=== PATIENT | female | born 1940 | race Hispanic/Latino ===

== ENCOUNTER 2018-05-14 18:36 | Inpatient (IN) | payer MEDICARE, OTHER ==
[2018-05-14] MEDS ORDERED: Sodium Chloride 0.9% 1,000 ML IV ONE (19:06)
[2018-05-14] MEDS ORDERED: Sodium Chloride 0.9% 500 ML IV ONE ×2 (19:06→19:38)
--- NOTE | 2018-05-14 19:09 | C.PDOC ---
Chief Complaint (Nursing): GI Problem Past Medical History Vital Signs: Last Vital Signs Temp 97.7 F 05/14/18 18:49 Pulse 85 05/14/18 18:49 Resp 20 05/14/18 18:49 BP 152/96 H 05/14/18 18:49 Pulse Ox 99 05/14/18 18:49 - Medical History PMH: CHF, COPD, HTN - Social History Hx Tobacco Use: No Hx Alcohol Use: No Hx Substance Use: No - Immunization History Hx Tetanus Toxoid Vaccination: No Hx Influenza Vaccination: No Hx Pneumococcal Vaccination: No ED Course And Treatment ECG: Interpreted By Me, Viewed By Me ECG Rhythm: Sinus Rhythm, R BBB, ST/T Changes ECG Interpretation: No Acute Changes Interpretation Of ECG: Sinusrhythm with premature supraventricular complexes, prolonged QT. abnormal tracings. Rate From EC O2 Sat by Pulse Oximetry: 99 Pulse Ox Interpretation: Normal Disposition - Disposition
--- NOTE | 2018-05-14 19:11 | C.PDOC ---
History Of Present Illness 77 year old female presents to the ED for evaluation of left lower abdominal pain x7 associated with vomiting x3 days and diarrhea x2 days. She denies fever, chills, back pain, urine changes, vaginal changes, and any other associated symptoms. Chief Complaint (Nursing): GI Problem History Per: Patient History/Exam Limitations: no limitations Onset/Duration Of Symptoms: Days Current Symptoms Are (Timing): Still Present Past Medical History Reviewed: Historical Data, Nursing Documentation, Vital Signs Vital Signs: Last Vital Signs Temp 97.7 F 05/14/18 18:49 Pulse 85 05/14/18 18:49 Resp 20 05/14/18 18:49 BP 152/96 H 05/14/18 18:49 Pulse Ox 99 05/14/18 18:49 - Medical History PMH: CHF, COPD, HTN Family History: States: Unknown Family Hx - Social History Hx Tobacco Use: No Hx Alcohol Use: No Hx Substance Use: No - Immunization History Hx Tetanus Toxoid Vaccination: No Hx Influenza Vaccination: No Hx Pneumococcal Vaccination: No Review Of Systems Except As Marked, All Systems Reviewed And Found Negative. Constitutional: Negative for: Fever, Chills Gastrointestinal: Positive for: Vomiting, Abdominal Pain ( left lower quadrant.), Diarrhea Genitourinary: Negative for: Frequency, Incontinence, Vaginal Discharge, Vaginal Bleeding Musculoskeletal: Negative for: Back Pain Physical Exam - Physical Exam Appears: Well, Non-toxic, Other (mild distress. ) Skin: Normal Color, Warm, Dry Head: Atraumatic, Normacephalic Eye(s): bilateral: Normal Inspection Oral Mucosa: Moist Neck: Normal ROM, Supple Chest: Symmetrical, No Deformity Cardiovascular: Rhythm Regular, No Murmur Respiratory: Normal Breath Sounds, No Rales, No Rhonchi, No Wheezing Gastrointestinal/Abdominal: Soft, Tenderness (over the left lower quadrant. ), No Mass, No Distention, No Guarding, No Rebound Back: Normal Inspection, No CVA Tenderness Neurological/Psych: Oriented x3, Normal Speech, Normal Cognition ED Course And Treatment - Laboratory Results Result Diagrams: 05/14/18 19:33 05/14/18 19:33 ECG: Interpreted By Me, Viewed By Me ECG Rhythm: Sinus Rhythm, R BBB, ST/T Changes ECG Interpretation: No Acute Changes Interpretation Of ECG: Sinusrhythm with premature supraventricular complexes, prolonged QT. abnormal tracings. Rate From EC O2 Sat by Pulse Oximetry: 99 (RA) Pulse Ox Interpretation: Normal Medical Decision Making Medical Decision Making: Plan: --CT ABD Pelvis PO and IV contrast --Blood sent. --Urinalysis. CT abd/pel ordered but patient refused to take PO or IV contrast Disposition Discussed With : Leander Acuna Doctor Will See Patient In The: Hospital Counseled Patient/Family Regarding: Diagnosis - Disposition Disposition: HOSPITALIZED Disposition Time: 22:36 Condition: STABLE Forms: [employer] (Algerian) - POA Present On Arrival: None - Clinical Impression Clinical Impression: Pneumonia, SBO (small bowel obstruction) - Scribe Statement The provider has reviewed the documentation as recorded by the Scribe (Ivana Caal) Provider Attestation: All medical record entries made by the Scribe were at my direction and person ally dictated by me. I have reviewed the chart and agree that the record accurately reflects my personal performance of the history, physical exam, medical decision making, and the department course for this patient. I have also personally directed, reviewed, and agree with the discharge instructions and disposition.
[2018-05-14 19:38] LABS: BASO % 0.2 % (0.0-2.0); EOS # 0.1 K/uL (0.0-0.7); EOS % 0.5 % (0.0-4.0); HEMOGLOBIN 11.4 g/dL (11.0-16.0); LYMPH # 1.1 K/uL (1.0-4.3); LYMPH % 7.8 % (20.0-40.0); MEAN CELL VOLUME 80.1 fL (81.0-99.0); MEAN CORPUSCULAR HEMOGLOBIN 25.7 pg (27.0-31.0); MEAN CORPUSCULAR HGB CONC 32.1 g/dL (33.0-37.0); MONO % 7.2 % (0.0-10.0); NEUT # 11.9 K/uL (1.8-7.0); NEUT % 84.3 % (50.0-75.0); PLATELET COUNT 252 K/uL (130-400); RBC 4.44 Mil/uL (3.80-5.20); RED CELL DISTRIBUTION WIDTH 16.8 % (11.5-14.5); WHITE BLOOD COUNT 14.1 K/uL (4.8-10.8)
[2018-05-14] MEDS ORDERED: Iohexol 240 (50 ml) PO ONE (19:48)
[2018-05-14 20:02] LABS: ALT/SGPT 18 U/L (9-52); AST/SGOT 14 U/L (14-36); BLOOD UREA NITROGEN 17 mg/dL (7-17); CALCIUM 8.5 mg/dl (8.6-10.4); GFR NON-AFRICAN AMERICAN > 60; LIPASE 15 U/L (23-300)
[2018-05-14 20:05] LABS: BANDS 6 % (0-2); BASOPHIL 1 % (0-2); EOSINOPHIL 2 % (0-4); LYMPHOCYTE 7 % (20-40); TOTAL CELLS COUNTED 100
[2018-05-14 20:06] LABS: HYPOCHROMIC SLIGHT; MICROCYTOSIS SLIGHT; MONOCYTE 2 % (0-10); NEUTROPHIL 82 % (50-75); OVALOCYTES SLIGHT; PLATELET ESTIMATE NORMAL (NORMAL)
[2018-05-14] MEDS ORDERED: Potassium Chloride 20 mEq/15 ml LIQ UD PO STA (20:48)
[2018-05-14] MEDS ORDERED: Potassium Chloride 20 mEq/15 ml LIQ UD ONE (21:27)
[2018-05-14] MEDS ORDERED: Sodium Chloride 0.9% 1,000 ML ONE (21:38)
[2018-05-14 22:19] LABS: SQUAMOUS EPITHIAL 4 /hpf (0-5); URINE AMORPHOUS SEDIMENT FEW /ul (<OCC); URINE BACTERIA RARE (<OCC); URINE BILIRUBIN NEGATIVE (NEGATIVE); URINE BLOOD NEGATIVE (NEGATIVE); URINE CLARITY Hazy (Clear); URINE COLOR Yellow (YELLOW); URINE GLUCOSE (UA) NORMAL (Normal); URINE LEUKOCYTE ESTERASE NEG Leu/uL (Negative); URINE PROTEIN NEGATIVE (NEGATIVE); URINE UROBILINOGEN NORMAL mg/dL (0.2-1.0)
[2018-05-14] MEDS ORDERED: Moxifloxacin IV 400mg/250ml NS 400 MG/250 ML BAG IVPB ONE (22:23)
[2018-05-14] MEDS ORDERED: Azithromycin 500mg/250ML NS 500 MG/250 ML BAG IV STA (22:24)
[2018-05-15] MEDS: Dextrose 5%/0.45% NS 1,000 ML IV SCH ×2 (01:20→11:19)
--- NOTE | 2018-05-15 04:52 | CP.PCM.CON ---
<PepechrystalDiogo - Last Filed: 05/15/18 04:45> History of Present Illness - History of Present Illness History of Present Illness: General surgery Consult Note for Dr. Dobbs This is a 77F with a PMH of HTN, DM, and CHF who presents to the ED due to one day history of nausea and vomiting. She reports this has started over a month ago with abdominal pain however she came to the ED today because aftereating she was throwing up. She reports that she had a bowel movement the morning of 05/14 a nd has been passing gas regularly. She reports that for the past month her bowel movemnts have been small however they have been normal caliber and non bloody. She is currently complaining of abdominal pain, and chills however she denies any fever, chest pain or SOB. PMH: DM, HTN, CHF PSH: Soft Tissue chest ALL: Tylenol, ASA, Clinda, PCN Review of Systems - Review of Systems Review of Systems: 12 point review of symptoms conducted and negative except for abdominal pain, nausea and vomiting, and LE edema and swelling, and scaling which is her baseline Past Patient History - Past Medical History & Family History Past Medical History?: Yes - Past Social History Smoking Status: Former Smoker - CARDIAC Hx Congestive Heart Failure: Yes Hx Hypertension: Yes - PULMONARY Hx Chronic Obstructive Pulmonary Disease (COPD): Yes - HEENT Hx Glaucoma: Yes - INTEGUMENTARY Hx Cellulitis: Yes (bilateral lower extremeties) - MUSCULOSKELETAL/RHEUMATOLOGICAL Hx Falls: Yes Hx Unsteady Gait: Yes - PSYCHIATRIC Hx Substance Use: No - SURGICAL HISTORY Hx Surgeries: No - ANESTHESIA Hx Anesthesia: No Hx Anesthesia Reactions: No Hx Malignant Hyperthermia: No Meds Allergies/Adverse Reactions: Allergies Allergy/AdvReac Type Severity Reaction Status Date / Time acetaminophen [From Tylenol] Allergy Verified 05/14/18 18:58 aspirin Allergy Verified 05/14/18 18:58 clindamycin Allergy Verified 05/14/18 18:58 Penicillins Allergy Verified 05/14/18 18:58 Sulfa (Sulfonamide Allergy Verified 05/14/18 18:58 Antibiotics) - Medications Medications: Current Medications Clonidine HCl (Catapres) 0.1 mg PO BID [facility] Furosemide (Lasix) 20 mg IVP DAILY [facility] Home Med (Carvedilol [Carvedilol]) 25 mg PO BID [facility] Home Med (Dorzolamide Hydrochloride/Ti [Dorzolamide Hydrochloride - Timolol Maleate 2]) 1 drop OU BID [facility] Sodium Chloride (Sodium Chloride 0.9%) 1,000 mls @ 100 mls/hr IV .Q10H ONE Stop: 05/15/18 05:05 Last Admin: 05/14/18 19:33 Dose: 100 mls/hr Ceftriaxone Sodium (Rocephin Iv 1 Gm Duplex) 50 mls @ 100 mls/hr IVPB DAILY [facility]; Protocol Dextrose/Sodium Chloride (Dextrose 5%/0.45% Ns 1000 Ml) 1,000 mls @ 80 mls/hr IV .[id number] [facility] Last Admin: 05/15/18 01:20 Dose: 80 mls/hr Insulin Aspart (Novolog) 0 unit SC ACHS [facility]; Protocol Losartan Potassium (Cozaar) 25 mg PO DAILY [facility] Pantoprazole Sodium (Protonix Inj) 40 mg IVP DAILY [facility] Physical Exam - Constitutional Appears: Non-toxic, No Acute Distress - Head Exam Head Exam: ATRAUMATIC, NORMOCEPHALIC - Eye Exam Eye Exam: EOMI, Normal appearance - ENT Exam ENT Exam: Mucous Membranes Moist - Respiratory Exam Respiratory Exam: NORMAL BREATHING PATTERN - Cardiovascular Exam Cardiovascular Exam: +S1, +S2 - GI/Abdominal Exam GI & Abdominal Exam: Soft, Tenderness. absent: Distended, Firm, Guarding, Hernia, Rebound, Rigid - Extremities Exam Extremities exam: Positive for: pedal edema - Neurological Exam Neurological exam: Alert, Oriented x3 - Psychiatric Exam Psychiatric exam: Normal Affect, Normal Mood - Skin Skin Exam: Dry, Intact Results - Vital Signs Recent Vital Signs: Last Vital Signs Temp 98 F 05/15/18 00:00 Pulse 85 05/15/18 00:00 Resp 20 05/15/18 00:00 BP 134/79 05/15/18 00:00 Pulse Ox 94 L 05/15/18 00:00 - Labs Result Diagrams: 05/14/18 19:33 05/14/18 19:33 Labs: Laboratory Results - last 24 hr 05/14/18 05/14/18 05/14/18 19:33 19:33 21:56 WBC 14.1 H RBC 4.44 Hgb 11.4 D Hct 35.5 MCV 80.1 L D MCH 25.7 L MCHC 32.1 L RDW 16.8 H Plt Count 252 MPV 9.0 Neut % (Auto) 84.3 H Lymph % (Auto) 7.8 L Ferry % (Auto) 7.2 Eos % (Auto) 0.5 Baso % (Auto) 0.2 Neut # (Auto) 11.9 H Lymph # (Auto) 1.1 Ferry # (Auto) 1.0 H Eos # (Auto) 0.1 Baso # (Auto) 0.0 Neutrophils % (Manual) 82 H Band Neutrophils % 6 H Lymphocytes % (Manual) 7 L Monocytes % (Manual) 2 Eosinophils % (Manual) 2 Basophils % (Manual) 1 Platelet Estimate Normal Hypochromasia (manual) Slight Microcytosis (manual) Slight Ovalocytes Slight Sodium 136 Potassium 3.2 L Chloride 97 L Carbon Dioxide 28 Anion Gap 14 BUN 17 Creatinine 0.8 Est GFR ( Amer) > 60 Est GFR (Non-Af Amer) > 60 Random Glucose 125 H Calcium 8.5 L Total Bilirubin 0.8 AST 14 ALT 18 Alkaline Phosphatase 52 Total Protein 6.1 L Albumin 3.0 L D Globulin 3.1 Albumin/Globulin Ratio 1.0 Lipase 15 L Urine Color Yellow Urine Clarity Hazy Urine pH 6.0 Ur Specific Leola 1.011 Urine Protein Negative Urine Glucose (UA) Normal Urine Ketones Trace Urine Blood Negative Urine Nitrate Negative Urine Bilirubin Negative Urine Urobilinogen Normal Ur Leukocyte Esterase Neg Urine WBC (Auto) 4 Urine RBC (Auto) 1 Ur Squamous Epith Cells 4 Amorphous Sediment Few H Urine Bacteria Rare - Imaging and Cardiology CT scan - abdomen Status: Image reviewed by me, Report reviewed by me CT scan - pelvis Status: Image reviewed by me, Report reviewed by me Assessment & Plan - Assessment and Plan (Free Text) Assessment: 77 female with nausea and vomiting Pt moving bowels and passing gas WBC 14 CT: possible right middle lobe pneumonia Pt currently refusing ngt Recommend NPO overnight Consider Clears in AM Continue management per GI and primary team No surgical management at this time however will continue to monitor D/W Dr. Dilia Walsh PGY3 <Scott Abdi - Last Filed: 05/15/18 16:01> Review of Systems - Review of Systems All systems: reviewed and no additional remarkable complaints except - Constitutional Constitutional: absent: Chills, Fever - Gastrointestinal Gastrointestinal: Abdominal Pain, Constipation, Nausea, Vomiting. absent: Dysphagia, Heartburn, Hematochezia - Genitourinary Genitourinary: absent: Urinary Incontinence, Urinary Frequency - Musculoskeletal Musculoskeletal: absent: Back Pain Meds - Medications Medications: Current Medications Carvedilol (Coreg) 25 mg PO BID [facility] Last Admin: 05/15/18 09:56 Dose: Not Given Clonidine HCl (Catapres) 0.1 mg PO BID [facility] Last Admin: 05/15/18 09:56 Dose: Not Given Furosemide (Lasix) 20 mg IVP DAILY [facility] Last Admin: 05/15/18 10:12 Dose: Not Given Home Med (Patient's Own Drops) 1 drop OU BID [facility] Dextrose/Sodium Chloride (Dextrose 5%/0.45% Ns 1000 Ml) 1,000 mls @ 80 mls/hr IV .[id number] [facility] Last Admin: 05/15/18 11:19 Dose: Not Given Azithromycin 500 mg/ Sodium (Chloride) 250 mls @ 250 mls/hr IVPB Q24H [facility]; Protocol Last Admin: 05/15/18 13:06 Dose: 250 mls/hr Influenza Virus Vaccine (Fluzone Quad [id number]) 60 mcg IM .ONCE ONE Stop: 05/16/18 10:01 Insulin Aspart (Novolog) 0 unit SC [facility]; Protocol Last Admin: 05/15/18 11:19 Dose: Not Given Losartan Potassium (Cozaar) 25 mg PO DAILY [facility] Last Admin: 05/15/18 10:11 Dose: 25 mg Pantoprazole Sodium (Protonix Inj) 40 mg IVP DAILY [facility] Last Admin: 05/15/18 10:13 Dose: Not Given Physical Exam - Head Exam Head Exam: ATRAUMATIC, NORMOCEPHALIC Results - Vital Signs Recent Vital Signs: Last Vital Signs Temp 98.1 F 05/15/18 07:37 Pulse 89 05/15/18 07:37 Resp 20 05/15/18 07:37 BP 140/70 05/15/18 10:12 Pulse Ox 95 05/15/18 07:37 - Labs Result Diagrams: 05/14/18 19:33 05/14/18 19:33 Labs: Laboratory Results - last 24 hr 05/14/18 05/14/18 05/14/18 18:42 19:33 19:33 WBC 14.1 H RBC 4.44 Hgb 11.4 D Hct 35.5 MCV 80.1 L D MCH 25.7 L MCHC 32.1 L RDW 16.8 H Plt Count 252 MPV 9.0 Neut % (Auto) 84.3 H Lymph % (Auto) 7.8 L Ferry % (Auto) 7.2 Eos % (Auto) 0.5 Baso % (Auto) 0.2 Neut # (Auto) 11.9 H Lymph # (Auto) 1.1 Ferry # (Auto) 1.0 H Eos # (Auto) 0.1 Baso # (Auto) 0.0 Neutrophils % (Manual) 82 H Band Neutrophils % 6 H Lymphocytes % (Manual) 7 L Monocytes % (Manual) 2 Eosinophils % (Manual) 2 Basophils % (Manual) 1 Platelet Estimate Normal Hypochromasia (manual) Slight Microcytosis (manual) Slight Ovalocytes Slight Sodium 136 Potassium 3.2 L Chloride 97 L Carbon Dioxide 28 Anion Gap 14 BUN 17 Creatinine 0.8 Est GFR ( Amer) > 60 Est GFR (Non-Af Amer) > 60 POC Glucose (mg/dL) 132 H Random Glucose 125 H Calcium 8.5 L Total Bilirubin 0.8 AST 14 ALT 18 Alkaline Phosphatase 52 Total Protein 6.1 L Albumin 3.0 L D Globulin 3.1 Albumin/Globulin Ratio 1.0 Lipase 15 L Urine Color Urine Clarity Urine pH Ur Specific Leola Urine Protein Urine Glucose (UA) Urine Ketones Urine Blood Urine Nitrate Urine Bilirubin Urine Urobilinogen Ur Leukocyte Esterase Urine WBC (Auto) Urine RBC (Auto) Ur Squamous Epith Cells Amorphous Sediment Urine Bacteria 05/14/18 05/15/18 05/15/18 21:56 07:32 11:05 WBC RBC Hgb Hct MCV MCH MCHC RDW Plt Count MPV Neut % (Auto) Lymph % (Auto) Ferry % (Auto) Eos % (Auto) Baso % (Auto) Neut # (Auto) Lymph # (Auto) Ferry # (Auto) Eos # (Auto) Baso # (Auto) Neutrophils % (Manual) Band Neutrophils % Lymphocytes % (Manual) Monocytes % (Manual) Eosinophils % (Manual) Basophils % (Manual) Platelet Estimate Hypochromasia (manual) Microcytosis (manual) Ovalocytes Sodium Potassium Chloride Carbon Dioxide Anion Gap BUN Creatinine Est GFR ( Amer) Est GFR (Non-Af Amer) POC Glucose (mg/dL) 128 H 119 H Random Glucose Calcium Total Bilirubin AST ALT Alkaline Phosphatase Total Protein Albumin Globulin Albumin/Globulin Ratio Lipase Urine Color Yellow Urine Clarity Hazy Urine pH 6.0 Ur Specific Leola 1.011 Urine Protein Negative Urine Glucose (UA) Normal Urine Ketones Trace Urine Blood Negative Urine Nitrate Negative Urine Bilirubin Negative Urine Urobilinogen Normal Ur Leukocyte Esterase Neg Urine WBC (Auto) 4 Urine RBC (Auto) 1 Ur Squamous Epith Cells 4 Amorphous Sediment Few H Urine Bacteria Rare
[2018-05-15] MEDS: (Novolog) Insulin Aspart, Recombinant 100 u/ml 10 ml vial SC SCH ×3 (07:35→17:20)
[2018-05-15] MEDS ORDERED: [UNRECOGNIZED DRUG - OTHER] OU SCH (10:00)
[2018-05-15] MEDS ORDERED: cefTRIAXone IV 1 gm in Dextros 50 ML IVPB SCH (10:00)
[2018-05-15] MEDS ORDERED: CARVEDILOL 25 MG PO SCH (10:00)
[2018-05-15] MEDS ORDERED: Dorzolamide 2% Opht Sol 10ml OU SCH (10:00)
[2018-05-15] MEDS ORDERED: TIMOLOL MALEATE OU SCH (10:00)
--- NOTE | 2018-05-15 11:30 | CT ---
Date of service: 05/14/2018 PROCEDURE: CT Abdomen and Pelvis. HISTORY: LLQ abdominal pain and tenderness. COMPARISON: No prior studies available for comparison. TECHNIQUE: Contiguous axial images of the abdomen and pelvis performed without oral or intravenous contrast. Given. Coronal and Sagittal reformats generated. Radiation dose: Total exam DLP = 837.98 mGy-cm. This CT exam was performed using one or more of the following dose reduction techniques: Automated exposure control, adjustment of the mA and/or kV according to patient size, and/or use of iterative reconstruction technique. FINDINGS: LOWER THORAX: Heart size the is borderline/mildly enlarged. No significant pericardial effusion. There is a tiny. There is a localized area chronic atelectasis and bronchiectasis right middle lobe. Minor scarring changes seen in the right lung base posteriorly with scarring seen in the left lung base including the lingular region which are associated with a few small nodular densities posteriorly in the left posterior sulcus and laterally along the pleural surface lateral sulcus. Findings probably represent some postinflammatory sequela however follow-up nonemergent CT scan chest could be performed for further evaluation. LIVER: Liver is of borderline enlarged measuring nearly nearly over 18 cm in CC dimension. No obvious hepatic mass or collection seen on this noncontrast exam. GALLBLADDER AND BILE DUCTS: Cholelithiasis within a partially contracted gallbladder. PANCREAS: The pancreas appears slightly atrophic and fatty replaced. Small calcifications about the pancreas felt to be vascular in origin. SPLEEN: Spleen borderline-mildly enlarged measuring nearly 13 cm in AP dimension. Attenuation pattern without masses collections or calcifications.. ADRENALS: There is a small approximately 2.2 cm elliptical shaped hypodense right adrenal lesion consistent with adenoma. Slightly nodular appearing left adrenal gland with smaller suspected smaller adenoma measuring approximately 8.5 mm. KIDNEYS AND URETERS: Kidneys demonstrate relatively symmetric size. No evidence of nephrolithiasis or hydronephrosis. BLADDER: The urinary bladder is physiologically distended. No evidence of intraluminal urinary bladder calculi.. REPRODUCTIVE: Unremarkable as visualized tiny fat containing. APPENDIX: The appendix unremarkable. BOWEL: Evaluation of the bowel slightly limited due to the lack of oral contrast material. The stomach is incompletely distended which in part accounts for thick-walled appearance. Possibility of a gastritis or other intrinsic/invasive wall lesion not excluded. There are several mildly distended loops of mid to distal small bowel in the left mid abdomen and pelvis with what appears represent a with what appears represent a minor transition point distal in the pelvis however the findings could represent an ileus. Possibility of a intermittent or partial small bowel obstruction should be excluded with followup studies. Stool is seen throughout the cecum at ascending and most of the transverse colon. There is relative collapse of the distal transverse and most of the descending colon which presumably accounts for wall thickening.. There is however a localized more significant area of wall thickening involving a short segment of the mid to distal sigmoid colon which also contains unopacified stool. Follow-up colonoscopy is recommended to assess for a invasive wall lesion-colon carcinoma. PERITONEUM: Unremarkable. No fluid collection. No free air. Tiny fat containing hernia LYMPH NODES: There may be a few small bilateral pelvic sidewall lymph nodes. VASCULATURE: Unremarkable. No aortic aneurysm. Mild aortic atherosclerotic calcification or mural plaque present. BONES: Mild to moderate multilevel degenerative spondylosis of the lower thoracic and lumbar spine. No acute compression fractures no retropulsed fragments. OTHER FINDINGS: None. IMPRESSION: There is a relatively short segment of wall thickening of the mid to distal descending colon which is concerning for invasive wall lesion such as colon carcinoma. Follow-up colonoscopy recommended. There are also several distended loops of small bowel in the left mid and lower abdomen with questionable transition point distal right parasagittal pelvis region. Findings could represent an ileus however followup studies could be performed to assess for partial and or intermittent small bowel obstruction. Bilateral adrenal adenomas. Cholelithiasis. Borderline hepatomegaly. Borderline/mild splenomegaly. Report was placed in PA review folder for followup. Study was discussed with emergency room nurse practitioner Armida at approximately 11:25 a.m. with written down and read back verification.
--- NOTE | 2018-05-15 11:30 | CARD ---
APPROVED REPORT Date of service: 05/14/2018 EKG Measurement Heart [id number] <Conclusion> Sinus rhythm with premature supraventricular complexes ST & T wave abnormality, consider inferior ischemia ST & T wave abnormality, consider anterior ischemia Prolonged QT Abnormal ECG
[2018-05-15] MEDS: Azithromycin 500 MG in Sodium Chloride 0.9% 250 ML IVPB SCH (13:06)
--- NOTE | 2018-05-15 15:58 | CP.PCM.CON ---
History of Present Illness - History of Present Illness History of Present Illness: This is a 77 year old woman with abdominal pain. Patient presented to the ER 05/14/2018 with a one-week history of abdominal pain, cramping, maximal in LLQ, associated with nausea and vomiting. She also reports having chronic constipation with small, firm bowel movements, but no bleeding. She has a good appetite and has lost four pounds in the past several weeks. She denies having difficulty swallowing and heartburn. On evaluation in the ER, the BP was elevated to 152/96, and the vital signs were otherwise stable. Abdominal exam revealed tenderness in the LLQ. CT scan showed several mildly distended loops of mid-distal small bowel in the left abdomen and pelvis and a significant area of wall thickening in the distal sig moid colon, suspicious for carcinoma. Review of Systems - Review of Systems All systems: reviewed and no additional remarkable complaints except - Constitutional Constitutional: absent: Chills, Fever - Gastrointestinal Gastrointestinal: Abdominal Pain, Constipation, Nausea, Vomiting. absent: Dysphagia, Heartburn, Hematochezia - Genitourinary Genitourinary: absent: Urinary Incontinence, Urinary Frequency - Musculoskeletal Musculoskeletal: absent: Back Pain Past Patient History - Past Medical History & Family History Past Medical History?: Yes - Past Social History Smoking Status: Former Smoker - CARDIAC Hx Congestive Heart Failure: Yes Hx Hypertension: Yes - PULMONARY Hx Chronic Obstructive Pulmonary Disease (COPD): Yes - HEENT Hx Glaucoma: Yes - INTEGUMENTARY Hx Cellulitis: Yes (bilateral lower extremeties) - MUSCULOSKELETAL/RHEUMATOLOGICAL Hx Falls: Yes Hx Unsteady Gait: Yes - PSYCHIATRIC Hx Substance Use: No - SURGICAL HISTORY Hx Surgeries: No - ANESTHESIA Hx Anesthesia: No Hx Anesthesia Reactions: No Hx Malignant Hyperthermia: No Meds Allergies/Adverse Reactions: Allergies Allergy/AdvReac Type Severity Reaction Status Date / Time acetaminophen [From Tylenol] Allergy Verified 05/14/18 18:58 aspirin Allergy Verified 05/14/18 18:58 clindamycin Allergy Verified 05/14/18 18:58 Penicillins Allergy Verified 05/14/18 18:58 Sulfa (Sulfonamide Allergy Verified 05/14/18 18:58 Antibiotics) - Medications Medications: Current Medications Carvedilol (Coreg) 25 mg PO BID [facility] Last Admin: 05/15/18 09:56 Dose: Not Given Clonidine HCl (Catapres) 0.1 mg PO BID [facility] Last Admin: 05/15/18 09:56 Dose: Not Given Furosemide (Lasix) 20 mg IVP DAILY [facility] Last Admin: 05/15/18 10:12 Dose: Not Given Home Med (Patient's Own Drops) 1 drop OU BID [facility] Dextrose/Sodium Chloride (Dextrose 5%/0.45% Ns 1000 Ml) 1,000 mls @ 80 mls/hr IV .[id number] [facility] Last Admin: 05/15/18 11:19 Dose: Not Given Azithromycin 500 mg/ Sodium (Chloride) 250 mls @ 250 mls/hr IVPB Q24H [facility]; Protocol Last Admin: 05/15/18 13:06 Dose: 250 mls/hr Influenza Virus Vaccine (Fluzone Quad [id number]) 60 mcg IM .ONCE ONE Stop: 05/16/18 10:01 Insulin Aspart (Novolog) 0 unit SC [facility]; Protocol Last Admin: 05/15/18 11:19 Dose: Not Given Losartan Potassium (Cozaar) 25 mg PO DAILY [facility] Last Admin: 05/15/18 10:11 Dose: 25 mg Pantoprazole Sodium (Protonix Inj) 40 mg IVP DAILY [facility] Last Admin: 05/15/18 10:13 Dose: Not Given Physical Exam - Constitutional Appears: No Acute Distress - Head Exam Head Exam: ATRAUMATIC, NORMOCEPHALIC - Eye Exam Eye Exam: EOMI, PERRL - Neck Exam Neck exam: Negative for: Lymphadenopathy, Thyromegaly - Respiratory Exam Respiratory Exam: NORMAL BREATHING PATTERN. absent: Rales, Rhonchi, Wheezes - Cardiovascular Exam Cardiovascular Exam: REGULAR RHYTHM, +S1, +S2. absent: Rubs, Systolic Murmur - GI/Abdominal Exam GI & Abdominal Exam: Diminished Bowel Sounds, Soft, Tenderness. absent: Mass, Organomegaly Additional comments: Mild tenderness to palpation in LUQ - Extremities Exam Extremities exam: Negative for: calf tenderness, pedal edema Results - Vital Signs Recent Vital Signs: Last Vital Signs Temp 98.1 F 05/15/18 07:37 Pulse 89 05/15/18 07:37 Resp 20 05/15/18 07:37 BP 140/70 05/15/18 10:12 Pulse Ox 95 05/15/18 07:37 - Labs Result Diagrams: 05/14/18 19:33 05/14/18 19:33 Labs: Laboratory Results - last 24 hr 05/14/18 05/14/18 05/14/18 18:42 19:33 19:33 WBC 14.1 H RBC 4.44 Hgb 11.4 D Hct 35.5 MCV 80.1 L D MCH 25.7 L MCHC 32.1 L RDW 16.8 H Plt Count 252 MPV 9.0 Neut % (Auto) 84.3 H Lymph % (Auto) 7.8 L [place] % (Auto) 7.2 Eos % (Auto) 0.5 Baso % (Auto) 0.2 Neut # (Auto) 11.9 H Lymph # (Auto) 1.1 [place] # (Auto) 1.0 H Eos # (Auto) 0.1 Baso # (Auto) 0.0 Neutrophils % (Manual) 82 H Band Neutrophils % 6 H Lymphocytes % (Manual) 7 L Monocytes % (Manual) 2 Eosinophils % (Manual) 2 Basophils % (Manual) 1 Platelet Estimate Normal Hypochromasia (manual) Slight Microcytosis (manual) Slight Ovalocytes Slight Sodium 136 Potassium 3.2 L Chloride 97 L Carbon Dioxide 28 Anion Gap 14 BUN 17 Creatinine 0.8 Est GFR ( Amer) > 60 Est GFR (Non-Af Amer) > 60 POC Glucose (mg/dL) 132 H Random Glucose 125 H Calcium 8.5 L Total Bilirubin 0.8 AST 14 ALT 18 Alkaline Phosphatase 52 Total Protein 6.1 L Albumin 3.0 L D Globulin 3.1 Albumin/Globulin Ratio 1.0 Lipase 15 L Urine Color Urine Clarity Urine pH Ur Specific [place] Urine Protein Urine Glucose (UA) Urine Ketones Urine Blood Urine Nitrate Urine Bilirubin Urine Urobilinogen Ur Leukocyte Esterase Urine WBC (Auto) Urine RBC (Auto) Ur Squamous Epith Cells Amorphous Sediment Urine Bacteria 05/14/18 05/15/18 05/15/18 21:56 07:32 11:05 WBC RBC Hgb Hct MCV MCH MCHC RDW Plt Count MPV Neut % (Auto) Lymph % (Auto) [place] % (Auto) Eos % (Auto) Baso % (Auto) Neut # (Auto) Lymph # (Auto) [place] # (Auto) Eos # (Auto) Baso # (Auto) Neutrophils % (Manual) Band Neutrophils % Lymphocytes % (Manual) Monocytes % (Manual) Eosinophils % (Manual) Basophils % (Manual) Platelet Estimate Hypochromasia (manual) Microcytosis (manual) Ovalocytes Sodium Potassium Chloride Carbon Dioxide Anion Gap BUN Creatinine Est GFR ( Amer) Est GFR (Non-Af Amer) POC Glucose (mg/dL) 128 H 119 H Random Glucose Calcium Total Bilirubin AST ALT Alkaline Phosphatase Total Protein Albumin Globulin Albumin/Globulin Ratio Lipase Urine Color Yellow Urine Clarity Hazy Urine pH 6.0 Ur Specific [place] 1.011 Urine Protein Negative Urine Glucose (UA) Normal Urine Ketones Trace Urine Blood Negative Urine Nitrate Negative Urine Bilirubin Negative Urine Urobilinogen Normal Ur Leukocyte Esterase Neg Urine WBC (Auto) 4 Urine RBC (Auto) 1 Ur Squamous Epith Cells 4 Amorphous Sediment Few H Urine Bacteria Rare Assessment & Plan (1) SBO (small bowel obstruction) Assessment and Plan: CT scan showed dilated loops of small bowel and a markedly abnormal loop of sigmoid colon. Will check abdominal xray. If the small bowel is still dilated, will attempt to prep patient for colonoscopy with enemas. Status: Acute
--- NOTE | 2018-05-15 15:59 | CP.PCM.CON ---
History of Present Illness - History of Present Illness History of Present Illness: Reason for consultation: pneumonia HPI: 77-year-old female presents to the ED for left lower abdominal pain. PMH: CHF, COPD, HTN, glaucoma FHx: unknown SHx: Denies current tobacco, alcohol or other substance use. Allergies: acetaminophen, ASA, clindamycin, penicillins, sulfa Home Meds: Lasix 40 mg PO QD, Dorzolamide Hydrochloride/Timolol 1 drop OU BID, Carvedilol 25 mg PO BID, Losartan 25 mg PO QD, Clonidine 0.1 mg PO BID, Amlod ipine 10 mg PO QD ROS: +nausea, diarrhea, slight abdominal pain. Denies SOB, cough, chest pain, fever. PE: Patient seen and examined at bedside, lying down comfortably. Afebrile and in no acute distress. EKG 05/14: Sinus rhythm with premature supraventricular comlexes. ST wave abnormalities, prolonged QT - abnormal ECG Abd/pelvis CT 05/14: RML consolidation is noted compatible with pneumonia. D ilated loops of mid abdominal small bowel with air fluid levels and transition point distally compatible with SBO. Small hiatal hernia is noted. Review of Systems - Review of Systems All systems: reviewed and no additional remarkable complaints except (abdominal pain and cough) Past Patient History - Past Medical History & Family History Past Medical History?: Yes - Past Social History Smoking Status: Former Smoker - CARDIAC Hx Congestive Heart Failure: Yes Hx Hypertension: Yes - PULMONARY Hx Chronic Obstructive Pulmonary Disease (COPD): Yes - HEENT Hx Glaucoma: Yes - INTEGUMENTARY Hx Cellulitis: Yes (bilateral lower extremeties) - MUSCULOSKELETAL/RHEUMATOLOGICAL Hx Falls: Yes Hx Unsteady Gait: Yes - PSYCHIATRIC Hx Substance Use: No - SURGICAL HISTORY Hx Surgeries: No - ANESTHESIA Hx Anesthesia: No Hx Anesthesia Reactions: No Hx Malignant Hyperthermia: No Meds Allergies/Adverse Reactions: Allergies Allergy/AdvReac Type Severity Reaction Status Date / Time acetaminophen [From Tylenol] Allergy Verified 05/14/18 18:58 aspirin Allergy Verified 05/14/18 18:58 clindamycin Allergy Verified 05/14/18 18:58 Penicillins Allergy Verified 05/14/18 18:58 Sulfa (Sulfonamide Allergy Verified 05/14/18 18:58 Antibiotics) - Medications Medications: Current Medications Carvedilol (Coreg) 25 mg PO BID [facility] Last Admin: 05/15/18 09:56 Dose: Not Given Clonidine HCl (Catapres) 0.1 mg PO BID [facility] Last Admin: 05/15/18 09:56 Dose: Not Given Furosemide (Lasix) 20 mg IVP DAILY [facility] Last Admin: 05/15/18 10:12 Dose: Not Given Home Med (Patient's Own Drops) 1 drop OU BID [facility] Dextrose/Sodium Chloride (Dextrose 5%/0.45% Ns 1000 Ml) 1,000 mls @ 80 mls/hr IV .[id number] [facility] Last Admin: 05/15/18 11:19 Dose: Not Given Azithromycin 500 mg/ Sodium (Chloride) 250 mls @ 250 mls/hr IVPB Q24H [facility]; Protocol Last Admin: 05/15/18 13:06 Dose: 250 mls/hr Influenza Virus Vaccine (Fluzone Quad [id number]) 60 mcg IM .ONCE ONE Stop: 05/16/18 10:01 Insulin Aspart (Novolog) 0 unit SC ACHS [facility]; Protocol Last Admin: 05/15/18 11:19 Dose: Not Given Losartan Potassium (Cozaar) 25 mg PO DAILY [facility] Last Admin: 05/15/18 10:11 Dose: 25 mg Pantoprazole Sodium (Protonix Inj) 40 mg IVP DAILY [facility] Last Admin: 05/15/18 10:13 Dose: Not Given Physical Exam - Head Exam Head Exam: ATRAUMATIC, NORMOCEPHALIC - ENT Exam ENT Exam: Mucous Membranes Moist - Neck Exam Neck exam: Positive for: Normal Inspection - Respiratory Exam Respiratory Exam: Clear to Auscultation Bilateral - Cardiovascular Exam Cardiovascular Exam: REGULAR RHYTHM - GI/Abdominal Exam GI & Abdominal Exam: Normal Bowel Sounds, Soft Results - Vital Signs Recent Vital Signs: Last Vital Signs Temp 98.1 F 05/15/18 07:37 Pulse 89 05/15/18 07:37 Resp 20 05/15/18 07:37 BP 140/70 05/15/18 10:12 Pulse Ox 95 05/15/18 07:37 - Labs Result Diagrams: 05/14/18 19:33 05/14/18 19:33 Labs: Laboratory Results - last 24 hr 05/14/18 05/14/18 05/14/18 18:42 19:33 19:33 WBC 14.1 H RBC 4.44 Hgb 11.4 D Hct 35.5 MCV 80.1 L D MCH 25.7 L MCHC 32.1 L RDW 16.8 H Plt Count 252 MPV 9.0 Neut % (Auto) 84.3 H Lymph % (Auto) 7.8 L [place] % (Auto) 7.2 Eos % (Auto) 0.5 Baso % (Auto) 0.2 Neut # (Auto) 11.9 H Lymph # (Auto) 1.1 [place] # (Auto) 1.0 H Eos # (Auto) 0.1 Baso # (Auto) 0.0 Neutrophils % (Manual) 82 H Band Neutrophils % 6 H Lymphocytes % (Manual) 7 L Monocytes % (Manual) 2 Eosinophils % (Manual) 2 Basophils % (Manual) 1 Platelet Estimate Normal Hypochromasia (manual) Slight Microcytosis (manual) Slight Ovalocytes Slight Sodium 136 Potassium 3.2 L Chloride 97 L Carbon Dioxide 28 Anion Gap 14 BUN 17 Creatinine 0.8 Est GFR ( Amer) > 60 Est GFR (Non-Af Amer) > 60 POC Glucose (mg/dL) 132 H Random Glucose 125 H Calcium 8.5 L Total Bilirubin 0.8 AST 14 ALT 18 Alkaline Phosphatase 52 Total Protein 6.1 L Albumin 3.0 L D Globulin 3.1 Albumin/Globulin Ratio 1.0 Lipase 15 L Urine Color Urine Clarity Urine pH Ur Specific [place] Urine Protein Urine Glucose (UA) Urine Ketones Urine Blood Urine Nitrate Urine Bilirubin Urine Urobilinogen Ur Leukocyte Esterase Urine WBC (Auto) Urine RBC (Auto) Ur Squamous Epith Cells Amorphous Sediment Urine Bacteria 05/14/18 05/15/18 05/15/18 21:56 07:32 11:05 WBC RBC Hgb Hct MCV MCH MCHC RDW Plt Count MPV Neut % (Auto) Lymph % (Auto) [place] % (Auto) Eos % (Auto) Baso % (Auto) Neut # (Auto) Lymph # (Auto) [place] # (Auto) Eos # (Auto) Baso # (Auto) Neutrophils % (Manual) Band Neutrophils % Lymphocytes % (Manual) Monocytes % (Manual) Eosinophils % (Manual) Basophils % (Manual) Platelet Estimate Hypochromasia (manual) Microcytosis (manual) Ovalocytes Sodium Potassium Chloride Carbon Dioxide Anion Gap BUN Creatinine Est GFR ( Amer) Est GFR (Non-Af Amer) POC Glucose (mg/dL) 128 H 119 H Random Glucose Calcium Total Bilirubin AST ALT Alkaline Phosphatase Total Protein Albumin Globulin Albumin/Globulin Ratio Lipase Urine Color Yellow Urine Clarity Hazy Urine pH 6.0 Ur Specific [place] 1.011 Urine Protein Negative Urine Glucose (UA) Normal Urine Ketones Trace Urine Blood Negative Urine Nitrate Negative Urine Bilirubin Negative Urine Urobilinogen Normal Ur Leukocyte Esterase Neg Urine WBC (Auto) 4 Urine RBC (Auto) 1 Ur Squamous Epith Cells 4 Amorphous Sediment Few H Urine Bacteria Rare Assessment & Plan - Assessment and Plan (Free Text) Assessment: right lower lung pneumonia Elevated white count Started on antibiotics and follow-up culture and sensitivity GI workup
[2018-05-15] MEDS: DORZOLAMIDE HCL OU SCH (18:14)
[2018-05-15] MEDS: TIMOLOL MALEATE OU SCH (18:14)
--- NOTE | 2018-05-15 18:25 | RAD ---
Date of service: 05/15/2018 PROCEDURE: Radiographs of the chest and abdomen (obstructive series) HISTORY: Follow up SBO COMPARISON: CT abdomen and pelvis from 05/14/2018 TECHNIQUE: AP radiograph of the chest, with upright and supine radiographs of the abdomen. FINDINGS: CHEST: Lungs: There are low lung volumes. Bibasilar atelectasis. Cardiovascular: Normal size heart. No pulmonary vascular congestion. No aortic atherosclerotic calcification present Pleura: No pleural fluid. No pneumothorax. Other findings: None. ABDOMEN AND PELVIS: Bowel: There is redemonstration of moderate gaseous distension of the left-sided small bowel loops. There is stool in the ascending colon and gas in the rectum. Free air: None. Bones: Multilevel degenerative changes. Other findings: None. IMPRESSION: Little interval change in known moderate gaseous distension of left-sided small bowel loops which may represent acute small bowel obstruction or ileus.
--- NOTE | 2018-05-15 19:45 | CP.PCM.CON ---
History of Present Illness - History of Present Illness History of Present Illness: INFECTIOUS DISEASE CONSULTATION POOJA CAERY MD, FACP 3T 350-A 05/15/2018 CHART REVIEWED PT EXAMINED WITH [facility] PRESENT CASE DISCUSSED WITH SUPERVISOR LIQUEFACTION THIS AM AND THIS EVENING WITH MONIQUE AND PHARMACY PATIENT DOES NOT APPEAR TO BE ALLERGIC TO PENICILLIN-HER 'ARM DISCOLORED AFTER AN INJECTION" YEARS AGO. 77 YEAR OLD WHITE FEMALE ADMITTED VIA THE ER/ED 05/14/2018 FOR ABDOMINAL PAIN- LLQ, N,V,C EDEMA X 1 WEEK. PATIENT DENIES COUGH, SPUTUM PRODUCTION, OR CORYZA LIKE SYMPTOMS. COMPLAINING OF PAIN/N/V/ AND CONSTIPATION WITH WEIGHT LOSS-ONLY QUESTION OF MUSCLE MASS DYSFUNCTION-WEAKNESS. AN INFECTIOUS DISEASE CONSULTATION WAS REQUESTED FOR POSSIBLE PNEUMONIA(?) VS INTRA-ABDOMINAL PATHOLOGY PMHX: CHF COPD HTN GLAUCOMA NO RECENT TOBACCO/ETOH VAGUE ALLERGIES: PENICILLIN-HER ARM HURT/DISCOLORED FROM AN OLD IM SHOT TYLENOL(?) CLINDA(?) CAT: SMALL BOWEL OBSTRUCTION WITH POSSIBLE ATELECTASIS AND/OR INVASIVE LIKE LESIONS IN ABDOMINAL WALL! LABS: WBC 14,100 11.4/35.5 PLTS 252, C SHIFT TO THE LEFT BS 132 K+ 3.2 GFR OVER 60 CREAT O.8 VS T 97.3 BP 145/82 P 103 R 20 AWAKE, TIRED, LOOKS ALITTLE DEHYDRATED SUPPLE NECK CHEST DECREASED BREATH SOUNDS COR RR ABD LLQ TENDERNESS, NO REBOUND PRESENTLY EXT EDEMA ID IMPRESSION: LLQ ABDOMINAL PAIN WITH N/V/C X 1 WEEK: ERGO; SBO WITH ATELECTSISI/PNEUMONIA, R/O UNDERLYING MALIGNANCY AND OR PATHOLOGY. REPEAT LABS IN AM, SEE MY ORDERS GI MANAGEMENT PLEASE ALERT ME TO ANY POSSIBLE AB MANAGEMENT CHANGES, ID EST, IF DRUGS ARE HELD OR CHANGED POSSIBLY INFLUENCING HER MEDICAL STATUS. PLEASE FEEL FREE TO INTERACT WITH ME FOR THE PATIENTS BENEFIT. POOJA CAREY MD, FACP Past Patient History - Past Medical History & Family History Past Medical History?: Yes - Past Social History Smoking Status: Former Smoker - CARDIAC Hx Congestive Heart Failure: Yes Hx Hypertension: Yes - PULMONARY Hx Chronic Obstructive Pulmonary Disease (COPD): Yes - HEENT Hx Glaucoma: Yes - INTEGUMENTARY Hx Cellulitis: Yes (bilateral lower extremeties) - MUSCULOSKELETAL/RHEUMATOLOGICAL Hx Falls: Yes Hx Unsteady Gait: Yes - PSYCHIATRIC Hx Substance Use: No - SURGICAL HISTORY Hx Surgeries: No - ANESTHESIA Hx Anesthesia: No Hx Anesthesia Reactions: No Hx Malignant Hyperthermia: No Meds Allergies/Adverse Reactions: Allergies Allergy/AdvReac Type Severity Reaction Status Date / Time acetaminophen [From Tylenol] Allergy Verified 05/14/18 18:58 aspirin Allergy Verified 05/14/18 18:58 clindamycin Allergy Verified 05/14/18 18:58 Penicillins Allergy Verified 05/14/18 18:58 Sulfa (Sulfonamide Allergy Verified 05/14/18 18:58 Antibiotics) - Medications Medications: Current Medications Carvedilol (Coreg) 25 mg PO BID [facility] Last Admin: 05/15/18 18:19 Dose: Not Given Clonidine HCl (Catapres) 0.1 mg PO BID [facility] Last Admin: 05/15/18 18:19 Dose: Not Given Furosemide (Lasix) 20 mg IVP DAILY [facility] Last Admin: 05/15/18 10:12 Dose: Not Given Home Med (Patient's Own Drops) 1 drop OU BID [facility] Last Admin: 05/15/18 18:14 Dose: 1 drop Dextrose/Sodium Chloride (Dextrose 5%/0.45% Ns 1000 Ml) 1,000 mls @ 80 mls/hr IV .[id number] [facility] Last Admin: 05/15/18 11:19 Dose: Not Given Azithromycin 500 mg/ Sodium (Chloride) 250 mls @ 250 mls/hr IVPB Q24H [facility]; Protocol Last Admin: 05/15/18 13:06 Dose: 250 mls/hr Imipenem/Cilastatin Sodium 500 (mg/ Sodium Chloride) 100 mls @ 100 mls/hr IVPB Q6H [facility]; Protocol Influenza Virus Vaccine (Fluzone Quad [id number]) 60 mcg IM .ONCE ONE Stop: 05/16/18 10:01 Insulin Aspart (Novolog) 0 unit SC ACHS [facility]; Protocol Last Admin: 05/15/18 17:20 Dose: Not Given Losartan Potassium (Cozaar) 25 mg PO DAILY [facility] Last Admin: 05/15/18 10:11 Dose: 25 mg Pantoprazole Sodium (Protonix Inj) 40 mg IVP DAILY [facility] Last Admin: 05/15/18 10:13 Dose: Not Given Results - Vital Signs Recent Vital Signs: Last Vital Signs Temp 97.3 F L 05/15/18 16:00 Pulse 86 05/15/18 16:00 Resp 20 05/15/18 16:00 BP 145/82 05/15/18 18:19 Pulse Ox 94 L 05/15/18 16:00 - Labs Result Diagrams: 05/14/18 19:33 05/14/18 19:33 Labs: Laboratory Results - last 24 hr 05/14/18 05/14/18 05/14/18 18:42 19:33 19:33 WBC 14.1 H RBC 4.44 Hgb 11.4 D Hct 35.5 MCV 80.1 L D MCH 25.7 L MCHC 32.1 L RDW 16.8 H Plt Count 252 MPV 9.0 Neut % (Auto) 84.3 H Lymph % (Auto) 7.8 L [place] % (Auto) 7.2 Eos % (Auto) 0.5 Baso % (Auto) 0.2 Neut # (Auto) 11.9 H Lymph # (Auto) 1.1 [place] # (Auto) 1.0 H Eos # (Auto) 0.1 Baso # (Auto) 0.0 Neutrophils % (Manual) 82 H Band Neutrophils % 6 H Lymphocytes % (Manual) 7 L Monocytes % (Manual) 2 Eosinophils % (Manual) 2 Basophils % (Manual) 1 Platelet Estimate Normal Hypochromasia (manual) Slight Microcytosis (manual) Slight Ovalocytes Slight Sodium 136 Potassium 3.2 L Chloride 97 L Carbon Dioxide 28 Anion Gap 14 BUN 17 Creatinine 0.8 Est GFR ( Amer) > 60 Est GFR (Non-Af Amer) > 60 POC Glucose (mg/dL) 132 H Random Glucose 125 H Calcium 8.5 L Total Bilirubin 0.8 AST 14 ALT 18 Alkaline Phosphatase 52 Total Protein 6.1 L Albumin 3.0 L D Globulin 3.1 Albumin/Globulin Ratio 1.0 Lipase 15 L Urine Color Urine Clarity Urine pH Ur Specific [place] Urine Protein Urine Glucose (UA) Urine Ketones Urine Blood Urine Nitrate Urine Bilirubin Urine Urobilinogen Ur Leukocyte Esterase Urine WBC (Auto) Urine RBC (Auto) Ur Squamous Epith Cells Amorphous Sediment Urine Bacteria 05/14/18 05/15/18 05/15/18 21:56 07:32 11:05 WBC RBC Hgb Hct MCV MCH MCHC RDW Plt Count MPV Neut % (Auto) Lymph % (Auto) [place] % (Auto) Eos % (Auto) Baso % (Auto) Neut # (Auto) Lymph # (Auto) [place] # (Auto) Eos # (Auto) Baso # (Auto) Neutrophils % (Manual) Band Neutrophils % Lymphocytes % (Manual) Monocytes % (Manual) Eosinophils % (Manual) Basophils % (Manual) Platelet Estimate Hypochromasia (manual) Microcytosis (manual) Ovalocytes Sodium Potassium Chloride Carbon Dioxide Anion Gap BUN Creatinine Est GFR ( Amer) Est GFR (Non-Af Amer) POC Glucose (mg/dL) 128 H 119 H Random Glucose Calcium Total Bilirubin AST ALT Alkaline Phosphatase Total Protein Albumin Globulin Albumin/Globulin Ratio Lipase Urine Color Yellow Urine Clarity Hazy Urine pH 6.0 Ur Specific [place] 1.011 Urine Protein Negative Urine Glucose (UA) Normal Urine Ketones Trace Urine Blood Negative Urine Nitrate Negative Urine Bilirubin Negative Urine Urobilinogen Normal Ur Leukocyte Esterase Neg Urine WBC (Auto) 4 Urine RBC (Auto) 1 Ur Squamous Epith Cells 4 Amorphous Sediment Few H Urine Bacteria Rare 05/15/18 16:24 WBC RBC Hgb Hct MCV MCH MCHC RDW Plt Count MPV Neut % (Auto) Lymph % (Auto) [place] % (Auto) Eos % (Auto) Baso % (Auto) Neut # (Auto) Lymph # (Auto) [place] # (Auto) Eos # (Auto) Baso # (Auto) Neutrophils % (Manual) Band Neutrophils % Lymphocytes % (Manual) Monocytes % (Manual) Eosinophils % (Manual) Basophils % (Manual) Platelet Estimate Hypochromasia (manual) Microcytosis (manual) Ovalocytes Sodium Potassium Chloride Carbon Dioxide Anion Gap BUN Creatinine Est GFR ( Amer) Est GFR (Non-Af Amer) POC Glucose (mg/dL) 125 H Random Glucose Calcium Total Bilirubin AST ALT Alkaline Phosphatase Total Protein Albumin Globulin Albumin/Globulin Ratio Lipase Urine Color Urine Clarity Urine pH Ur Specific [place] Urine Protein Urine Glucose (UA) Urine Ketones Urine Blood Urine Nitrate Urine Bilirubin Urine Urobilinogen Ur Leukocyte Esterase Urine WBC (Auto) Urine RBC (Auto) Ur Squamous Epith Cells Amorphous Sediment Urine Bacteria
[2018-05-16] MEDS: Dextrose 5%/0.45% NS 1,000 ML IV SCH ×3 (00:09→22:03)
--- NOTE | 2018-05-16 07:06 | HP ---
HISTORY OF PRESENT ILLNESS: A 77-year-old female, who came to the ER with abdominal pain and vomiting going on for four to five days. Also had diarrhea for two days. Denies any fever or chills. Chronic cough. She came to the Emergency Room and was evaluated by the ER physician. CAT scan had shown possible small bowel obstruction. Surgical consultation was requested with Dr. Dobbs and GI consultation requested along with the Pulmonology. PERSONAL HISTORY: Does not smoke, does not drink. ALLERGIES: PENICILLIN, SULFA and CLINDAMYCIN. FAMILY HISTORY: Sister had a cancer of the pancreas. PAST MEDICAL HISTORY: History of hypertension, borderline diabetes, COPD, and pulmonary hypertension. REVIEW OF SYSTEMS: Generalized weakness is noted. Bed to chair and walks around many times with the wheelchair. No fever. No visual disturbances. No hearing loss. No urinary complaints. Back pains are noted. Knee pains are noted. She has chronic stasis venous insufficiency and dermatitis in both legs. Abdominal pain, vomiting and diarrhea for the last two days. She has refused to have a colonoscopy on multiple occasions in the past for the past several years. She also has refused mammography. She does not take flu vaccine at times. PHYSICAL EXAMINATION: GENERAL: Shows an elderly female, who is conscious, alert, in no acute distress. VITAL SIGNS: She is 5 feet and weighs 198 pounds. Her blood pressure is 150/96, heart rate of 68, respiratory of 20 and temperature of 97.7. HEENT: Head is normocephalic. Eyes: No pallor, no icterus. NECK: Supple. No carotid bruits. LUNGS: Show decreased air entry at both the bases. HEART: Heart sounds are distant, but no definite gallops. Grade 1-2/6 systolic murmur in the mitral area. ABDOMEN: Slightly distended. Diffuse tenderness is noted. Peristalsis is normal. EXTREMITIES: 2+ edema, which is nonpitting. Chronic venous insufficiency. Distal pulses are not felt. NEUROLOGICAL: Awake, alert and oriented x3. No focal signs. Distal pulses could not be felt. LABORATORY DATA: EKG sinus rhythm, nonspecific ST changes. CT of the abdomen had shown possible CA of colon. ASSESSMENT: This is a 77-year-old female with the history of possible small bowel obstruction, rule out cancer of the colon and right lower lobe pneumonia. PLAN: To get a GI consultation, and colonoscopy. Refuses NG tube. Refuses medication. Plan as ordered and she may need surgical intervention. Prognosis is guarded. Care of plan was explained to the patient and she still refuses NG tube. The patient was seen by surgical consultation by Dr. Dobbs. We will start clear liquids. Control the blood pressure. Intravenous azithromycin for this point. Leander Acuna MD
[2018-05-16 07:11] LABS: BASO % 0.2 % (0.0-2.0); EOS # 0.1 K/uL (0.0-0.7); EOS % 0.6 % (0.0-4.0); HEMOGLOBIN 11.3 g/dL (11.0-16.0); LYMPH % 7.8 % (20.0-40.0); MEAN CELL VOLUME 80.8 fL (81.0-99.0); MEAN CORPUSCULAR HEMOGLOBIN 26.3 pg (27.0-31.0); MEAN CORPUSCULAR HGB CONC 32.6 g/dL (33.0-37.0); MEAN PLATELET VOLUME 9.9 fL (7.2-11.7); MONO # 0.9 K/uL (0.0-0.8); MONO % 7.1 % (0.0-10.0); NEUT # 10.5 K/uL (1.8-7.0); NEUT % 84.3 % (50.0-75.0); PLATELET COUNT 263 K/uL (130-400); RBC 4.28 Mil/uL (3.80-5.20); RED CELL DISTRIBUTION WIDTH 17.1 % (11.5-14.5); WHITE BLOOD COUNT 12.5 K/uL (4.8-10.8)
[2018-05-16] MEDS: (Novolog) Insulin Aspart, Recombinant 100 u/ml 10 ml vial SC SCH ×4 (07:33→22:06)
[2018-05-16 07:52] LABS: ALB/GLOB RATIO 0.9 (1.0-2.1); ALBUMIN 2.6 g/dL (3.5-5.0); ALT/SGPT 24 U/L (9-52); AST/SGOT 12 U/L (14-36); BLOOD UREA NITROGEN 8 mg/dL (7-17); CALCIUM 7.8 mg/dl (8.6-10.4); GFR NON-AFRICAN AMERICAN > 60
[2018-05-16 08:21] LABS: EOSINOPHIL 1 % (0-4); LYMPHOCYTE 7 % (20-40); MONOCYTE 3 % (0-10); NEUTROPHIL 89 % (50-75); TOTAL CELLS COUNTED 100
[2018-05-16 08:22] LABS: ANISOCYTOSIS SLIGHT; HYPOCHROMIC SLIGHT; OVALOCYTES SLIGHT; PLATELET ESTIMATE NORMAL (NORMAL); POLYCHROMIC SLIGHT
[2018-05-16 09:29] LABS: ERYTHROCYTE SEDIMENTATION RATE 12 mm/hr (0-20)
[2018-05-16] MEDS: DORZOLAMIDE HCL OU SCH ×2 (09:50→17:25)
[2018-05-16] MEDS: TIMOLOL MALEATE OU SCH ×2 (09:50→17:25)
[2018-05-16] MEDS ORDERED: Influenza Vaccine 60 MCG/0.5 ML SYR (3 yr & up) IM ONE (10:00)
[2018-05-16] MEDS: Magnesium Sulfate 1 gm in D5W 1 GM/100 ML BAG IVPB SCH ×2 (10:33→11:46)
[2018-05-16] MEDS: Azithromycin 500 MG in Sodium Chloride 0.9% 250 ML IVPB SCH (13:21)
--- NOTE | 2018-05-16 14:11 | CP.PCM.PN ---
Subjective - Date & Time of Evaluation Date of Evaluation: 05/16/18 Time of Evaluation: 14:08 - Subjective Subjective: General Surgery Progress note for Dr. Dobbs This 77F was seen and examined this AM at bedside. Overnight she had an episode of bilious emesis however right now she denies any nausea. She reports she is passing gas however she has not moved her bowels since prior to admission. Denies chest pain, SOB or any new or concerning symptoms. She reports she is now amenable to NGT if she becomes symptomatic. Objective - Vital Signs/Intake and Output Vital Signs (last 24 hours): Temp Pulse Resp BP Pulse Ox 97.1 F L 75 20 137/84 96 05/16/18 07:00 05/16/18 07:00 05/16/18 07:00 05/16/18 07:00 05/16/18 07:00 Intake and Output: 05/16/18 05/16/18 06:59 18:59 Intake Total 640 640 Balance 640 640 - Medications Medications: Current Medications Carvedilol (Coreg) 25 mg PO BID [facility] Last Admin: 05/16/18 09:51 Dose: Not Given Clonidine HCl (Catapres) 0.1 mg PO BID [facility] Last Admin: 05/16/18 09:51 Dose: Not Given Furosemide (Lasix) 20 mg IVP DAILY [facility] Last Admin: 05/16/18 09:52 Dose: Not Given Home Med (Patient's Own Drops) 1 drop OU BID [facility] Last Admin: 05/16/18 09:50 Dose: 1 drop Dextrose/Sodium Chloride (Dextrose 5%/0.45% Ns 1000 Ml) 1,000 mls @ 80 mls/hr IV .[id number] [facility] Last Admin: 05/16/18 11:32 Dose: Not Given Azithromycin 500 mg/ Sodium (Chloride) 250 mls @ 250 mls/hr IVPB Q24H [facility]; Protocol Last Admin: 05/16/18 13:21 Dose: 250 mls/hr Imipenem/Cilastatin Sodium 500 (mg/ Sodium Chloride) 100 mls @ 100 mls/hr IVPB Q6H [facility]; Protocol Last Admin: 05/16/18 13:20 Dose: 100 mls/hr Potassium Chloride (Potassium Chloride 20 Meq/100 Ml) 20 meq in 100 mls @ 50 mls/hr IVPB Q2H [facility] Stop: 05/16/18 16:29 Last Admin: 05/16/18 12:24 Dose: 50 mls/hr Insulin Aspart (Novolog) 0 unit SC ACHS [facility]; Protocol Last Admin: 05/16/18 11:33 Dose: Not Given Losartan Potassium (Cozaar) 25 mg PO DAILY [facility] Last Admin: 05/16/18 09:49 Dose: 25 mg Pantoprazole Sodium (Protonix Inj) 40 mg IVP DAILY [facility] Last Admin: 05/16/18 09:52 Dose: Not Given - Labs Labs: 05/16/18 06:58 05/16/18 06:58 - Constitutional Appears: Non-toxic, No Acute Distress - Head Exam Head Exam: ATRAUMATIC, NORMOCEPHALIC - Eye Exam Eye Exam: EOMI - ENT Exam ENT Exam: Mucous Membranes Moist - Respiratory Exam Respiratory Exam: NORMAL BREATHING PATTERN - Cardiovascular Exam Cardiovascular Exam: +S1, +S2 - GI/Abdominal Exam GI & Abdominal Exam: Soft, Tenderness. absent: Distended, Firm, Guarding, Rigid - Neurological Exam Neurological Exam: Alert, Awake - Psychiatric Exam Psychiatric exam: Normal Affect, Normal Mood - Skin Skin Exam: Dry Assessment and Plan - Assessment and Plan (Free Text) Assessment: 77 female with nausea and vomiting Pt moving bowels and passing gas WBC 14 -->12.5 CT: possible right middle lobe pneumonia Continue management per GI and primary team Follow up colonoscopy results NGT if patient becomes symptomatic Patient currently passing gas, no acute distress, no surgery at this time however if exam deteriorates will consider OR. D/W Dr. Dilia Walsh PGY3
--- NOTE | 2018-05-16 14:33 | CP.PCM.PN ---
Subjective - Date & Time of Evaluation Date of Evaluation: 05/16/18 Time of Evaluation: 14:31 - Subjective Subjective: no vominting.passes gas.for colon in am? Objective - Vital Signs/Intake and Output Vital Signs (last 24 hours): Temp Pulse Resp BP Pulse Ox 97.1 F L 75 20 137/84 96 05/16/18 07:00 05/16/18 07:00 05/16/18 07:00 05/16/18 07:00 05/16/18 07:00 Intake and Output: 05/16/18 05/16/18 06:59 18:59 Intake Total 640 640 Balance 640 640 - Medications Medications: Current Medications Carvedilol (Coreg) 25 mg PO BID [facility] Last Admin: 05/16/18 09:51 Dose: Not Given Clonidine HCl (Catapres) 0.1 mg PO BID [facility] Last Admin: 05/16/18 09:51 Dose: Not Given Home Med (Patient's Own Drops) 1 drop OU BID [facility] Last Admin: 05/16/18 09:50 Dose: 1 drop Dextrose/Sodium Chloride (Dextrose 5%/0.45% Ns 1000 Ml) 1,000 mls @ 80 mls/hr IV .[id number] [facility] Last Admin: 05/16/18 11:32 Dose: Not Given Azithromycin 500 mg/ Sodium (Chloride) 250 mls @ 250 mls/hr IVPB Q24H [facility]; Protocol Last Admin: 05/16/18 13:21 Dose: 250 mls/hr Imipenem/Cilastatin Sodium 500 (mg/ Sodium Chloride) 100 mls @ 100 mls/hr IVPB Q6H [facility]; Protocol Last Admin: 05/16/18 13:20 Dose: 100 mls/hr Potassium Chloride (Potassium Chloride 20 Meq/100 Ml) 20 meq in 100 mls @ 50 mls/hr IVPB Q2H [facility] Stop: 05/16/18 16:29 Last Admin: 05/16/18 12:24 Dose: 50 mls/hr Insulin Aspart (Novolog) 0 unit SC ACHS [facility]; Protocol Last Admin: 05/16/18 11:33 Dose: Not Given Losartan Potassium (Cozaar) 25 mg PO DAILY [facility] Last Admin: 05/16/18 09:49 Dose: 25 mg Pantoprazole Sodium (Protonix Inj) 40 mg IVP DAILY [facility] Last Admin: 05/16/18 09:52 Dose: Not Given - Labs Labs: 05/16/18 06:58 05/16/18 06:58 - Constitutional Appears: No Acute Distress, Chronically Ill - Head Exam Head Exam: NORMOCEPHALIC - Eye Exam Eye Exam: Normal appearance - Neck Exam Neck Exam: Normal Inspection - Respiratory Exam Respiratory Exam: Decreased Breath Sounds - Cardiovascular Exam Cardiovascular Exam: REGULAR RHYTHM, Murmur - GI/Abdominal Exam GI & Abdominal Exam: Tenderness - Extremities Exam Extremities Exam: Pedal Edema - Neurological Exam Neurological Exam: Alert, Oriented x3 Assessment and Plan - Assessment and Plan (Free Text) Plan: pulmonary,gi & id consult appr.kcl being supplemented.for colon is am.
--- NOTE | 2018-05-16 15:14 | CP.PCM.PN ---
Subjective - Date & Time of Evaluation Date of Evaluation: 05/16/18 Time of Evaluation: 15:12 - Subjective Subjective: Patient reports nausea but no vomiting today. She passed flatus once this morning but has not had a bowel movement. She continues to complain of LLQ pain. Objective - Vital Signs/Intake and Output Vital Signs (last 24 hours): Temp Pulse Resp BP Pulse Ox 97.1 F L 75 20 137/84 96 05/16/18 07:00 05/16/18 07:00 05/16/18 07:00 05/16/18 07:00 05/16/18 07:00 Intake and Output: 05/16/18 05/16/18 06:59 18:59 Intake Total 640 640 Balance 640 640 - Medications Medications: Current Medications Carvedilol (Coreg) 25 mg PO BID [facility] Last Admin: 05/16/18 09:51 Dose: Not Given Clonidine HCl (Catapres) 0.1 mg PO BID [facility] Last Admin: 05/16/18 09:51 Dose: Not Given Home Med (Patient's Own Drops) 1 drop OU BID [facility] Last Admin: 05/16/18 09:50 Dose: 1 drop Dextrose/Sodium Chloride (Dextrose 5%/0.45% Ns 1000 Ml) 1,000 mls @ 80 mls/hr IV .[id number] [facility] Last Admin: 05/16/18 11:32 Dose: Not Given Azithromycin 500 mg/ Sodium (Chloride) 250 mls @ 250 mls/hr IVPB Q24H [facility]; Protocol Last Admin: 05/16/18 13:21 Dose: 250 mls/hr Imipenem/Cilastatin Sodium 500 (mg/ Sodium Chloride) 100 mls @ 100 mls/hr IVPB Q6H [facility]; Protocol Last Admin: 05/16/18 13:20 Dose: 100 mls/hr Potassium Chloride (Potassium Chloride 20 Meq/100 Ml) 20 meq in 100 mls @ 50 mls/hr IVPB Q2H [facility] Stop: 05/16/18 16:29 Last Admin: 05/16/18 14:31 Dose: 50 mls/hr Insulin Aspart (Novolog) 0 unit SC ACHS [facility]; Protocol Last Admin: 05/16/18 11:33 Dose: Not Given Losartan Potassium (Cozaar) 25 mg PO DAILY [facility] Last Admin: 05/16/18 09:49 Dose: 25 mg Pantoprazole Sodium (Protonix Inj) 40 mg IVP DAILY [facility] Last Admin: 05/16/18 09:52 Dose: Not Given - Labs Labs: 05/16/18 06:58 05/16/18 06:58 - Constitutional Appears: No Acute Distress - Head Exam Head Exam: ATRAUMATIC, NORMOCEPHALIC - Eye Exam Eye Exam: EOMI, PERRL - Neck Exam Neck Exam: absent: Lymphadenopathy, Thyromegaly - Respiratory Exam Respiratory Exam: NORMAL BREATHING PATTERN. absent: Rales, Rhonchi, Wheezes - Cardiovascular Exam Cardiovascular Exam: REGULAR RHYTHM, +S1, +S2. absent: Gallop, Rubs, Murmur - GI/Abdominal Exam GI & Abdominal Exam: Soft, Tenderness, Hypoactive Bowel Sounds. absent: Organomegaly - Rectal Exam Rectal Exam: Deferred - Extremities Exam Extremities Exam: absent: Calf Tenderness, Pedal Edema Assessment and Plan (1) SBO (small bowel obstruction) Assessment & Plan: Patient has not vomited today but continues to experience LLQ pain. X ray confirms persistent dilatation of SB loops in the LLQ. Possibilities include SBO related to diverticulitis or carcinoma of colon. Will repeat CT scan; if there is no evidence of diverticulitis, will perform sigmoidoscopy tomorrow. Status: Acute
[2018-05-16] MEDS ORDERED: Iodixanol 320 MG/ML 100 ML BOTTLE IV ONE (15:53)
--- NOTE | 2018-05-16 17:40 | CT ---
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 TECHNIQUE: Intravenous contrast dose: 100 cc Visipaque 320. Radiation dose: Total exam DLP = 1113.05. mGy-cm. This CT exam was performed using one or more of the following dose reduction techniques: Automated exposure control, adjustment of the mA and/or kV according to patient size, and/or use of iterative reconstruction technique. FINDINGS: LOWER THORAX: Bronchiectatic changes right middle lobe. LIVER: Unremarkable. No gross lesion or ductal dilatation. GALLBLADDER AND BILE DUCTS: Cholelithiasis without CT evidence of acute cholecystitis. PANCREAS: Unremarkable. No gross lesion or ductal dilatation. SPLEEN: Dominant splenic mass 1.5 cm. Additional smaller splenic mass 6 mm. Tiny additional splenic masses. Overall likelihood is splenic metastatic disease. Less likely would be infectious, inflammatory etiologies. ADRENALS: Stable right adrenal mass. KIDNEYS AND URETERS: Unremarkable. No hydronephrosis. No solid mass. VASCULATURE: Unremarkable. No aortic aneurysm. No atherosclerotic calcification or mural plaque present. BOWEL: Bulky pelvic mass presumably originating from the sigmoid colon inseparable from the uterus. More proximally the colon is mildly distended. The mass appears to be adherent to dilated loops of pelvic small bowel resulting in small bowel obstruction. APPENDIX: Normal appendix. PERITONEUM: Trace free fluid identified in the pelvis/cul de sac.. No free air. LYMPH NODES: Unremarkable. No enlarged lymph nodes. BLADDER: Unremarkable. REPRODUCTIVE: Unremarkable. BONES: No acute fracture. OTHER FINDINGS: None. IMPRESSION: 1. Partially necrotic pelvic mass likely originating from the sigmoid colon. There are adjacent loops of small bowel which appear to be adhesed to the mass resulting in more proximal small bowel obstruction. 2. Low-attenuation masses in the spleen suspicious for metastatic disease. 3. Trace free fluid identified in the pelvis/cul de sac. 4. Cholelithiasis without CT evidence of acute cholecystitis. 5. Additional benign and/or incidental findings described above.
--- NOTE | 2018-05-16 18:14 | CP.PCM.PN ---
Subjective - Date & Time of Evaluation Date of Evaluation: 05/16/18 Time of Evaluation: 09:00 - Subjective Subjective: patient seen and examined Still complaining of slight cough Afebrile Being treated for pneumonia Continue antibiotics Followup chest x-ray GI workup Objective - Vital Signs/Intake and Output Vital Signs (last 24 hours): Temp Pulse Resp BP Pulse Ox 97.7 F 69 18 150/73 95 05/16/18 16:00 05/16/18 16:00 05/16/18 16:00 05/16/18 16:00 05/16/18 16:00 Intake and Output: 05/16/18 05/16/18 06:59 18:59 Intake Total 640 640 Balance 640 640 - Medications Medications: Current Medications Carvedilol (Coreg) 25 mg PO BID [facility] Last Admin: 05/16/18 17:23 Dose: Not Given Clonidine HCl (Catapres) 0.1 mg PO BID [facility] Last Admin: 05/16/18 17:22 Dose: Not Given Home Med (Patient's Own Drops) 1 drop OU BID [facility] Last Admin: 05/16/18 17:25 Dose: 1 drop Dextrose/Sodium Chloride (Dextrose 5%/0.45% Ns 1000 Ml) 1,000 mls @ 80 mls/hr IV .[id number] [facility] Last Admin: 05/16/18 11:32 Dose: Not Given Azithromycin 500 mg/ Sodium (Chloride) 250 mls @ 250 mls/hr IVPB Q24H [facility]; P rotocol Last Admin: 05/16/18 13:21 Dose: 250 mls/hr Imipenem/Cilastatin Sodium 500 (mg/ Sodium Chloride) 100 mls @ 100 mls/hr IVPB Q6H [facility]; Protocol Last Admin: 05/16/18 13:20 Dose: 100 mls/hr Insulin Aspart (Novolog) 0 unit SC ACHS [facility]; Protocol Last Admin: 05/16/18 17:24 Dose: Not Given Losartan Potassium (Cozaar) 25 mg PO DAILY [facility] Last Admin: 05/16/18 09:49 Dose: 25 mg Pantoprazole Sodium (Protonix Inj) 40 mg IVP DAILY [facility] Last Admin: 05/16/18 09:52 Dose: Not Given Sodium Phosphate (Fleet Enema) 135 ml MT ONCE ONE Stop: 05/16/18 20:01 Sodium Phosphate (Fleet Enema) 135 ml MT ONCE ONE Stop: 05/17/18 06:01 - Labs Labs: 05/16/18 06:58 05/16/18 06:58
--- NOTE | 2018-05-16 20:17 | CP.PCM.PN ---
Subjective - Date & Time of Evaluation Date of Evaluation: 05/16/18 Time of Evaluation: 20:14 - Subjective Subjective: INFECTIOUS DISEASE PROGRESS NOTES POOJA CAREY MD, FACP 3T 350-A CHART REVIEWED PT EXAMINED CASE DISCUSSED WBC NOTED STILL WITH LLQ ABDOMINAL DISCOMFORT PT reports nausea but no vomiting today. She passed flatus once this morning but has not had a bowel movement. NO CLINICAL SIGNS OF PNEUMONIA Objective - Vital Signs/Intake and Output Vital Signs (last 24 hours): Temp Pulse Resp BP Pulse Ox 97.1 F L 75 20 137/84 96 05/16/18 07:00 05/16/18 07:00 05/16/18 07:00 05/16/18 07:00 05/16/18 07:00 Intake and Output: 05/16/18 05/16/18 06:59 18:59 Intake Total 640 640 Balance 640 640 - Medications Medications: Current Medications Carvedilol (Coreg) 25 mg PO BID [facility] Last Admin: 05/16/18 09:51 Dose: Not Given Clonidine HCl (Catapres) 0.1 mg PO BID [facility] Last Admin: 05/16/18 09:51 Dose: Not Given Home Med (Patient's Own Drops) 1 drop OU BID [facility] Last Admin: 05/16/18 09:50 Dose: 1 drop Dextrose/Sodium Chloride (Dextrose 5%/0.45% Ns 1000 Ml) 1,000 mls @ 80 mls/hr IV .[id number] [facility] Last Admin: 05/16/18 11:32 Dose: Not Given Azithromycin 500 mg/ Sodium (Chloride) 250 mls @ 250 mls/hr IVPB Q24H [facility]; Protocol Last Admin: 05/16/18 13:21 Dose: 250 mls/hr Imipenem/Cilastatin Sodium 500 (mg/ Sodium Chloride) 100 mls @ 100 mls/hr IVPB Q6H [facility]; Protocol Last Admin: 05/16/18 13:20 Dose: 100 mls/hr Potassium Chloride (Potassium Chloride 20 Meq/100 Ml) 20 meq in 100 mls @ 50 mls/hr IVPB Q2H [facility] Stop: 05/16/18 16:29 Last Admin: 05/16/18 14:31 Dose: 50 mls/hr Insulin Aspart (Novolog) 0 unit SC ACHS [facility]; Protocol Last Admin: 05/16/18 11:33 Dose: Not Given Losartan Potassium (Cozaar) 25 mg PO DAILY [facility] Last Admin: 05/16/18 09:49 Dose: 25 mg Pantoprazole Sodium (Protonix Inj) 40 mg IVP DAILY [facility] Last Admin: 05/16/18 09:52 Dose: Not Given - Labs Labs: 05/16/18 06:58 05/16/18 06:58 - Constitutional Appears: No Acute Distress - Head Exam Head Exam: ATRAUMATIC, NORMOCEPHALIC - Eye Exam Eye Exam: EOMI, PERRL - Neck Exam Neck Exam: absent: Lymphadenopathy, Thyromegaly - Respiratory Exam Respiratory Exam: NORMAL BREATHING PATTERN. absent: Rales, Rhonchi, Wheezes - Cardiovascular Exam Cardiovascular Exam: REGULAR RHYTHM, +S1, +S2. absent: Gallop, Rubs, Murmur - GI/Abdominal Exam GI & Abdominal Exam: Soft, Tenderness, Hypoactive Bowel Sounds. absent: Organomegaly - Rectal Exam Rectal Exam: Deferred - Extremities Exam Extremities Exam: absent: Calf Tenderness, Pedal Edema Assessment and Plan (1) SBO (small bowel obstruction) Assessment & Plan: Patient has not vomited today but continues to experience LLQ pain. X ray confirms persistent dilatation of SB loops in the LLQ. Possibilities include SBO related to diverticulitis or carcinoma of colon. Will repeat CT scan; if there is no evidence of diverticulitis, will perform sigmoidoscopy tomorrow. Status: Acute, CONTINUE ZITHROMAX AND PRIMAXIN, FOR NOW. Objective - Vital Signs/Intake and Output Vital Signs (last 24 hours): Temp Pulse Resp BP Pulse Ox 97.7 F 69 18 150/73 95 05/16/18 16:00 05/16/18 16:00 05/16/18 16:00 05/16/18 16:00 05/16/18 16:00 Intake and Output: 05/16/18 05/17/18 18:59 06:59 Intake Total 640 Balance 640 - Medications Medications: Current Medications Carvedilol (Coreg) 25 mg PO BID [facility] Last Admin: 05/16/18 17:23 Dose: Not Given Clonidine HCl (Catapres) 0.1 mg PO BID [facility] Last Admin: 05/16/18 17:22 Dose: Not Given Home Med (Patient's Own Drops) 1 drop OU BID [facility] Last Admin: 05/16/18 17:25 Dose: 1 drop Dextrose/Sodium Chloride (Dextrose 5%/0.45% Ns 1000 Ml) 1,000 mls @ 80 mls/hr IV .[id number] [facility] Last Admin: 05/16/18 11:32 Dose: Not Given Azithromycin 500 mg/ Sodium (Chloride) 250 mls @ 250 mls/hr IVPB Q24H [facility]; Protocol Last Admin: 05/16/18 13:21 Dose: 250 mls/hr Imipenem/Cilastatin Sodium 500 (mg/ Sodium Chloride) 100 mls @ 100 mls/hr IVPB Q6H [facility]; Protocol Last Admin: 05/16/18 20:04 Dose: 100 mls/hr Insulin Aspart (Novolog) 0 unit SC ACHS [facility]; Protocol Last Admin: 05/16/18 17:24 Dose: Not Given Losartan Potassium (Cozaar) 25 mg PO DAILY [facility] Last Admin: 05/16/18 09:49 Dose: 25 mg Pantoprazole Sodium (Protonix Inj) 40 mg IVP DAILY [facility] Last Admin: 05/16/18 09:52 Dose: Not Given - Labs Labs: 05/16/18 06:58 05/16/18 06:58
[2018-05-16] MEDS ORDERED: Peg-Electrolyte Oral Soln 4L (Golytely) PO ONE ×2 (20:28→22:01)
[2018-05-17] MEDS: Dextrose 5%/0.45% NS 1,000 ML IV SCH ×2 (01:46→13:37)
[2018-05-17 06:54] LABS: BASO % 0.2 % (0.0-2.0); HEMOGLOBIN 12.9 g/dL (11.0-16.0); LYMPH # 0.7 K/uL (1.0-4.3); MEAN CELL VOLUME 79.3 fL (81.0-99.0); MEAN CORPUSCULAR HGB CONC 32.7 g/dL (33.0-37.0); MEAN PLATELET VOLUME 9.6 fL (7.2-11.7); MONO # 0.5 K/uL (0.0-0.8); MONO % 3.6 % (0.0-10.0); NEUT # 12.7 K/uL (1.8-7.0); NEUT % 91.2 % (50.0-75.0); PLATELET COUNT 308 K/uL (130-400); RBC 4.99 Mil/uL (3.80-5.20); RED CELL DISTRIBUTION WIDTH 16.9 % (11.5-14.5); WHITE BLOOD COUNT 13.9 K/uL (4.8-10.8)
[2018-05-17 07:00] LABS: INR 1.4; PROTHROMBIN TIME 14.8 SECONDS (9.7-12.2)
[2018-05-17 07:35] LABS: ALBUMIN 3.2 g/dL (3.5-5.0); ALT/SGPT 19 U/L (9-52); AST/SGOT 14 U/L (14-36); BLOOD UREA NITROGEN 5 mg/dL (7-17); CALCIUM 8.1 mg/dl (8.6-10.4); GFR NON-AFRICAN AMERICAN > 60
[2018-05-17] MEDS: (Novolog) Insulin Aspart, Recombinant 100 u/ml 10 ml vial SC SCH ×2 (07:42→11:49)
--- NOTE | 2018-05-17 07:47 | CP.PCM.PN ---
Subjective - Date & Time of Evaluation Date of Evaluation: 05/17/18 Time of Evaluation: 07:44 - Subjective Subjective: Patient states that the abdominal pain is less severe this morning. She vomited a large amount last night. She denies passing gas or stool per rectum overnight. Objective - Vital Signs/Intake and Output Vital Signs (last 24 hours): Temp Pulse Resp BP Pulse Ox 97.6 F 77 20 167/87 H 96 05/17/18 00:00 05/17/18 00:00 05/17/18 00:00 05/17/18 00:00 05/17/18 00:00 - Medications Medications: Current Medications Carvedilol (Coreg) 25 mg PO BID [facility] Last Admin: 05/16/18 17:23 Dose: Not Given Clonidine HCl (Catapres) 0.1 mg PO BID [facility] Last Admin: 05/16/18 17:22 Dose: Not Given Home Med (Patient's Own Drops) 1 drop OU BID [facility] Last Admin: 05/16/18 17:25 Dose: 1 drop Dextrose/Sodium Chloride (Dextrose 5%/0.45% Ns 1000 Ml) 1,000 mls @ 80 mls/hr IV .[id number] [facility] Last Admin: 05/17/18 01:46 Dose: Not Given Azithromycin 500 mg/ Sodium (Chloride) 250 mls @ 250 mls/hr IVPB Q24H [facility]; Protocol Last Admin: 05/16/18 13:21 Dose: 250 mls/hr Imipenem/Cilastatin Sodium 500 (mg/ Sodium Chloride) 100 mls @ 100 mls/hr IVPB Q6H [facility]; Protocol Last Admin: 05/17/18 01:45 Dose: 100 mls/hr Insulin Aspart (Novolog) 0 unit SC ACHS [facility]; Protocol Last Admin: 05/17/18 07:42 Dose: Not Given Losartan Potassium (Cozaar) 25 mg PO DAILY [facility] Last Admin: 05/16/18 09:49 Dose: 25 mg Ondansetron HCl (Zofran Inj) 4 mg IVP Q4H PRN PRN Reason: Nausea/Vomiting Last Admin: 05/17/18 04:19 Dose: 4 mg Pantoprazole Sodium (Protonix Inj) 40 mg IVP DAILY [facility] Last Admin: 05/16/18 09:52 Dose: Not Given - Labs Labs: 05/17/18 06:32 05/17/18 06:32 PT 14.8 SECONDS (9.7-12.2) H 05/17/18 06:32 INR 1.4 05/17/18 06:32 APTT 28 SECONDS (21-34) 05/17/18 06:32 - Constitutional Appears: No Acute Distress - Head Exam Head Exam: ATRAUMATIC, NORMOCEPHALIC - Eye Exam Eye Exam: EOMI, PERRL - Neck Exam Neck Exam: absent: Lymphadenopathy, Thyromegaly - Respiratory Exam Respiratory Exam: NORMAL BREATHING PATTERN. absent: Rales, Rhonchi, Wheezes - Cardiovascular Exam Cardiovascular Exam: REGULAR RHYTHM, +S1, +S2. absent: Gallop, Rubs, Murmur - GI/Abdominal Exam GI & Abdominal Exam: Soft, Tenderness, Hypoactive Bowel Sounds. absent: Organomegaly - Rectal Exam Rectal Exam: Deferred - Extremities Exam Extremities Exam: absent: Calf Tenderness, Pedal Edema Assessment and Plan (1) SBO (small bowel obstruction) Assessment & Plan: Repeat CT scan shows necrotic mass arising from distal sigmoid colon and adherent to SB loops causing SBO. Discussed with Dr. Dobbs; plan is for exploratory laparotomy today. Status: Acute
[2018-05-17 08:38] LABS: LYMPHOCYTE 4 % (20-40); MONOCYTE 5 % (0-10); NEUTROPHIL 91 % (50-75); TOTAL CELLS COUNTED 100
[2018-05-17 08:39] LABS: ANISOCYTOSIS SLIGHT; PLATELET ESTIMATE NORMAL (NORMAL)
[2018-05-17 08:40] LABS: OVALOCYTES SLIGHT
[2018-05-17] MEDS: DORZOLAMIDE HCL OU SCH ×2 (09:31→21:28)
[2018-05-17] MEDS: TIMOLOL MALEATE OU SCH ×2 (09:31→21:28)
[2018-05-17 10:26] LABS: ABG ALLEN TEST POS; ARTERIAL BLOOD GAS HCO3 30.2 mmol/L (21-28); ARTERIAL BLOOD GAS HEMOGLOBIN 13.2 g/dL (11.7-17.4); ARTERIAL BLOOD GAS O2 SAT 94.8 % (95-98); ARTERIAL BLOOD GAS PCO2 37 mm/Hg (35-45); ARTERIAL BLOOD GAS PH 7.52 (7.35-7.45); ARTERIAL BLOOD GAS PO2 67 mm/Hg (80-100); ARTERIAL BLOOD GAS TCO2 31.3 mmol/L (22-28)
--- NOTE | 2018-05-17 10:29 | CP.PCM.PN ---
Subjective - Date & Time of Evaluation Date of Evaluation: 05/17/18 Time of Evaluation: 10:27 - Subjective Subjective: vomited last night.k is 3.2,being supllemented Objective - Vital Signs/Intake and Output Vital Signs (last 24 hours): Temp Pulse Resp BP Pulse Ox 97.6 F 77 20 167/87 H 96 05/17/18 00:00 05/17/18 00:00 05/17/18 00:00 05/17/18 00:00 05/17/18 00:00 - Medications Medications: Current Medications Carvedilol (Coreg) 25 mg PO BID [facility] Last Admin: 05/17/18 09:34 Dose: Not Given Clonidine HCl (Catapres) 0.1 mg PO BID [facility] Last Admin: 05/17/18 09:34 Dose: Not Given Home Med (Patient's Own Drops) 1 drop OU BID [facility] Last Admin: 05/17/18 09:31 Dose: 1 drop Dextrose/Sodium Chloride (Dextrose 5%/0.45% Ns 1000 Ml) 1,000 mls @ 80 mls/hr IV .[id number] [facility] Last Admin: 05/17/18 01:46 Dose: Not Given Azithromycin 500 mg/ Sodium (Chloride) 250 mls @ 250 mls/hr IVPB Q24H [facility]; Protocol Last Admin: 05/16/18 13:21 Dose: 250 mls/hr Imipenem/Cilastatin Sodium 500 (mg/ Sodium Chloride) 100 mls @ 100 mls/hr IVPB Q6H [facility]; Protocol Last Admin: 05/17/18 07:55 Dose: 100 mls/hr Potassium Chloride (Potassium Chloride 20 Meq/100 Ml) 20 meq in 100 mls @ 50 mls/hr IVPB Q2 [facility] Stop: 05/17/18 13:59 Last Admin: 05/17/18 09:33 Dose: 50 mls/hr Insulin Aspart (Novolog) 0 unit SC ACHS [facility]; Protocol Last Admin: 05/17/18 07:42 Dose: Not Given Losartan Potassium (Cozaar) 25 mg PO DAILY [facility] Last Admin: 05/17/18 09:31 Dose: 25 mg Ondansetron HCl (Zofran Inj) 4 mg IVP Q4H PRN PRN Reason: Nausea/Vomiting Last Admin: 05/17/18 04:19 Dose: 4 mg Pantoprazole Sodium (Protonix Inj) 40 mg IVP DAILY [facility] Last Admin: 05/17/18 09:34 Dose: Not Given - Labs Labs: 05/17/18 06:32 05/17/18 06:32 PT 14.8 SECONDS (9.7-12.2) H 05/17/18 06:32 INR 1.4 05/17/18 06:32 APTT 28 SECONDS (21-34) 05/17/18 06:32 - Constitutional Appears: No Acute Distress, Chronically Ill - Head Exam Head Exam: NORMOCEPHALIC - Neck Exam Neck Exam: Normal Inspection - Respiratory Exam Respiratory Exam: Decreased Breath Sounds - Cardiovascular Exam Cardiovascular Exam: REGULAR RHYTHM - GI/Abdominal Exam GI & Abdominal Exam: Tenderness - Extremities Exam Extremities Exam: Pedal Edema - Neurological Exam Neurological Exam: Alert, Oriented x3 Assessment and Plan - Assessment and Plan (Free Text) Plan: diss with dr blackmon,gi f/u noted.needs or.ct pul & id f/u.care of plan explained to pt & her nephew.
--- NOTE | 2018-05-17 13:23 | CP.PCM.PN ---
Subjective - Date & Time of Evaluation Date of Evaluation: 05/17/18 Time of Evaluation: 10:00 - Subjective Subjective: the patient seen and examined Lying comfortably in no distress Denies shortness of breath and complaining of slight cough Afebrile Repeat CT scan shows necrotic mass arising from distal sigmoid colon and adherent to SB loops causing SBO. Objective - Vital Signs/Intake and Output Vital Signs (last 24 hours): Temp Pulse Resp BP Pulse Ox 97.6 F 77 20 167/87 H 96 05/17/18 00:00 05/17/18 00:00 05/17/18 00:00 05/17/18 00:00 05/17/18 00:00 - Medications Medications: Current Medications Carvedilol (Coreg) 25 mg PO BID [facility] Last Admin: 05/17/18 09:34 Dose: Not Given Clonidine HCl (Catapres) 0.1 mg PO BID [facility] Last Admin: 05/17/18 09:34 Dose: Not Given Home Med (Patient's Own Drops) 1 drop OU BID [facility] Last Admin: 05/17/18 09:31 Dose: 1 drop Dextrose/Sodium Chloride (Dextrose 5%/0.45% Ns 1000 Ml) 1,000 mls @ 80 mls/hr IV .[id number] [facility] Last Admin: 05/17/18 01:46 Dose: Not Given Azithromycin 500 mg/ Sodium (Chloride) 250 mls @ 250 mls/hr IVPB Q24H [facility]; Protocol Last Admin: 05/16/18 13:21 Dose: 250 mls/hr Imipenem/Cilastatin Sodium 500 (mg/ Sodium Chloride) 100 mls @ 100 mls/hr IVPB Q6H [facility]; Protocol Last Admin: 05/17/18 07:55 Dose: 100 mls/hr Potassium Chloride (Potassium Chloride 20 Meq/100 Ml) 20 meq in 100 mls @ 50 mls/hr IVPB Q2 [facility] Stop: 05/17/18 13:59 Last Admin: 05/17/18 13:07 Dose: 50 mls/hr Insulin Aspart (Novolog) 0 unit SC ACHS [facility]; Protocol Last Admin: 05/17/18 11:49 Dose: Not Given Losartan Potassium (Cozaar) 25 mg PO DAILY [facility] Last Admin: 05/17/18 09:31 Dose: 25 mg Ondansetron HCl (Zofran Inj) 4 mg IVP Q4H PRN PRN Reason: Nausea/Vomiting Last Admin: 05/17/18 04:19 Dose: 4 mg Pantoprazole Sodium (Protonix Inj) 40 mg IVP DAILY [facility] Last Admin: 05/17/18 09:34 Dose: Not Given - Labs Labs: 05/17/18 06:32 05/17/18 06:32 PT 14.8 SECONDS (9.7-12.2) H 05/17/18 06:32 INR 1.4 05/17/18 06:32 APTT 28 SECONDS (21-34) 05/17/18 06:32 - Head Exam Head Exam: ATRAUMATIC, NORMOCEPHALIC - ENT Exam ENT Exam: Mucous Membranes Moist - Neck Exam Neck Exam: Normal Inspection - Respiratory Exam Respiratory Exam: Clear to Ausculation Bilateral - Cardiovascular Exam Cardiovascular Exam: REGULAR RHYTHM - GI/Abdominal Exam GI & Abdominal Exam: Soft Assessment and Plan (1) Pneumonia Assessment & Plan: Small infiltrate On antibiotics Patient is low to moderate risk for surgery from pulmonary standpoint Status: Acute (2) SBO (small bowel obstruction) Status: Acute
[2018-05-17] MEDS: Azithromycin 500 MG in Sodium Chloride 0.9% 250 ML IVPB SCH ×2 (13:37→15:00)
[2018-05-17] MEDS ORDERED: Midazolam 2 MG/2 ML VIAL ONE (14:51)
[2018-05-17] MEDS ORDERED: Propofol 10 mg/ml Inj (20 ML) ONE (14:52)
[2018-05-17] MEDS ORDERED: ePHEDrine 50 mg/ml Inj ONE (16:10)
[2018-05-17] MEDS ORDERED: Methylene Blue 10 mg/mL(10ml) IV ONE (16:20)
[2018-05-17] MEDS ORDERED: Rocuronium 10 mg/ml (5 ml) ONE (16:56)
[2018-05-17] MEDS ORDERED: Neostigmine Methylsulfate 3mg/3ml Syringe IV ONE (18:11)
--- NOTE | 2018-05-17 18:33 | PCM.SURG1 ---
Surgeon's Initial Post Op Note - Surgeon's Notes Surgeon: Dr. Dobbs Machine Umbrella Tipper: Dr. Walsh PGY3, Dr. Montgomery PGY2 Type of Anesthesia: General Endo Anesthesia Administered By: Dr. Arteaga Pre-Operative Diagnosis: Sigmoid Mass Operative Findings: See operative dictation Post-Operative Diagnosis: Same Operation Performed: LAR with primary anastamosis and incidental appendectomy Specimen/Specimens Removed: Appendix, Sigmoid Colon Estimated Blood Loss: EBL {In ML}: 200 Blood Products Given: N/A Drains Used: No Drains Post-Op Condition: Good Date of Surgery/Procedure: 05/17/18 Time of Surgery/Procedure: 18:33
[2018-05-17 18:51] LABS: BASO # 0.1 K/uL (0.0-0.2); BASO % 0.3 % (0.0-2.0); EOS # 0.1 K/uL (0.0-0.7); EOS % 0.3 % (0.0-4.0); HEMOGLOBIN 13.4 g/dL (11.0-16.0); LYMPH # 1.3 K/uL (1.0-4.3); MEAN CELL VOLUME 81.2 fL (81.0-99.0); MEAN CORPUSCULAR HEMOGLOBIN 25.5 pg (27.0-31.0); MEAN CORPUSCULAR HGB CONC 31.5 g/dL (33.0-37.0); MEAN PLATELET VOLUME 9.1 fL (7.2-11.7); MONO # 1.2 K/uL (0.0-0.8); MONO % 5.8 % (0.0-10.0); NEUT # 18.4 K/uL (1.8-7.0); NEUT % 87.6 % (50.0-75.0); NRBC % 0.1 % (0.0-2.0); PLATELET COUNT 381 K/uL (130-400); RBC 5.24 Mil/uL (3.80-5.20); RED CELL DISTRIBUTION WIDTH 16.9 % (11.5-14.5)
[2018-05-17] MEDS: HYDROmorphone 0.5 mg/0.5 ml ISec IVP PRN ×2 (18:59→19:15)
[2018-05-17 19:04] LABS: ALBUMIN 2.7 g/dL (3.5-5.0); ALT/SGPT 21 U/L (9-52); AST/SGOT 20 U/L (14-36); BLOOD UREA NITROGEN 7 mg/dL (7-17); CALCIUM 7.9 mg/dl (8.6-10.4); GFR NON-AFRICAN AMERICAN > 60
[2018-05-17 19:51] LABS: BANDS 3 % (0-2); LYMPHOCYTE 5 % (20-40); MONOCYTE 4 % (0-10); NEUTROPHIL 88 % (50-75); PLATELET ESTIMATE NORMAL (NORMAL); TOTAL CELLS COUNTED 100
[2018-05-17 19:52] LABS: ANISOCYTOSIS SLIGHT; BURR CELLS SLIGHT; HYPOCHROMIC SLIGHT; OVALOCYTES SLIGHT
[2018-05-17] MEDS: Lactated Ringer's 1,000 ML IV SCH (19:55)
[2018-05-18] MEDS: HYDROmorphone 0.5 mg/0.5 ml ISec IVP PRN ×5 (00:16→23:37)
[2018-05-18] MEDS: (Novolog) Insulin Aspart, Recombinant 100 u/ml 10 ml vial SC SCH ×4 (00:19→17:43)
--- NOTE | 2018-05-18 05:29 | OP ---
PROCEDURE DATE: 05/17/2018 PREOPERATIVE DIAGNOSES: Bowel obstruction, obstructing tumor of sigmoid colon. PROCEDURE CARRIED OUT: Low anterior resection and incidental appendectomy. SURGEON: Luís Dobbs Jr., MD CARDI[facility] CARE UN[facility] NURSE: Diogo Walsh DO ANESTHESIOLOGIST: Dr. Arteaga. INDICATIONS: The patient is a 77-year-old women, admitted to the hospital with abdominal pain, distention and vomiting. Initial CAT scan suggests small bowel obstruction. Repeat studies on hospital observation demonstrated that this is a tumor in the sigmoid colon. OPERATIVE FINDINGS: 1. The liver was free of significant disease. 2. The gallbladder was full of multiple small stones, but was non-inflamed. We did not palpate the spleen. The stomach was free of significant disease. We ran the small bowel numerous times including just prior to closure, and there were no rents, damage or injuries. There is a large bulky tumor with a size of baby's head in the left pelvis. We mobilized this above and below. After we had done this and dissected it off the uterus. We then resected the tumor, marked its distal end and submitted for examination. We did not open the specimen. We then carried out also the incidental appendectomy. as the appendix was lying right in the middle of the field. This was stapled off. We then carried out a 29-EEA anastomosis from the rectum using an EEA device. This was an airtight closure. This was checked with air insufflation under water, and there was no evidence of any leak. Then, we checked the donuts, and there were two intact donuts. We then closed the abdomen with running sutures of Novafil and PDS and closed the skin with skin clips. BLOOD LOSS: 250 mL. OPERATION CARRIED OUT: Low anterior resection and incidental appendectomy. BASIC FINDINGS: Large bulky tumor adherent to the uterus. This was dissected free. We were unable to identify the ureter on the left side. We did use methylene blue during the operation, and there was no sign of any leak or extravasation Luís Dobbs Jr., MD cc: 1. Scott Abdi MD 2. Leander Acuna MD GERARDO
[2018-05-18 06:21] LABS: BASO % 0.1 % (0.0-2.0); LYMPH # 0.8 K/uL (1.0-4.3); MONO # 1.1 K/uL (0.0-0.8)
[2018-05-18 06:23] LABS: HEMOGLOBIN 12.6 g/dL (11.0-16.0); MEAN CELL VOLUME 80.1 fL (81.0-99.0); MEAN CORPUSCULAR HEMOGLOBIN 25.9 pg (27.0-31.0); MEAN CORPUSCULAR HGB CONC 32.3 g/dL (33.0-37.0); MEAN PLATELET VOLUME 9.7 fL (7.2-11.7); MONO % 4.3 % (0.0-10.0); NEUT # 23.7 K/uL (1.8-7.0); NEUT % 92.6 % (50.0-75.0); PLATELET COUNT 326 K/uL (130-400); RBC 4.87 Mil/uL (3.80-5.20); WHITE BLOOD COUNT 25.6 K/uL (4.8-10.8)
[2018-05-18] MEDS: Lactated Ringer's 1,000 ML IV SCH (06:34)
[2018-05-18 06:50] LABS: ALBUMIN 2.6 g/dL (3.5-5.0); CALCIUM 7.8 mg/dl (8.6-10.4)
--- NOTE | 2018-05-18 07:46 | CP.PCM.CON ---
History of Present Illness - History of Present Illness History of Present Illness: Chief complaint: Postoperative management HPI: 77-year-old female with a history of COPD, CHF, hypertension and glaucoma admitted to the hospital with left lower quadrant abdominal pain. During the hospitalization patient was noted to have a sigmoid mass him a and patient underwent sigmoid resection, and ENT and anastomosis and appendectomy Postoperatively patient is being managed in the intensive care unit for close monitoring. Past medical history: CHF COPD hypertension, glaucoma Family history not known Social history: Patient denies any smoking or alcohol. Patient is allergic to aspirin Tylenol clindamycin penicillin and sulfa Home medications Reviewed Review of system: Currently postoperative. Comparing of abdominal pain. Denies any nausea. But feeling uncomfortable. Patient urine output was on the low side, now improving currently on IV fluid On examination: Vital signs heartbeat is 100 Blood pressure 1 3475 Respiration 19 saturation 97% Chest good air entry regular heart sound abdomen postoperative Goyal catheter draining urine Chest x-ray nonspecific Postoperatively labs reviewed Nonspecific Elevated WBC noted Assessment and recommendation: 77-year-old female with a history of COPD CHF hypertension and glaucoma admitted to icu with the left sigmoid nearly obstructing mass, status post sigmoid resection and anastomosis. Appendectomy. Patient is currently postoperative. Postoperatively pain management DVT GI prophylaxis. IV fluid. Continue to monitor in the intensive care unit Past Patient History - Past Medical History & Family History Past Medical History?: Yes - Past Social History Smoking Status: Former Smoker - CARDIAC Hx Congestive Heart Failure: Yes Hx Hypertension: Yes - PULMONARY Hx Chronic Obstructive Pulmonary Disease (COPD): Yes - HEENT Hx Glaucoma: Yes - INTEGUMENTARY Hx Cellulitis: Yes (bilateral lower extremeties) - MUSCULOSKELETAL/RHEUMATOLOGICAL Hx Falls: Yes Hx Unsteady Gait: Yes - PSYCHIATRIC Hx Substance Use: No - SURGICAL HISTORY Hx Surgeries: No - ANESTHESIA Hx Anesthesia: No Hx Anesthesia Reactions: No Hx Malignant Hyperthermia: No Meds Allergies/Adverse Reactions: Allergies Allergy/AdvReac Type Severity Reaction Status Date / Time acetaminophen [From Tylenol] Allergy Verified 05/14/18 18:58 aspirin Allergy Verified 05/14/18 18:58 clindamycin Allergy Verified 05/14/18 18:58 Penicillins Allergy Verified 05/14/18 18:58 Sulfa (Sulfonamide Allergy Verified 05/14/18 18:58 Antibiotics) - Medications Medications: Current Medications Carvedilol (Coreg) 25 mg PO BID [facility] Last Admin: 05/17/18 20:00 Dose: Not Given Clonidine HCl (Catapres) 0.1 mg PO BID [facility] Last Admin: 05/17/18 20:00 Dose: Not Given Heparin Sodium (Porcine) (Heparin) 5,000 units SC Q8 [facility] Last Admin: 05/18/18 06:29 Dose: 5,000 units Home Med (Patient's Own Drops) 1 drop OU BID [facility] Last Admin: 05/17/18 21:28 Dose: 1 drop Hydromorphone HCl (Dilaudid) 0.5 mg IVP Q4H PRN PRN Reason: Pain, moderate (4-7) Last Admin: 05/18/18 06:31 Dose: 0.5 mg Hydromorphone/Sodium Chloride (Dilaudid Cnp) 6 mg IV Q4H PRN; Protocol PRN Reason: Pain, moderate (4-7) Azithromycin 500 mg/ Sodium (Chloride) 250 mls @ 250 mls/hr IVPB Q24H [facility]; Pro tocol Last Admin: 05/17/18 15:00 Dose: 250 mls Imipenem/Cilastatin Sodium 500 (mg/ Sodium Chloride) 100 mls @ 100 mls/hr IVPB Q6H [facility]; Protocol Last Admin: 05/18/18 02:21 Dose: 100 mls/hr Lactated Ringer's (Lactated Ringer's) 1,000 mls @ 100 mls/hr IV .Q10H [facility] Last Admin: 05/18/18 06:34 Dose: 100 mls/hr Insulin Aspart (Novolog) 0 unit SC Q6H [facility]; Protocol Last Admin: 05/18/18 07:05 Dose: 1 units Losartan Potassium (Cozaar) 25 mg PO DAILY [facility] Last Admin: 05/17/18 09:31 Dose: 25 mg Ondansetron HCl (Zofran Inj) 4 mg IVP Q4H PRN PRN Reason: Nausea/Vomiting Last Admin: 05/17/18 04:19 Dose: 4 mg Pantoprazole Sodium (Protonix Inj) 40 mg IVP DAILY [facility] Last Admin: 05/17/18 09:34 Dose: Not Given Results - Vital Signs Recent Vital Signs: Last Vital Signs Temp 97.5 F L 05/17/18 19:55 Pulse 99 H 05/17/18 22:01 Resp 14 05/17/18 22:01 BP 130/75 05/17/18 22:01 Pulse Ox 96 05/17/18 22:01 - Labs Result Diagrams: 05/18/18 06:17 05/18/18 06:17 Labs: Laboratory Results - last 24 hr 05/17/18 05/17/18 05/17/18 06:32 07:40 10:15 WBC RBC Hgb Hct MCV MCH MCHC RDW Plt Count MPV Neut % (Auto) Lymph % (Auto) Banner % (Auto) Eos % (Auto) Baso % (Auto) Neut # (Auto) Lymph # (Auto) Banner # (Auto) Eos # (Auto) Baso # (Auto) Neutrophils % (Manual) 91 H Band Neutrophils % Lymphocytes % (Manual) 4 L Monocytes % (Manual) 5 Platelet Estimate Normal Hypochromasia (manual) Anisocytosis (manual) Slight Ovalocytes Slight Neftaly Cells Puncture Site Lr pCO2 37 pO2 67 L HCO3 30.2 H ABG pH 7.52 H ABG Total CO2 31.3 H ABG O2 Saturation 94.8 L ABG Base Excess 7.0 H ABG Hemoglobin 13.2 ABG Carboxyhemoglobin 1.3 POC ABG HHb (Measured) 5.0 ABG Methemoglobin 1.7 Edwin Test Pos A-a O2 Difference 36.0 Respiratory Index 0.5 Hgb O2 Saturation 92.0 L Vent Mode Room air FiO2 21.0 Sodium Potassium Chloride Carbon Dioxide Anion Gap BUN Creatinine Est GFR ( Amer) Est GFR (Non-Af Amer) POC Glucose (mg/dL) 143 H Random Glucose Calcium Phosphorus Magnesium Total Bilirubin AST ALT Alkaline Phosphatase Total Protein Albumin Globulin Albumin/Globulin Ratio Blood Type Antibody Screen 05/17/18 05/17/18 05/17/18 11:08 11:28 18:47 WBC 21.0 H D RBC 5.24 H Hgb 13.4 Hct 42.6 MCV 81.2 MCH 25.5 L MCHC 31.5 L RDW 16.9 H Plt Count 381 MPV 9.1 Neut % (Auto) 87.6 H Lymph % (Auto) 6.0 L Banner % (Auto) 5.8 Eos % (Auto) 0.3 Baso % (Auto) 0.3 Neut # (Auto) 18.4 H Lymph # (Auto) 1.3 Banner # (Auto) 1.2 H Eos # (Auto) 0.1 Baso # (Auto) 0.1 Neutrophils % (Manual) 88 H Band Neutrophils % 3 H Lymphocytes % (Manual) 5 L Monocytes % (Manual) 4 Platelet Estimate Normal Hypochromasia (manual) Slight Anisocytosis (manual) Slight Ovalocytes Slight Neftaly Cells Slight Puncture Site pCO2 pO2 HCO3 ABG pH ABG Total CO2 ABG O2 Saturation ABG Base Excess ABG Hemoglobin ABG Carboxyhemoglobin POC ABG HHb (Measured) ABG Methemoglobin Edwin Test A-a O2 Difference Respiratory Index Hgb O2 Saturation Vent Mode FiO2 Sodium Potassium Chloride Carbon Dioxide Anion Gap BUN Creatinine Est GFR ( Amer) Est GFR (Non-Af Amer) POC Glucose (mg/dL) 109 Random Glucose Calcium Phosphorus Magnesium Total Bilirubin AST ALT Alkaline Phosphatase Total Protein Albumin Globulin Albumin/Globulin Ratio Blood Type O POSITIVE Antibody Screen Negative 05/17/18 05/17/18 05/18/18 18:47 23:46 06:17 WBC 25.6 H RBC 4.87 Hgb 12.6 Hct 39.1 MCV 80.1 L MCH 25.9 L MCHC 32.3 L RDW 17.0 H Plt Count 326 MPV 9.7 Neut % (Auto) 92.6 H Lymph % (Auto) 3.0 L Banner % (Auto) 4.3 Eos % (Auto) 0.0 Baso % (Auto) 0.1 Neut # (Auto) 23.7 H Lymph # (Auto) 0.8 L Banner # (Auto) 1.1 H Eos # (Auto) 0.0 Baso # (Auto) 0.0 Neutrophils % (Manual) Band Neutrophils % Lymphocytes % (Manual) Monocytes % (Manual) Platelet Estimate Hypochromasia (manual) Anisocytosis (manual) Ovalocytes [place] Cells Puncture Site pCO2 pO2 HCO3 ABG pH ABG Total CO2 ABG O2 Saturation ABG Base Excess ABG Hemoglobin ABG Carboxyhemoglobin POC ABG HHb (Measured) ABG Methemoglobin Edwin Test A-a O2 Difference Respiratory Index Hgb O2 Saturation Vent Mode FiO2 Sodium 130 L Potassium 3.7 Chloride 98 Carbon Dioxide 23 Anion Gap 13 BUN 7 Creatinine 0.7 Est GFR ( Amer) > 60 Est GFR (Non-Af Amer) > 60 POC Glucose (mg/dL) 172 H Random Glucose 186 H Calcium 7.9 L Phosphorus Magnesium Total Bilirubin 1.0 AST 20 ALT 21 Alkaline Phosphatase 54 Total Protein 5.5 L Albumin 2.7 L Globulin 2.8 Albumin/Globulin Ratio 1.0 Blood Type Antibody Screen 05/18/18 06:17 WBC RBC Hgb Hct MCV MCH MCHC RDW Plt Count MPV Neut % (Auto) Lymph % (Auto) Banner % (Auto) Eos % (Auto) Baso % (Auto) Neut # (Auto) Lymph # (Auto) Banner # (Auto) Eos # (Auto) Baso # (Auto) Neutrophils % (Manual) Band Neutrophils % Lymphocytes % (Manual) Monocytes % (Manual) Platelet Estimate Hypochromasia (manual) Anisocytosis (manual) Ovalocytes [place] Cells Puncture Site pCO2 pO2 HCO3 ABG pH ABG Total CO2 ABG O2 Saturation ABG Base Excess ABG Hemoglobin ABG Carboxyhemoglobin POC ABG HHb (Measured) ABG Methemoglobin Edwin Test A-a O2 Difference Respiratory Index Hgb O2 Saturation Vent Mode FiO2 Sodium 133 Potassium 4.1 Chloride 100 Carbon Dioxide 22 Anion Gap 15 BUN 11 Creatinine 1.2 Est GFR ( Amer) 53 Est GFR (Non-Af Amer) 44 POC Glucose (mg/dL) Random Glucose 156 H Calcium 7.8 L Phosphorus 5.6 H Magnesium 1.4 L Total Bilirubin 1.2 AST 21 ALT 20 Alkaline Phosphatase 47 Total Protein 5.3 L Albumin 2.6 L Globulin 2.7 Albumin/Globulin Ratio 1.0 Blood Type Antibody Screen
[2018-05-18] MEDS ORDERED: Sodium Chloride 0.9% 1,000 ML IV SCH ×2 (08:15→14:23)
[2018-05-18] MEDS ORDERED: Sodium Chloride 0.9% 500 ML IV ONE (08:43)
[2018-05-18] MEDS: Albumin Human 25% (12.5 gm/50 ml) IV SCH ×3 (08:57→21:00)
[2018-05-18 09:05] LABS: ANISOCYTOSIS MODERATE; BANDS 19 % (0-2); BURR CELLS SLIGHT; HYPOCHROMIC SLIGHT; LYMPHOCYTE 4 % (20-40); MONOCYTE 5 % (0-10); NEUTROPHIL 72 % (50-75); OVALOCYTES SLIGHT; PLATELET ESTIMATE NORMAL (NORMAL); POIKILOCYTOSIS SLIGHT; POLYCHROMIC SLIGHT; TOTAL CELLS COUNTED 100
[2018-05-18 09:06] LABS: MICROCYTOSIS SLIGHT; SCHISTOCYTES SLIGHT; TOXIC GRANULATION PRESENT
[2018-05-18 09:07] LABS: ACANTHOCYTES SLIGHT
[2018-05-18 09:09] LABS: TROPONIN I 0.016 ng/mL (0.00-0.120)
[2018-05-18] MEDS: DORZOLAMIDE HCL OU SCH ×2 (09:29→17:32)
[2018-05-18] MEDS: TIMOLOL MALEATE OU SCH ×2 (09:29→17:32)
--- NOTE | 2018-05-18 09:50 | CP.PCM.PN ---
Subjective - Date & Time of Evaluation Date of Evaluation: 05/18/18 Time of Evaluation: 09:44 - Subjective Subjective: General Surgery Progress Note for Dr. Dobbs. This 77F was seen and examined this Am at bedside, overnight she pulled her NGT which had 50cc out at that time. She denies any nausea or vomiting. Denies flatus or BM. She complains of abdominal pain which I expained is to be expected after a large surgery. Objective - Vital Signs/Intake and Output Vital Signs (last 24 hours): Temp Pulse Resp BP Pulse Ox 97.5 F L 101 H 17 94/49 L 97 05/17/18 19:55 05/18/18 07:01 05/18/18 07:01 05/18/18 09:18 05/18/18 07:01 Intake and Output: 05/18/18 05/18/18 06:59 18:59 Intake Total 1100 100 Output Total 660 60 Balance 440 40 - Medications Medications: Current Medications Albumin Human (Albumin Human 25% (12.5 Gm/50 Ml)) 25 gm IV Q6H [facility] Stop: 05/19/18 02:31 Last Admin: 05/18/18 08:57 Dose: 25 gm Carvedilol (Coreg) 25 mg PO BID [facility] Last Admin: 05/18/18 09:18 Dose: Not Given Clonidine HCl (Catapres) 0.1 mg PO BID [facility] Last Admin: 05/18/18 09:18 Dose: Not Given Heparin Sodium (Porcine) (Heparin) 5,000 units SC Q8 [facility] Last Admin: 05/18/18 06:29 Dose: 5,000 units Home Med (Patient's Own Drops) 1 drop OU BID [facility] Last Admin: 05/18/18 09:29 Dose: 1 drop Hydromorphone HCl (Dilaudid) 0.5 mg IVP Q4H PRN PRN Reason: Pain, moderate (4-7) Last Admin: 05/18/18 06:31 Dose: 0.5 mg Hydromorphone/Sodium Chloride (Dilaudid [employer]) 6 mg IV Q4H PRN; Protocol PRN Reason: Pain, moderate (4-7) Azithromycin 500 mg/ Sodium (Chloride) 250 mls @ 250 mls/hr IVPB Q24H [facility]; Protocol Last Admin: 05/17/18 15:00 Dose: 250 mls Imipenem/Cilastatin Sodium 500 (mg/ Sodium Chloride) 100 mls @ 100 mls/hr IVPB Q6H [facility]; Protocol Last Admin: 05/18/18 08:07 Dose: 100 mls/hr Sodium Chloride (Sodium Chloride 0.9%) 1,000 mls @ 125 mls/hr IV .Q8H [facility] Last Admin: 05/18/18 08:52 Dose: 125 mls/hr Insulin Aspart (Novolog) 0 unit SC Q6H [facility]; Protocol Last Admin: 05/18/18 07:05 Dose: 1 units Ondansetron HCl (Zofran Inj) 4 mg IVP Q4H PRN PRN Reason: Nausea/Vomiting Last Admin: 05/17/18 04:19 Dose: 4 mg Pantoprazole Sodium (Protonix Inj) 40 mg IVP DAILY [facility] Last Admin: 05/18/18 09:31 Dose: 40 mg - Labs Labs: 05/18/18 06:17 05/18/18 06:17 PT 14.8 SECONDS (9.7-12.2) H 05/17/18 06:32 INR 1.4 05/17/18 06:32 APTT 28 SECONDS (21-34) 05/17/18 06:32 - Constitutional Appears: Non-toxic, No Acute Distress - Head Exam Head Exam: ATRAUMATIC, NORMOCEPHALIC - Eye Exam Eye Exam: EOMI - Respiratory Exam Respiratory Exam: NORMAL BREATHING PATTERN - Cardiovascular Exam Cardiovascular Exam: +S1, +S2 - GI/Abdominal Exam GI & Abdominal Exam: Soft, Tenderness. absent: Distended, Firm, Guarding, Rigid Additional comments: Dressing clean dry and intact amalia drain with 30cc sanguinous output since OR - Neurological Exam Neurological Exam: Alert, Awake - Psychiatric Exam Psychiatric exam: Normal Affect, Normal Mood - Skin Skin Exam: Dry, Intact Assessment and Plan - Assessment and Plan (Free Text) Assessment: 77F POD#1 s/p open LAR with colorectal anastomosis and incidental appendectomy. NPO IVF Follow urin output hydrate as necessary Monitor vitals Pain control Continue ABX monitor drain outputs Follow up pathology Further recs per Dr. Dilia Walsh PGY3
[2018-05-18 10:04] LABS: SQUAMOUS EPITHIAL < 1 /hpf (0-5); URINE BACTERIA FEW (<OCC); URINE BILIRUBIN NEGATIVE (NEGATIVE); URINE BLOOD 1+ (NEGATIVE); URINE CLARITY Clear (Clear); URINE COLOR Yellow (YELLOW); URINE GLUCOSE (UA) 1+ mg/dL (Normal); URINE LEUKOCYTE ESTERASE 1+ Leu/uL (Negative); URINE PROTEIN NEGATIVE (NEGATIVE)
[2018-05-18] MEDS ORDERED: Magnesium Sulfate 1 gm in D5W 1 GM/100 ML BAG IVPB ONE (10:26)
--- NOTE | 2018-05-18 10:32 | CP.PCM.PN ---
Subjective - Date & Time of Evaluation Date of Evaluation: 05/18/18 Time of Evaluation: 10:30 - Subjective Subjective: Patient seen and examined at bedside. Patient POD #1 cecal mass resection, deneis any flatus, denies any bowel movement Objective - Vital Signs/Intake and Output Vital Signs (last 24 hours): Temp Pulse Resp BP Pulse Ox 97.5 F L 101 H 17 94/49 L 97 05/17/18 19:55 05/18/18 07:01 05/18/18 07:01 05/18/18 09:18 05/18/18 07:01 Intake and Output: 05/18/18 05/18/18 06:59 18:59 Intake Total 1100 100 Output Total 660 60 Balance 440 40 - Medications Medications: Current Medications Albumin Human (Albumin Human 25% (12.5 Gm/50 Ml)) 25 gm IV Q6H [facility] Stop: 05/19/18 02:31 Last Admin: 05/18/18 08:57 Dose: 25 gm Carvedilol (Coreg) 25 mg PO BID [facility] Last Admin: 05/18/18 09:18 Dose: Not Given Clonidine HCl (Catapres) 0.1 mg PO BID [facility] Last Admin: 05/18/18 09:18 Dose: Not Given Heparin Sodium (Porcine) (Heparin) 5,000 units SC Q8 [facility] Last Admin: 05/18/18 06:29 Dose: 5,000 units Home Med (Patient's Own Drops) 1 drop OU BID [facility] Last Admin: 05/18/18 09:29 Dose: 1 drop Hydromorphone HCl (Dilaudid) 0.5 mg IVP Q4H PRN PRN Reason: Pain, moderate (4-7) Last Admin: 05/18/18 06:31 Dose: 0.5 mg Hydromorphone/Sodium Chloride (Dilaudid Plane [employer]) 6 mg IV Q4H PRN; Protocol PRN Reason: Pain, moderate (4-7) Azithromycin 500 mg/ Sodium (Chloride) 250 mls @ 250 mls/hr IVPB Q24H [facility]; Protocol Last Admin: 05/17/18 15:00 Dose: 250 mls Imipenem/Cilastatin Sodium 500 (mg/ Sodium Chloride) 100 mls @ 100 mls/hr IVPB Q6H [facility]; Protocol Last Admin: 05/18/18 08:07 Dose: 100 mls/hr Sodium Chloride (Sodium Chloride 0.9%) 1,000 mls @ 125 mls/hr IV .Q8H [facility] Last Admin: 05/18/18 08:52 Dose: 125 mls/hr Magnesium Sulfate/Dextrose (Magnesium Sulfate 1 Gm/100 Ml D5w) 1 gm in 100 mls @ 200 mls/hr IVPB ONCE ONE Stop: 05/18/18 10:55 Insulin Aspart (Novolog) 0 unit SC Q6H [facility]; Protocol Last Admin: 05/18/18 07:05 Dose: 1 units Ondansetron HCl (Zofran Inj) 4 mg IVP Q4H PRN PRN Reason: Nausea/Vomiting Last Admin: 05/17/18 04:19 Dose: 4 mg Pantoprazole Sodium (Protonix Inj) 40 mg IVP DAILY [facility] Last Admin: 05/18/18 09:31 Dose: 40 mg - Labs Labs: 05/18/18 06:17 05/18/18 06:17 PT 14.8 SECONDS (9.7-12.2) H 05/17/18 06:32 INR 1.4 05/17/18 06:32 APTT 28 SECONDS (21-34) 05/17/18 06:32 - Head Exam Head Exam: ATRAUMATIC, NORMAL INSPECTION, NORMOCEPHALIC - Cardiovascular Exam Cardiovascular Exam: REGULAR RHYTHM, +S1, +S2 - GI/Abdominal Exam GI & Abdominal Exam: Normal Bowel Sounds Additional comments: (+)drain - Back Exam Back Exam: NORMAL INSPECTION - Neurological Exam Neurological Exam: Alert, Awake - Skin Skin Exam: Normal Color, Warm Assessment and Plan - Assessment and Plan (Free Text) Assessment: POD #1: -ATN: avoid acei: continue IV hydration, lactic normal, avoid nephrotoxic drugs -empirically on abx, continue to monitor urine output -continue to monitor patient -abdominal band -incentive spirometry -continue dvt/pud ppx -activity oob to chair -restart home medications when able to tolerate oral
--- NOTE | 2018-05-18 12:21 | RAD ---
Date of service: 05/18/2018 HISTORY: eval lungs/heart/hypoxia COMPARISON: 12/05/2014 FINDINGS: LUNGS: There are low lung volumes. There is confluent airspace disease in the left lung base. PLEURA: No pleural effusions or pneumothorax. CARDIOVASCULAR: The heart is normal in size. No aortic atherosclerotic calcification present. OSSEOUS STRUCTURES: Within normal limits for the patient's age. VISUALIZED UPPER ABDOMEN: Normal. OTHER FINDINGS: None. IMPRESSION: Low lung volumes may be related to poor inspiratory effort. Confluent airspace disease in the left lung base could represent atelectasis/pneumonia. Follow-up is advised.
--- NOTE | 2018-05-18 13:01 | CP.PCM.PN ---
Subjective - Date & Time of Evaluation Date of Evaluation: 05/18/18 Time of Evaluation: 12:59 - Subjective Subjective: po day 1.s/p colon or,tumor. Objective - Vital Signs/Intake and Output Vital Signs (last 24 hours): Temp Pulse Resp BP Pulse Ox 97.5 F L 101 H 17 94/49 L 97 05/17/18 19:55 05/18/18 07:01 05/18/18 07:01 05/18/18 09:18 05/18/18 07:01 Intake and Output: 05/18/18 05/18/18 06:59 18:59 Intake Total 1100 100 Output Total 660 60 Balance 440 40 - Medications Medications: Current Medications Albumin Human (Albumin Human 25% (12.5 Gm/50 Ml)) 25 gm IV Q6H [facility] Stop: 05/19/18 02:31 Last Admin: 05/18/18 08:57 Dose: 25 gm Carvedilol (Coreg) 25 mg PO BID [facility] Last Admin: 05/18/18 09:18 Dose: Not Given Clonidine HCl (Catapres) 0.1 mg PO BID [facility] Last Admin: 05/18/18 09:18 Dose: Not Given Clopidogrel Bisulfate (Plavix) 75 mg PO DAILY [facility] Last Admin: 05/18/18 11:36 Dose: 75 mg Heparin Sodium (Porcine) (Heparin) 5,000 units SC Q8 [facility] Last Admin: 05/18/18 06:29 Dose: 5,000 units Home Med (Patient's Own Drops) 1 drop OU BID [facility] Last Admin: 05/18/18 09:29 Dose: 1 drop Hydromorphone HCl (Dilaudid) 0.5 mg IVP Q4H PRN PRN Reason: Pain, moderate (4-7) Last Admin: 05/18/18 12:42 Dose: 0.5 mg Hydromorphone/Sodium Chloride (Dilaudid Soil Conservation Aide) 6 mg IV Q4H PRN; Protocol PRN Reason: Pain, moderate (4-7) Azithromycin 500 mg/ Sodium (Chloride) 250 mls @ 250 mls/hr IVPB Q24H [facility]; Protocol Last Admin: 05/17/18 15:00 Dose: 250 mls Imipenem/Cilastatin Sodium 500 (mg/ Sodium Chloride) 100 mls @ 100 mls/hr IVPB Q6H [facility]; Protocol Last Admin: 05/18/18 12:34 Dose: 100 mls/hr Sodium Chloride (Sodium Chloride 0.9%) 1,000 mls @ 125 mls/hr IV .Q8H [facility] Last Admin: 05/18/18 08:52 Dose: 125 mls/hr Insulin Aspart (Novolog) 0 unit SC Q6H [facility]; Protocol Last Admin: 05/18/18 12:31 Dose: Not Given Ondansetron HCl (Zofran Inj) 4 mg IVP Q4H PRN PRN Reason: Nausea/Vomiting Last Admin: 05/17/18 04:19 Dose: 4 mg Pantoprazole Sodium (Protonix Inj) 40 mg IVP DAILY [facility] Last Admin: 05/18/18 09:31 Dose: 40 mg - Labs Labs: 05/18/18 06:17 05/18/18 06:17 PT 14.8 SECONDS (9.7-12.2) H 05/17/18 06:32 INR 1.4 05/17/18 06:32 APTT 28 SECONDS (21-34) 05/17/18 06:32 - Constitutional Appears: No Acute Distress, Chronically Ill - Head Exam Head Exam: NORMOCEPHALIC - Neck Exam Neck Exam: Normal Inspection - Respiratory Exam Respiratory Exam: Decreased Breath Sounds - Cardiovascular Exam Cardiovascular Exam: REGULAR RHYTHM - GI/Abdominal Exam GI & Abdominal Exam: Soft - Extremities Exam Extremities Exam: Pedal Edema - Neurological Exam Neurological Exam: Alert, Oriented x3 Assessment and Plan - Assessment and Plan (Free Text) Plan: s/p colon or.stable hemodynamicaly.good urine output.
[2018-05-18] MEDS ORDERED: Sodium Chloride 0.9% 1,000 ML IV ONE (14:22)
--- NOTE | 2018-05-18 14:58 | CP.PCM.PN ---
Subjective - Date & Time of Evaluation Date of Evaluation: 05/18/18 Time of Evaluation: 14:00 - Subjective Subjective: patient seen and examined POD#1 s/p open LAR with colorectal anastomosis and incidental appendectomy. poor urine output Patient is awake and responsive Denies shortness of Breath Afebrile Objective - Vital Signs/Intake and Output Vital Signs (last 24 hours): Temp Pulse Resp BP Pulse Ox 97.5 F L 101 H 17 94/49 L 97 05/17/18 19:55 05/18/18 07:01 05/18/18 07:01 05/18/18 09:18 05/18/18 07:01 Intake and Output: 05/18/18 05/18/18 06:59 18:59 Intake Total 1100 100 Output Total 660 60 Balance 440 40 - Medications Medications: Current Medications Albumin Human (Albumin Human 25% (12.5 Gm/50 Ml)) 25 gm IV Q6H [facility] Stop: 05/19/18 02:31 Last Admin: 05/18/18 08:57 Dose: 25 gm Carvedilol (Coreg) 25 mg PO BID [facility] Last Admin: 05/18/18 09:18 Dose: Not Given Clonidine HCl (Catapres) 0.1 mg PO BID [facility] Last Admin: 05/18/18 09:18 Dose: Not Given Clopidogrel Bisulfate (Plavix) 75 mg PO DAILY [facility] Last Admin: 05/18/18 11:36 Dose: 75 mg Heparin Sodium (Porcine) (Heparin) 5,000 units SC Q8 [facility] Last Admin: 05/18/18 06:29 Dose: 5,000 units Home Med (Patient's Own Drops) 1 drop OU BID [facility] Last Admin: 05/18/18 09:29 Dose: 1 drop Hydromorphone HCl (Dilaudid) 0.5 mg IVP Q4H PRN PRN Reason: Pain, moderate (4-7) Last Admin: 05/18/18 12:42 Dose: 0.5 mg Hydromorphone/Sodium Chloride (Dilaudid Recapper) 6 mg IV Q4H PRN; Protocol PRN Reason: Pain, moderate (4-7) Azithromycin 500 mg/ Sodium (Chloride) 250 mls @ 250 mls/hr IVPB Q24H [facility]; Protocol Last Admin: 05/17/18 15:00 Dose: 250 mls Imipenem/Cilastatin Sodium 500 (mg/ Sodium Chloride) 100 mls @ 100 mls/hr IVPB Q6H [facility]; Protocol Last Admin: 05/18/18 12:34 Dose: 100 mls/hr Sodium Chloride (Sodium Chloride 0.9%) 1,000 mls @ 1,000 mls/hr IV .Q1H [facility] Stop: 05/18/18 15:21 Sodium Chloride (Sodium Chloride 0.9%) 1,000 mls @ 150 mls/hr IV .Q6H40M [facility] Insulin Aspart (Novolog) 0 unit SC Q6H [facility]; Protocol Last Admin: 05/18/18 12:31 Dose: Not Given Ondansetron HCl (Zofran Inj) 4 mg IVP Q4H PRN PRN Reason: Nausea/Vomiting Last Admin: 05/17/18 04:19 Dose: 4 mg Pantoprazole Sodium (Protonix Inj) 40 mg IVP DAILY [facility] Last Admin: 05/18/18 09:31 Dose: 40 mg - Labs Labs: 05/18/18 06:17 05/18/18 06:17 PT 14.8 SECONDS (9.7-12.2) H 05/17/18 06:32 INR 1.4 05/17/18 06:32 APTT 28 SECONDS (21-34) 05/17/18 06:32 - Head Exam Head Exam: ATRAUMATIC, NORMOCEPHALIC - ENT Exam ENT Exam: Mucous Membranes Moist - Neck Exam Neck Exam: Normal Inspection - Respiratory Exam Respiratory Exam: Decreased Breath Sounds - Cardiovascular Exam Cardiovascular Exam: REGULAR RHYTHM Assessment and Plan (1) Pneumonia Assessment & Plan: on antibiotics Followup chest x-ray Status: Acute (2) SBO (small bowel obstruction) Assessment & Plan: 77F POD#1 s/p open LAR with colorectal anastomosis and incidental appendectomy. IV fluids Analgesics Intake and output Status: Acute
--- NOTE | 2018-05-18 15:54 | CP.PCM.PN ---
Subjective - Date & Time of Evaluation Date of Evaluation: 05/18/18 Time of Evaluation: 15:52 - Subjective Subjective: covering Dr Abdi. F/u SBO, colon mass s/p surgery No Rb, melena, hematuria, hemoptysis, TORRES, cough Objective - Vital Signs/Intake and Output Vital Signs (last 24 hours): Temp Pulse Resp BP Pulse Ox 97.5 F L 101 H 17 94/49 L 97 05/17/18 19:55 05/18/18 07:01 05/18/18 07:01 05/18/18 09:18 05/18/18 07:01 Intake and Output: 05/18/18 05/18/18 06:59 18:59 Intake Total 1100 100 Output Total 660 60 Balance 440 40 - Medications Medications: Current Medications Albumin Human (Albumin Human 25% (12.5 Gm/50 Ml)) 25 gm IV Q6H [facility] Stop: 05/19/18 02:31 Last Admin: 05/18/18 15:15 Dose: 25 gm Carvedilol (Coreg) 25 mg PO BID [facility] Last Admin: 05/18/18 09:18 Dose: Not Given Clonidine HCl (Catapres) 0.1 mg PO BID [facility] Last Admin: 05/18/18 09:18 Dose: Not Given Clopidogrel Bisulfate (Plavix) 75 mg PO DAILY [facility] Last Admin: 05/18/18 11:36 Dose: 75 mg Heparin Sodium (Porcine) (Heparin) 5,000 units SC Q8 [facility] Last Admin: 05/18/18 15:15 Dose: 5,000 units Home Med (Patient's Own Drops) 1 drop OU BID [facility] Last Admin: 05/18/18 09:29 Dose: 1 drop Hydromorphone HCl (Dilaudid) 0.5 mg IVP Q4H PRN PRN Reason: Pain, moderate (4-7) Last Admin: 05/18/18 12:42 Dose: 0.5 mg Hydromorphone/Sodium Chloride (Dilaudid Linseed Oil Press Tender) 6 mg IV Q4H PRN; Protocol PRN Reason: Pain, moderate (4-7) Azithromycin 500 mg/ Sodium (Chloride) 250 mls @ 250 mls/hr IVPB Q24H [facility]; Prot ocol Last Admin: 05/17/18 15:00 Dose: 250 mls Imipenem/Cilastatin Sodium 500 (mg/ Sodium Chloride) 100 mls @ 100 mls/hr IVPB Q6H [facility]; Protocol Last Admin: 05/18/18 12:34 Dose: 100 mls/hr Sodium Chloride (Sodium Chloride 0.9%) 1,000 mls @ 150 mls/hr IV .Q6H40M [facility] Last Admin: 05/18/18 15:16 Dose: 150 mls/hr Insulin Aspart (Novolog) 0 unit SC Q6H [facility]; Protocol Last Admin: 05/18/18 12:31 Dose: Not Given Ondansetron HCl (Zofran Inj) 4 mg IVP Q4H PRN PRN Reason: Nausea/Vomiting Last Admin: 05/17/18 04:19 Dose: 4 mg Pantoprazole Sodium (Protonix Inj) 40 mg IVP DAILY [facility] Last Admin: 05/18/18 09:31 Dose: 40 mg - Labs Labs: 05/18/18 06:17 05/18/18 06:17 PT 14.8 SECONDS (9.7-12.2) H 05/17/18 06:32 INR 1.4 05/17/18 06:32 APTT 28 SECONDS (21-34) 05/17/18 06:32 - Respiratory Exam Respiratory Exam: Clear to Ausculation Bilateral - Cardiovascular Exam Cardiovascular Exam: RRR - GI/Abdominal Exam GI & Abdominal Exam: Soft, Tenderness. absent: Normal Bowel Sounds - Neurological Exam Neurological Exam: absent: Oriented x3 Assessment and Plan (1) Colon tumor Assessment & Plan: s.p surg/ Check CBC Status: Acute (2) Pneumonia Status: Acute (3) SBO (small bowel obstruction) Status: Acute (4) CHF (congestive heart failure) Status: Acute (5) Hypertension Status: Acute
[2018-05-18] MEDS: Sodium Chloride 0.9% 1,000 ML IV SCH (20:29)
[2018-05-18 21:10] LABS: SQUAMOUS EPITHIAL < 1 /hpf (0-5); URINE BACTERIA MOD (<OCC); URINE BILIRUBIN 1+ (NEGATIVE); URINE BLOOD 2+ (NEGATIVE); URINE CLARITY Clear (Clear); URINE COLOR Yellow (YELLOW); URINE GLUCOSE (UA) 1+ mg/dL (Normal); URINE LEUKOCYTE ESTERASE TRACE Leu/uL (Negative); URINE PROTEIN NEGATIVE (NEGATIVE)
--- NOTE | 2018-05-18 21:50 | CP.PCM.PN ---
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 IN ICU CONTINUE PRIMAXIN, FOLLOW FOR ACUTE POST OP CHANGES AND SIGN OF LOCAL PERITINITIS VS SEPSIS WILL FOLLOW MEDICALLY NEEDED CONSIDER REPEAT CAT SCAN IF WARRENTED, ESPECIALLY IF ABSCESS OR CONTINUED SEPSIS IS CONCERNING. Objective - Vital Signs/Intake and Output Vital Signs (last 24 hours): Temp Pulse Resp BP Pulse Ox 98.0 F 111 H 24 129/69 94 L 05/18/18 16:00 05/18/18 20:01 05/18/18 20:01 05/18/18 20:01 05/18/18 20:01 Intake and Output: 05/18/18 05/19/18 18:59 06:59 Intake Total 3625 300 Output Total 170 40 Balance 3455 260 - Medications Medications: Current Medications Albumin Human (Albumin Human 25% (12.5 Gm/50 Ml)) 25 gm IV Q6H [facility] Stop: 05/19/18 02:31 Last Admin: 05/18/18 15:15 Dose: 25 gm Carvedilol (Coreg) 25 mg PO BID [facility] Last Admin: 05/18/18 17:30 Dose: 25 mg Clopidogrel Bisulfate (Plavix) 75 mg PO DAILY [facility] Last Admin: 05/18/18 11:36 Dose: 75 mg Heparin Sodium (Porcine) (Heparin) 5,000 units SC Q8 [facility] Last Admin: 05/18/18 15:15 Dose: 5,000 units Home Med (Patient's Own Drops) 1 drop OU BID [facility] Last Admin: 05/18/18 17:32 Dose: 1 drop Hydromorphone HCl (Dilaudid) 0.5 mg IVP Q4H PRN PRN Reason: Pain, moderate (4-7) Last Admin: 05/18/18 19:35 Dose: 0.5 mg Hydromorphone/Sodium Chloride (Dilaudid Yarn Man) 6 mg IV Q4H PRN; Protocol PRN Reason: Pain, moderate (4-7) Imipenem/Cilastatin Sodium 500 (mg/ Sodium Chloride) 100 mls @ 100 mls/hr IVPB Q6H [facility]; Protocol Last Admin: 05/18/18 20:25 Dose: 100 mls/hr Sodium Bicarbonate 75 meq/ (Sodium Chloride) 1,075 mls @ 75 mls/hr IV .[id number] [facility] Sodium Chloride (Sodium Chloride 0.9%) 1,000 mls @ 75 mls/hr IV .[id number] [facility] Last Admin: 05/18/18 20:29 Dose: 75 mls/hr Insulin Aspart (Novolog) 0 unit SC Q6H [facility]; Protocol Last Admin: 05/18/18 17:43 Dose: Not Given Ondansetron HCl (Zofran Inj) 4 mg IVP Q4H PRN PRN Reason: Nausea/Vomiting Last Admin: 05/17/18 04:19 Dose: 4 mg Pantoprazole Sodium (Protonix Inj) 40 mg IVP DAILY [facility] Last Admin: 05/18/18 09:31 Dose: 40 mg - Labs Labs: 05/18/18 06:17 05/18/18 06:17 PT 14.8 SECONDS (9.7-12.2) H 05/17/18 06:32 INR 1.4 05/17/18 06:32 APTT 28 SECONDS (21-34) 05/17/18 06:32
[2018-05-18] MEDS ORDERED: IMIPENEM IVPB SCH (21:55)
[2018-05-18] MEDS ORDERED: SODIUM CHLORIDE 0.9% IVPB SCH (21:55)
[2018-05-18] MEDS ORDERED: CILASTATIN IVPB SCH (21:55)
--- NOTE | 2018-05-18 22:10 | CP.PCM.PN ---
Subjective - Date & Time of Evaluation Date of Evaluation: 05/18/18 Time of Evaluation: 22:04 - Subjective Subjective: INFECTIOUS DISEASE PROGRESS NOTE POOJA CAREY MD, FACP 05/18/2018 CASE DISCUSSED WITH RN-WHO NOTIFIED ME OF RECENT CBC AND NEWLY AVAILABLE DIFF WITH [facility] LABS AND CLINICAL FINDINGS WITH RN THIS EVENING, VSS! REPEAT BLOOD C/S X 2-FOR AM, WITH URINALYSIS AND C/S CLINICALLY I ALSO INCREASED HER PRIMAXIN TO 1GM IVPB Q 6 HOURS, AND D/ASHLEY ZITHROMAX SEE ORDERS PLEASE FEEL FREE TO INTERACT WITH ME MEDICALLY DEEMED APPROPIATE. POOJA CAREY MD, FACP Objective - Vital Signs/Intake and Output Vital Signs (last 24 hours): Temp Pulse Resp BP Pulse Ox 98.0 F 111 H 24 129/69 94 L 05/18/18 16:00 05/18/18 20:01 05/18/18 20:01 05/18/18 20:01 05/18/18 20:01 Intake and Output: 05/18/18 05/19/18 18:59 06:59 Intake Total 3625 300 Output Total 170 40 Balance 3455 260 - Medications Medications: Current Medications Albumin Human (Albumin Human 25% (12.5 Gm/50 Ml)) 25 gm IV Q6H [facility] Stop: 05/19/18 02:31 Last Admin: 05/18/18 15:15 Dose: 25 gm Carvedilol (Coreg) 25 mg PO BID [facility] Last Admin: 05/18/18 17:30 Dose: 25 mg Clopidogrel Bisulfate (Plavix) 75 mg PO DAILY [facility] Last Admin: 05/18/18 11:36 Dose: 75 mg Heparin Sodium (Porcine) (Heparin) 5,000 units SC Q8 [facility] Last Admin: 05/18/18 15:15 Dose: 5,000 units Home Med (Patient's Own Drops) 1 drop OU BID [facility] Last Admin: 05/18/18 17:32 Dose: 1 drop Hydromorphone HCl (Dilaudid) 0.5 mg IVP Q4H PRN PRN Reason: Pain, moderate (4-7) Last Admin: 05/18/18 19:35 Dose: 0.5 mg Hydromorphone/Sodium Chloride (Dilaudid Acoustic Intelligence Specialist) 6 mg IV Q4H PRN; Protocol PRN Reason: Pain, moderate (4-7) Last Admin: 05/18/18 22:02 Dose: 6 mg Sodium Bicarbonate 75 meq/ (Sodium Chloride) 1,075 mls @ 75 mls/hr IV .[id number] [facility] Sodium Chloride (Sodium Chloride 0.9%) 1,000 mls @ 75 mls/hr IV .[id number] [facility] Last Admin: 05/18/18 20:29 Dose: 75 mls/hr Imipenem/Cilastatin Sodium 1, (000 mg/ Sodium Chloride) 250 mls @ 166.667 mls/hr IVPB Q6H [facility]; Protocol Insulin Aspart (Novolog) 0 unit SC Q6H [facility]; Protocol Last Admin: 05/18/18 17:43 Dose: Not Given Ondansetron HCl (Zofran Inj) 4 mg IVP Q4H PRN PRN Reason: Nausea/Vomiting Last Admin: 05/17/18 04:19 Dose: 4 mg Pantoprazole Sodium (Protonix Inj) 40 mg IVP DAILY [facility] Last Admin: 05/18/18 09:31 Dose: 40 mg - Labs Labs: 05/18/18 06:17 05/18/18 06:17 PT 14.8 SECONDS (9.7-12.2) H 05/17/18 06:32 INR 1.4 05/17/18 06:32 APTT 28 SECONDS (21-34) 05/17/18 06:32
[2018-05-19] MEDS: Albumin Human 25% (12.5 gm/50 ml) IV SCH (02:56)
[2018-05-19] MEDS: HYDROmorphone 0.5 mg/0.5 ml ISec IVP PRN (04:42)
[2018-05-19] MEDS: (Novolog) Insulin Aspart, Recombinant 100 u/ml 10 ml vial SC SCH ×4 (06:00→18:18)
[2018-05-19] MEDS: Sodium Chloride 0.9% 1,000 ML IV SCH ×2 (06:40→09:00)
[2018-05-19 07:40] LABS: BASO % 0.1 % (0.0-2.0); LYMPH # 0.9 K/uL (1.0-4.3); LYMPH % 6.6 % (20.0-40.0); MEAN CELL VOLUME 80.3 fL (81.0-99.0); MEAN CORPUSCULAR HEMOGLOBIN 26.3 pg (27.0-31.0); MEAN CORPUSCULAR HGB CONC 32.7 g/dL (33.0-37.0); MEAN PLATELET VOLUME 9.8 fL (7.2-11.7); MONO # 0.8 K/uL (0.0-0.8); MONO % 5.7 % (0.0-10.0); NEUT # 11.7 K/uL (1.8-7.0); NEUT % 87.6 % (50.0-75.0); RBC 3.26 Mil/uL (3.80-5.20); RED CELL DISTRIBUTION WIDTH 16.8 % (11.5-14.5); WHITE BLOOD COUNT 13.4 K/uL (4.8-10.8)
--- NOTE | 2018-05-19 07:46 | CP.PCM.PN ---
Subjective - Date & Time of Evaluation Date of Evaluation: 05/19/18 Time of Evaluation: 07:43 - Subjective Subjective: Surgery: Dr. Dobbs Pt seen and examined. No acute overnight events. Pt states she feels better this AM, abdominal pain is well controlled and she denies nausea/vomiting. Pt denies flatus or BM. States she was able to sit up at the edge of the bed yesterday but hasn't been out of bed. No other complaints at this time. Objective - Vital Signs/Intake and Output Vital Signs (last 24 hours): Temp Pulse Resp BP Pulse Ox 98.0 F 111 H 24 129/69 94 L 05/18/18 16:00 05/18/18 20:01 05/18/18 20:01 05/18/18 20:01 05/18/18 20:01 Intake and Output: 05/19/18 05/19/18 06:59 18:59 Intake Total 300 Output Total 40 Balance 260 - Medications Medications: Current Medications Carvedilol (Coreg) 25 mg PO BID [facility] Last Admin: 05/18/18 17:30 Dose: 25 mg Clopidogrel Bisulfate (Plavix) 75 mg PO DAILY [facility] Last Admin: 05/18/18 11:36 Dose: 75 mg Heparin Sodium (Porcine) (Heparin) 5,000 units SC Q8 [facility] Last Admin: 05/19/18 06:39 Dose: 5,000 units Home Med (Patient's Own Drops) 1 drop OU BID [facility] Last Admin: 05/18/18 17:32 Dose: 1 drop Hydromorphone HCl (Dilaudid) 0.5 mg IVP Q4H PRN PRN Reason: Pain, moderate (4-7) Last Admin: 05/19/18 04:42 Dose: 0.5 mg Hydromorphone/Sodium Chloride (Dilaudid Cna Ltc) 6 mg IV Q4H PRN; Protocol PRN Reason: Pain, moderate (4-7) Last Admin: 05/18/18 22:02 Dose: 6 mg Sodium Bicarbonate 75 meq/ (Sodium Chloride) 1,075 mls @ 75 mls/hr IV .[id number] [facility] Last Admin: 05/19/18 06:40 Dose: 75 mls/hr Sodium Chloride (Sodium Chloride 0.9%) 1,000 mls @ 75 mls/hr IV .[id number] [facility] Last Admin: 05/19/18 06:40 Dose: 75 mls/hr Imipenem/Cilastatin Sodium 1, (000 mg/ Sodium Chloride) 250 mls @ 166.667 mls/hr IVPB Q6H [facility]; Protocol Last Admin: 05/19/18 06:40 Dose: 166.667 mls/hr Insulin Aspart (Novolog) 0 unit SC Q6H [facility]; Protocol Last Admin: 05/19/18 06:00 Dose: Not Given Ondansetron HCl (Zofran Inj) 4 mg IVP Q4H PRN PRN Reason: Nausea/Vomiting Last Admin: 05/17/18 04:19 Dose: 4 mg Pantoprazole Sodium (Protonix Inj) 40 mg IVP DAILY [facility] Last Admin: 05/18/18 09:31 Dose: 40 mg - Labs Labs: 05/18/18 06:17 05/18/18 06:17 PT 14.8 SECONDS (9.7-12.2) H 05/17/18 06:32 INR 1.4 05/17/18 06:32 APTT 28 SECONDS (21-34) 05/17/18 06:32 - Constitutional Appears: Well, No Acute Distress - Head Exam Head Exam: ATRAUMATIC, NORMOCEPHALIC - Eye Exam Eye Exam: Normal appearance - ENT Exam ENT Exam: Mucous Membranes Moist - Respiratory Exam Respiratory Exam: NORMAL BREATHING PATTERN - Cardiovascular Exam Cardiovascular Exam: Tachycardia, RRR - GI/Abdominal Exam GI & Abdominal Exam: Soft, Tenderness (around midline incision ). absent: Distended, Rebound Additional comments: amalia drain in place with serosang output - Neurological Exam Neurological Exam: Alert, Awake, Oriented x3 - Skin Skin Exam: Dry, Warm Assessment and Plan - Assessment and Plan (Free Text) Assessment: 77F s/p LAR with primary anastomosis & appendectomy for necrotic sigmoid mass; POD#2 Plan: - keep NPO for now as pt continues to have no signs of bowel function - will slowly advance diet as tolerated - monitor UOP - encourage out of bed to chair & ambulation - pain management - d/w Dr. Dilia Roldan
[2018-05-19 07:52] LABS: HEMOGLOBIN 8.6 g/dL (11.0-16.0)
[2018-05-19 07:53] LABS: PLATELET COUNT 219 K/uL (130-400)
[2018-05-19 08:14] LABS: ALB/GLOB RATIO 1.6 (1.0-2.1); ALBUMIN 3.5 g/dL (3.5-5.0); CALCIUM 8.1 mg/dl (8.6-10.4)
[2018-05-19 08:46] LABS: BASO % 0.1 % (0.0-2.0); HEMOGLOBIN 8.4 g/dL (11.0-16.0); LYMPH # 0.6 K/uL (1.0-4.3); MEAN CELL VOLUME 80.3 fL (81.0-99.0); MEAN CORPUSCULAR HEMOGLOBIN 26.1 pg (27.0-31.0); MEAN CORPUSCULAR HGB CONC 32.6 g/dL (33.0-37.0); MEAN PLATELET VOLUME 8.8 fL (7.2-11.7); MONO # 0.7 K/uL (0.0-0.8); NEUT # 11.2 K/uL (1.8-7.0); NEUT % 88.9 % (50.0-75.0); RBC 3.22 Mil/uL (3.80-5.20); RED CELL DISTRIBUTION WIDTH 16.6 % (11.5-14.5); WHITE BLOOD COUNT 12.5 K/uL (4.8-10.8)
[2018-05-19 09:00] LABS: BANDS 11 % (0-2); LYMPHOCYTE 5 % (20-40); MONOCYTE 5 % (0-10); NEUTROPHIL 79 % (50-75); NUCLEATED RED BLOOD CELL 1 % (0-0); TOTAL CELLS COUNTED 100
[2018-05-19 09:01] LABS: ANISOCYTOSIS SLIGHT; MICROCYTOSIS SLIGHT; PLATELET ESTIMATE NORMAL (NORMAL); POIKILOCYTOSIS SLIGHT
[2018-05-19 09:02] LABS: BURR CELLS SLIGHT; OVALOCYTES SLIGHT; POLYCHROMIC SLIGHT; TOXIC GRANULATION PRESENT
[2018-05-19 09:03] LABS: ALB/GLOB RATIO 1.6 (1.0-2.1); ALBUMIN 3.4 g/dL (3.5-5.0); CALCIUM 7.9 mg/dl (8.6-10.4)
[2018-05-19 09:04] LABS: HYPOCHROMIC MODERATE; LARGE PLATELETS PRESENT
[2018-05-19 09:07] LABS: SCHISTOCYTES SLIGHT
[2018-05-19] MEDS: Potassium Chloride 20 mEq ER Tab PO SCH (10:08)
[2018-05-19] MEDS: TIMOLOL MALEATE OU SCH ×2 (10:09→18:18)
[2018-05-19] MEDS: DORZOLAMIDE HCL OU SCH ×2 (10:09→18:18)
[2018-05-19] MEDS: Magnesium Sulfate 1 gm in D5W 1 GM/100 ML BAG IVPB SCH ×2 (10:15→10:30)
--- NOTE | 2018-05-19 10:28 | CP.PCM.CON ---
History of Present Illness - History of Present Illness History of Present Illness: RENAL CONSULT 77F with a PMH of HTN, DM, and CHF that presented to ER w/ SBO and was found to have a rectal mass. SHe underwent surgery and is in the ICU postoperatively. Her course has been complicated by BREANN post operatively. SHe is nonoliguric. She has no hx of BREANN/CKD in the past. SHe denies n/v. She endorses reduced po intake. Her pain is reasonably controlled. She did received preoperatively a CT w/ IV contrast on 05/16. No documented hypotension - though not clear if any episodes during OR. ROS: a full detailed ROS is negative except as in my hpi PMH: DM, HTN, CHF ALL: Tylenol, ASA, Clinda, PCN famhx: no esrd sochx: no active smoke etoh or ivdu pe: vs as below gen: nad sclera: anicteric op: clear neck: supple no thyromegaly cv: +S1+s2 no rub abd: binder in place no appreciable thyromegaly lungs: reduced bs at bases ext: trace edema neuro: a+ox3 no focal defecit psych: flat skin no rash labs and imaging reviewed imp: ARF/ Colon mass/ ANemia / hypokalemia/ hypomagnesemia plan: doubling of cr - though today mildly improved avoid hypotension continue supportive measures replete K - recc recheck bmp in mid afternoon to see if needs further repletion replete mag as well f/u path on colon mass transfusions per primary team Past Patient History - Past Medical History & Family History Past Medical History?: Yes - Past Social History Smoking Status: Former Smoker - CARDIAC Hx Congestive Heart Failure: Yes Hx Hypertension: Yes - PULMONARY Hx Chronic Obstructive Pulmonary Disease (COPD): Yes - HEENT Hx Glaucoma: Yes - INTEGUMENTARY Hx Cellulitis: Yes (bilateral lower extremeties) - MUSCULOSKELETAL/RHEUMATOLOGICAL Hx Falls: Yes Hx Unsteady Gait: Yes - PSYCHIATRIC Hx Substance Use: No - SURGICAL HISTORY Hx Surgeries: No - ANESTHESIA Hx Anesthesia: No Hx Anesthesia Reactions: No Hx Malignant Hyperthermia: No Meds Allergies/Adverse Reactions: Allergies Allergy/AdvReac Type Severity Reaction Status Date / Time acetaminophen [From Tylenol] Allergy Verified 05/14/18 18:58 aspirin Allergy Verified 05/14/18 18:58 clindamycin Allergy Verified 12/04/18 18:58 Penicillins Allergy Verified 05/14/18 18:58 Sulfa (Sulfonamide Allergy Verified 05/14/18 18:58 Antibiotics) - Medications Medications: Current Medications Carvedilol (Coreg) 25 mg PO BID [facility] Last Admin: 05/19/18 10:08 Dose: 25 mg Clopidogrel Bisulfate (Plavix) 75 mg PO DAILY [facility] Last Admin: 05/19/18 10:09 Dose: 75 mg Heparin Sodium (Porcine) (Heparin) 5,000 units SC Q8 [facility] Last Admin: 05/19/18 06:39 Dose: 5,000 units Home Med (Patient's Own Drops) 1 drop OU BID [facility] Last Admin: 05/19/18 10:09 Dose: 1 drop Hydromorphone HCl (Dilaudid) 0.5 mg IVP Q4H PRN PRN Reason: Pain, moderate (4-7) Last Admin: 05/19/18 04:42 Dose: 0.5 mg Hydromorphone/Sodium Chloride (Dilaudid [employer]) 6 mg IV Q4H PRN; Protocol PRN Reason: Pain, moderate (4-7) Last Admin: 05/18/18 22:02 Dose: 6 mg Imipenem/Cilastatin Sodium 1, (000 mg/ Sodium Chloride) 250 mls @ 166.667 mls/hr IVPB Q6H [facility]; Protocol Last Admin: 05/19/18 06:40 Dose: 166.667 mls/hr Potassium Chloride (Potassium Chloride 20 Meq/100 Ml) 20 meq in 100 mls @ 50 mls/hr IVPB ONCE ONE Stop: 05/19/18 11:14 Last Admin: 05/19/18 10:00 Dose: 50 mls/hr Potassium Chloride (Potassium Chloride 20 Meq/100 Ml) 20 meq in 100 mls @ 50 mls/hr IVPB ONCE ONE Stop: 05/19/18 13:14 Magnesium Sulfate/Dextrose (Magnesium Sulfate 1 Gm/100 Ml D5w) 1 gm in 100 mls @ 300 mls/hr IVPB Q30M [facility] Stop: 05/19/18 11:04 Potassium Chloride 40 meq/ (Sodium Chloride) 1,020 mls @ 200 mls/hr IV .Q5H6M [facility] Insulin Aspart (Novolog) 0 unit SC Q6H [facility]; Protocol Last Admin: 05/19/18 06:00 Dose: Not Given Ondansetron HCl (Zofran Inj) 4 mg IVP Q4H PRN PRN Reason: Nausea/Vomiting Last Admin: 05/17/18 04:19 Dose: 4 mg Pantoprazole Sodium (Protonix Inj) 40 mg IVP DAILY [facility] Last Admin: 05/19/18 10:08 Dose: 40 mg Potassium Chloride (K-Dur 20 Meq Er Tab) 20 meq PO DAILY [facility] Last Admin: 05/19/18 10:08 Dose: 20 meq Results - Vital Signs Recent Vital Signs: Last Vital Signs Temp 98.4 F 05/19/18 08:00 Pulse 93 H 05/19/18 09:02 Resp 16 05/19/18 09:02 BP 112/58 L 05/19/18 10:08 Pulse Ox 95 05/19/18 09:02 - Labs Result Diagrams: 05/19/18 08:38 05/19/18 08:38 Labs: Laboratory Results - last 24 hr 05/18/18 05/18/18 05/18/18 07:01 11:06 11:21 WBC RBC Hgb Hct MCV MCH MCHC RDW Plt Count MPV Neut % (Auto) Lymph % (Auto) Peach % (Auto) Eos % (Auto) Baso % (Auto) Neut # (Auto) Lymph # (Auto) Peach # (Auto) Eos # (Auto) Baso # (Auto) Neutrophils % (Manual) Band Neutrophils % Lymphocytes % (Manual) Monocytes % (Manual) Nucleated RBC % Toxic Granulation Platelet Estimate Large Platelets Polychromasia Hypochromasia (manual) Poikilocytosis (manual Anisocytosis (manual) Microcytosis (manual) Ovalocytes [place] Cells Schistocytes Sodium Potassium Chloride Carbon Dioxide Anion Gap BUN Creatinine Est GFR ( Amer) Est GFR (Non-Af Amer) POC Glucose (mg/dL) 151 H 141 H Random Glucose Calcium Phosphorus Magnesium Total Bilirubin AST ALT Alkaline Phosphatase NT-Pro-B Natriuret Pep 3100 H Total Protein Albumin Globulin Albumin/Globulin Ratio Urine Color Urine Clarity Urine pH Ur Specific [place] Urine Protein Urine Glucose (UA) Urine Ketones Urine Blood Urine Nitrate Urine Bilirubin Urine Urobilinogen Ur Leukocyte Esterase Urine WBC (Auto) Urine RBC (Auto) Ur Squamous Epith Cells Urine Bacteria 05/18/18 05/18/18 05/18/18 17:06 20:08 23:56 WBC RBC Hgb Hct MCV MCH MCHC RDW Plt Count MPV Neut % (Auto) Lymph % (Auto) Peach % (Auto) Eos % (Auto) Baso % (Auto) Neut # (Auto) Lymph # (Auto) Pe[place] # (Auto) Eos # (Auto) Baso # (Auto) Neutrophils % (Manual) Band Neutrophils % Lymphocytes % (Manual) Monocytes % (Manual) Nucleated RBC % Toxic Granulation Platelet Estimate Large Platelets Polychromasia Hypochromasia (manual) Poikilocytosis (manual Anisocytosis (manual) Microcytosis (manual) Ovalocytes [place] Cells Schistocytes Sodium Potassium Chloride Carbon Dioxide Anion Gap BUN Creatinine Est GFR ( Amer) Est GFR (Non-Af Amer) POC Glucose (mg/dL) 135 H 121 H Random Glucose Calcium Phosphorus Magnesium Total Bilirubin AST ALT Alkaline Phosphatase NT-Pro-B Natriuret Pep Total Protein Albumin Globulin Albumin/Globulin Ratio Urine Color Yellow Urine Clarity Clear Urine pH 5.0 Ur Specific [place] 1.005 Urine Protein Negative Urine Glucose (UA) 1+ Urine Ketones Trace Urine Blood 2+ H Urine Nitrate Negative Urine Bilirubin 1+ H Urine Urobilinogen 4.0 H Ur Leukocyte Esterase Trace Urine WBC (Auto) 5 Urine RBC (Auto) 14 H Ur Squamous Epith Cells < 1 Urine Bacteria Mod H 05/19/18 05/19/18 05/19/18 05:30 07:32 07:32 WBC 13.4 H RBC 3.26 L Hgb 8.6 L D Hct 26.2 L MCV 80.3 L MCH 26.3 L MCHC 32.7 L RDW 16.8 H Plt Count 219 D MPV 9.8 Neut % (Auto) 87.6 H Lymph % (Auto) 6.6 L Peach % (Auto) 5.7 Eos % (Auto) 0.0 Baso % (Auto) 0.1 Neut # (Auto) 11.7 H Lymph # (Auto) 0.9 L Peach # (Auto) 0.8 Eos # (Auto) 0.0 Baso # (Auto) 0.0 Neutrophils % (Manual) 79 H Band Neutrophils % 11 H* Lymphocytes % (Manual) 5 L Monocytes % (Manual) 5 Nucleated RBC % 1 H Toxic Granulation Present Platelet Estimate Normal Large Platelets Present Polychromasia Slight Hypochromasia (manual) Moderate Poikilocytosis (manual Slight Anisocytosis (manual) Slight Microcytosis (manual) Slight Ovalocytes Slight [place] Cells Slight Schistocytes Slight Sodium 138 Potassium 2.4 L* D Chloride 94 L Carbon Dioxide 27 Anion Gap 19 BUN 14 Creatinine 1.5 H Est GFR ( Amer) 41 Est GFR (Non-Af Amer) 34 POC Glucose (mg/dL) 107 Random Glucose 99 Calcium 8.1 L Phosphorus 4.8 H Magnesium 1.5 L Total Bilirubin 1.2 AST 15 ALT 18 Alkaline Phosphatase 40 NT-Pro-B Natriuret Pep Total Protein 5.7 L Albumin 3.5 D Globulin 2.2 Albumin/Globulin Ratio 1.6 Urine Color Urine Clarity Urine pH Ur Specific [place] Urine Protein Urine Glucose (UA) Urine Ketones Urine Blood Urine Nitrate Urine Bilirubin Urine Urobilinogen Ur Leukocyte Esterase Urine WBC (Auto) Urine RBC (Auto) Ur Squamous Epith Cells Urine Bacteria 05/19/18 05/19/18 08:38 08:38 WBC 12.5 H RBC 3.22 L Hgb 8.4 L Hct 25.9 L MCV 80.3 L MCH 26.1 L MCHC 32.6 L RDW 16.6 H Plt Count 223 MPV 8.8 Neut % (Auto) 88.9 H Lymph % (Auto) 5.0 L Peach % (Auto) 6.0 Eos % (Auto) 0.0 Baso % (Auto) 0.1 Neut # (Auto) 11.2 H Lymph # (Auto) 0.6 L Peach # (Auto) 0.7 Eos # (Auto) 0.0 Baso # (Auto) 0.0 Neutrophils % (Manual) Band Neutrophils % Lymphocytes % (Manual) Monocytes % (Manual) Nucleated RBC % Toxic Granulation Platelet Estimate Large Platelets Polychromasia Hypochromasia (manual) Poikilocytosis (manual Anisocytosis (manual) Microcytosis (manual) Ovalocytes [place] Cells Schistocytes Sodium 137 Potassium 2.2 L* Chloride 95 L Carbon Dioxide 30 Anion Gap 14 BUN 14 Creatinine 1.3 H Est GFR ( Amer) 48 Est GFR (Non-Af Amer) 40 POC Glucose (mg/dL) Random Glucose 118 H Calcium 7.9 L Phosphorus 4.5 Magnesium 1.4 L Total Bilirubin 1.1 AST 14 ALT 20 Alkaline Phosphatase 43 NT-Pro-B Natriuret Pep Total Protein 5.5 L Albumin 3.4 L Globulin 2.1 L Albumin/Globulin Ratio 1.6 Urine Color Urine Clarity Urine pH Ur Specific [place] Urine Protein Urine Glucose (UA) Urine Ketones Urine Blood Urine Nitrate Urine Bilirubin Urine Urobilinogen Ur Leukocyte Esterase Urine WBC (Auto) Urine RBC (Auto) Ur Squamous Epith Cells Urine Bacteria
[2018-05-19] MEDS: Potassium Chloride 40 MEQ in Sodium Chloride 0.45% 1,000 ML IV SCH ×3 (10:45→23:20)
--- NOTE | 2018-05-19 11:24 | RAD ---
Date of service: 05/19/2018 HISTORY: Elevation in WBC COMPARISON: Twelve 18 FINDINGS: LUNGS: Again seen are low lung volumes. There is confluent airspace disease in the lung bases. PLEURA: No pleural effusions or pneumothorax. CARDIOVASCULAR: The heart is normal in size. No aortic atherosclerotic calcification present. OSSEOUS STRUCTURES: Within normal limits for the patient's age. VISUALIZED UPPER ABDOMEN: Normal. OTHER FINDINGS: None. IMPRESSION: Confluent airspace disease in the lung bases may represent aspiration pneumonia in the appropriate clinical setting. Clinical follow-up is advised. Low lung volumes may be related to poor inspiratory effort.
--- NOTE | 2018-05-19 11:28 | US ---
Date of service: 05/19/2018 HISTORY: r/o hydro COMPARISON: CT abdomen and pelvis from 05/14/2018. TECHNIQUE: Sonographic evaluation of the abdomen. FINDINGS: LIVER: Measures 14.3 cm. There is diffuse increased echogenicity of the liver parenchyma. No mass. No intrahepatic bile duct dilatation. GALLBLADDER: There are multiple gallstones. No wall thickening, pericholecystic fluid or positive sonographic Andres's sign. COMMON BILE DUCT: Measures 4.0 mm. No stones. No dilatation. PANCREAS: Unremarkable as visualized. No mass. No ductal dilatation. RIGHT KIDNEY: Measures 10.6cm. Normal echogenicity. No calculus, mass, or hydronephrosis. LEFT KIDNEY: Measures 10.2cm. Normal echogenicity. There is mild fullness in the collecting system. There is a 7 mm nonobstructing stone in the interpolar region. SPLEEN: Normal in size and contour. No mass. AORTA: No aneurysmal dilatation. IVC: Unremarkable. OTHER FINDINGS: None. IMPRESSION: 7 mm nonobstructing stone in the left interpolar region of the kidney. Mild fullness in the left collecting system. Cholelithiasis. Diffuse increased echogenicity in the liver may reflect hepatic steatosis however parenchymal infectious/ inflammatory etiologies cannot be entirely excluded. Clinical and laboratory correlation is advised.
--- NOTE | 2018-05-19 11:30 | CP.PCM.PN ---
Subjective - Date & Time of Evaluation Date of Evaluation: 05/19/18 Time of Evaluation: 11:28 - Subjective Subjective: f/u colon mass. Covering Dr Abdi Denies fever, chills, SZ, RB, CP, SOB, TORRES, tremor, hematuria Reports less abdom pain Objective - Vital Signs/Intake and Output Vital Signs (last 24 hours): Temp Pulse Resp BP Pulse Ox 98.4 F 93 H 16 112/58 L 95 05/19/18 08:00 05/19/18 09:02 05/19/18 09:02 05/19/18 10:08 05/19/18 09:02 Intake and Output: 05/19/18 05/19/18 06:59 18:59 Intake Total 2930 790 Output Total 4170 0 Balance -1240 790 - Medications Medications: Current Medications Carvedilol (Coreg) 25 mg PO BID [facility] Last Admin: 05/19/18 10:08 Dose: 25 mg Clopidogrel Bisulfate (Plavix) 75 mg PO DAILY [facility] Last Admin: 05/19/18 10:09 Dose: 75 mg Heparin Sodium (Porcine) (Heparin) 5,000 units SC Q8 [facility] Last Admin: 05/19/18 06:39 Dose: 5,000 units Home Med (Patient's Own Drops) 1 drop OU BID [facility] Last Admin: 05/19/18 10:09 Dose: 1 drop Hydromorphone HCl (Dilaudid) 0.5 mg IVP Q4H PRN PRN Reason: Pain, moderate (4-7) Last Admin: 05/19/18 04:42 Dose: 0.5 mg Hydromorphone/Sodium Chloride (Dilaudid Rn Recovery) 6 mg IV Q4H PRN; Protocol PRN Reason: Pain, moderate (4-7) Last Admin: 05/18/18 22:02 Dose: 6 mg Imipenem/Cilastatin Sodium 1, (000 mg/ Sodium Chloride) 250 mls @ 166.667 mls/hr IVPB Q6H [facility]; Protocol Last Admin: 05/19/18 06:40 Dose: 166.667 mls/hr Potassium Chloride (Potassium Chloride 20 Meq/100 Ml) 20 meq in 100 mls @ 50 mls/hr IVPB ONCE ONE Stop: 05/19/18 13:14 Last Admin: 05/19/18 10:35 Dose: 50 mls/hr Potassium Chloride 40 meq/ (Sodium Chloride) 1,020 mls @ 200 mls/hr IV .Q5H6M [facility] Insulin Aspart (Novolog) 0 unit SC Q6H [facility]; Protocol Last Admin: 05/19/18 06:00 Dose: Not Given Ondansetron HCl (Zofran Inj) 4 mg IVP Q4H PRN PRN Reason: Nausea/Vomiting Last Admin: 05/17/18 04:19 Dose: 4 mg Pantoprazole Sodium (Protonix Inj) 40 mg IVP DAILY [facility] Last Admin: 05/19/18 10:08 Dose: 40 mg Potassium Chloride (K-Dur 20 Meq Er Tab) 20 meq PO DAILY [facility] Last Admin: 05/19/18 10:08 Dose: 20 meq - Labs Labs: 05/19/18 08:38 05/19/18 08:38 PT 14.8 SECONDS (9.7-12.2) H 05/17/18 06:32 INR 1.4 05/17/18 06:32 APTT 28 SECONDS (21-34) 05/17/18 06:32 - Neck Exam Neck Exam: absent: Tenderness - Respiratory Exam Respiratory Exam: Clear to Ausculation Bilateral - Cardiovascular Exam Cardiovascular Exam: RRR - GI/Abdominal Exam GI & Abdominal Exam: Soft, Tenderness, Hypoactive Bowel Sounds. absent: Rebound - Neurological Exam Neurological Exam: Alert, Oriented x3 Assessment and Plan (1) Colon tumor Assessment & Plan: s/p surgery. Check path Status: Acute (2) Pneumonia Status: Acute (3) SBO (small bowel obstruction) Assessment & Plan: colon CA Status: Acute (4) CHF (congestive heart failure) Status: Acute (5) Hypertension Status: Acute (6) Anemia Status: Acute
--- NOTE | 2018-05-19 11:39 | CP.PCM.PN ---
Subjective - Date & Time of Evaluation Date of Evaluation: 05/19/18 Time of Evaluation: 11:32 - Subjective Subjective: No events, large amount of urine out put overnight about 200ml/hr, patient clinically dry, despite ivf, drop in hemoglobin and low electrolytes confirmed with repeat labs. Sinus arrhythmia noticed likely from low electrolytes. Objective - Vital Signs/Intake and Output Vital Signs (last 24 hours): Temp Pulse Resp BP Pulse Ox 98.4 F 93 H 16 112/58 L 95 05/19/18 08:00 05/19/18 09:02 05/19/18 09:02 05/19/18 10:08 05/19/18 09:02 Intake and Output: 05/19/18 05/19/18 06:59 18:59 Intake Total 2930 790 Output Total 4170 0 Balance -1240 790 - Medications Medications: Current Medications Carvedilol (Coreg) 25 mg PO BID [facility] Last Admin: 05/19/18 10:08 Dose: 25 mg Clopidogrel Bisulfate (Plavix) 75 mg PO DAILY [facility] Last Admin: 05/19/18 10:09 Dose: 75 mg Heparin Sodium (Porcine) (Heparin) 5,000 units SC Q8 [facility] Last Admin: 05/19/18 06:39 Dose: 5,000 units Home Med (Patient's Own Drops) 1 drop OU BID [facility] Last Admin: 05/19/18 10:09 Dose: 1 drop Hydromorphone HCl (Dilaudid) 0.5 mg IVP Q4H PRN PRN Reason: Pain, moderate (4-7) Last Admin: 05/19/18 04:42 Dose: 0.5 mg Hydromorphone/Sodium Chloride (Dilaudid [employer]) 6 mg IV Q4H PRN; Protocol PRN Reason: Pain, moderate (4-7) Last Admin: 05/18/18 22:02 Dose: 6 mg Imipenem/Cilastatin Sodium 1, (000 mg/ Sodium Chloride) 250 mls @ 166.667 mls/hr IVPB Q6H [facility]; Protocol Last Admin: 05/19/18 06:40 Dose: 166.667 mls/hr Potassium Chloride (Potassium Chloride 20 Meq/100 Ml) 20 meq in 100 mls @ 50 mls/hr IVPB ONCE ONE Stop: 05/19/18 13:14 Last Admin: 05/19/18 10:35 Dose: 50 mls/hr Potassium Chloride 40 meq/ (Sodium Chloride) 1,020 mls @ 200 mls/hr IV .Q5H6M [facility] Insulin Aspart (Novolog) 0 unit SC Q6H [facility]; Protocol Last Admin: 05/19/18 06:00 Dose: Not Given Ondansetron HCl (Zofran Inj) 4 mg IVP Q4H PRN PRN Reason: Nausea/Vomiting Last Admin: 05/17/18 04:19 Dose: 4 mg Pantoprazole Sodium (Protonix Inj) 40 mg IVP DAILY [facility] Last Admin: 05/19/18 10:08 Dose: 40 mg Potassium Chloride (K-Dur 20 Meq Er Tab) 20 meq PO DAILY [facility] Last Admin: 05/19/18 10:08 Dose: 20 meq - Labs Labs: 05/19/18 08:38 05/19/18 08:38 PT 14.8 SECONDS (9.7-12.2) H 05/17/18 06:32 INR 1.4 05/17/18 06:32 APTT 28 SECONDS (21-34) 05/17/18 06:32 - Additional Findings Additional findings: * HEENT JOSH * Neck supple * Chest clear * CVS irregular, but sinus on the tele * PA soft, tender but pain controlled with electric welder, bs absent * Ext no edema * Skin turgor low, clinically dry * Urine blue due to methlyne blue dye used * GANG RIDER awake slight disorientation sometimes due to electric welder * Assessment and Plan - Assessment and Plan (Free Text) Assessment: * S/p sigmoid mass resection with anastomosis * Drop in hemoglobin * hypokalemia * hypomagnesimia * above likely from urinary loss * Diuretic phase of initial obstruction * Clinically dry * Metabolic alkalosis Plan: * KCL replacement * IVF with KCL to be balanced with urinary output * replace mag * Abd/pelvis Ct without contrast * awaiting path report * Gi/dvt prophylaxis * d/w surgery team about drop in hemoglobin * Monitor labs, f/u replace * See orders for detail.
--- NOTE | 2018-05-19 12:37 | CT ---
Date of service: 05/19/2018 PROCEDURE: CT Abdomen and Pelvis with contrast HISTORY: drop in hemoglobin COMPARISON: 05/16/2018. TECHNIQUE: CT scan of the abdomen and pelvis was performed without administration of intravenous contrast. Oral contrast was not administered. Coronal and sagittal reformatted images were obtained. Contrast dose: Radiation dose: Total exam DLP = 663.47 mGy-cm. This CT exam was performed using one or more of the following dose reduction techniques: Automated exposure control, adjustment of the mA and/or kV according to patient size, and/or use of iterative reconstruction technique. FINDINGS: LOWER THORAX: There is confluent airspace disease in the left lower lobe and subsegmental atelectasis in the right lower lobe. Small effusions, larger on the right. LIVER: Normal in size. No gross lesion or ductal dilatation. GALLBLADDER AND BILE DUCTS: There are multiple calcified gallstones. PANCREAS: Normal in size. No gross lesion or ductal dilatation. SPLEEN: Mild splenomegaly. ADRENALS: No discrete nodule. KIDNEYS AND URETERS: Normal in size. Mild fullness in both collecting system. VASCULATURE: No aortic aneurysm. BOWEL: Evaluation of the bowel is limited in the absence of oral contrast. Mildly dilated the small bowel loops in the left abdomen with air-fluid levels. The right sided small bowel loops are decompressed. There is moderate amount of stool in the ascending and transverse colon. The descending colon is decompressed.. Right-sided drainage catheter terminates in the right lower quadrant. PERITONEUM: Small amount of free air anterior to the right hepatic lobe. Small amount of fluid in the pouch of Rishi. LYMPH NODES: No enlarged lymph nodes. BONES: No acute fracture. There is diffuse bone demineralization and multilevel degenerative changes in the spine. OTHER FINDINGS: Postsurgical changes in the anterior abdominal wall. IMPRESSION: 1. Small pneumoperitoneum and fluid in the pouch of Rishi, likely postoperative in etiology. 2. Mild dilatation of fluid-filled bowel loops with multiple air-fluid levels in the left abdomen which may represent postoperative ileus however developing bowel obstruction cannot be excluded. The right-sided bowel loops are decompressed. 3. Confluent airspace disease in the left lower lobe may represent atelectasis/pneumonia. Small effusions. 4. Cholelithiasis.
--- NOTE | 2018-05-19 13:14 | CT ---
Date of service: 05/19/2018 PROCEDURE: CT Chest without contrast HISTORY: drop in Hgb. COMPARISON: None available. TECHNIQUE: Contiguous axial images were obtained through the chest without intravenous contrast enhancement. Sagittal and coronal reconstructions were performed. Radiation dose: Total exam DLP = 685.69 mGy-cm. This CT exam was performed using one or more of the following dose reduction techniques: Automated exposure control, adjustment of the mA and/or kV according to patient size, and/or use of iterative reconstruction technique. FINDINGS: LUNGS: There is confluent airspace disease in the lower lobes, worse on the left. There is multifocal ground-glass attenuation and tree-in-bud opacities in the right middle lobe and lingula. There is mild centrilobular emphysema and bullous changes in the left upper lobe. There are no endobronchial lesions. MEDIASTINUM: No aneurysm. Mild cardiomegaly. Main pulmonary artery unremarkable. No vascular congestion. No lymphadenopathy. There are aortic atherosclerotic calcification. PLEURA: Small effusions, worse on the left. No pneumothorax. BONES: No fracture. No destructive lesion. There is diffuse bone demineralization and multilevel degenerative changes in the spine. OTHER FINDINGS: None. IMPRESSION: Confluent airspace disease in the lower lobes, worse on the left and small effusions, larger on the left may represent multifocal pneumonia. Aspiration pneumonitis is a consideration given dependent location. Multifocal patchy ground-glass attenuation and tree-in-bud opacities in the right middle lobe and lingula may represent nonspecific infection/inflammation.
--- NOTE | 2018-05-19 14:09 | CP.PCM.PN ---
Subjective - Date & Time of Evaluation Date of Evaluation: 05/19/18 Time of Evaluation: 14:07 - Subjective Subjective: Pulmonary Follow up, Covering Dr Alston The patient was Seen/interviewed and examined by me at the bedside, Medical records reviewed and Management issues were discussed and formulated with the house staff. Events reviewed POD#2 s/p open LAR with colorectal anastomosis and incidental appendectomy. Comfortable, pain controlled with PRODUCT DIRECTOR AM Lbs with H/H drop, no evidence of active bleeding CT Chest/Abd/Pelvis reviewed - CT abd 05/19: small penumoperitoneum and fluid in pouch of Rishi. mild dilatation of fluid-filled bowel loops w/ air-fluid levels in L abdomen. cholelithiasis - CT abd/pel 05/16: necrotic sigmoid mass, adjacent adhesed small bowel loops causing obstruction. suspicious splenic masses. Objective - Vital Signs/Intake and Output Vital Signs (last 24 hours): Temp Pulse Resp BP Pulse Ox 98.4 F 93 H 16 112/58 L 95 05/19/18 08:00 05/19/18 09:02 05/19/18 09:02 05/19/18 10:08 05/19/18 09:02 Intake and Output: 05/19/18 05/19/18 06:59 18:59 Intake Total 2930 1240 Output Total 4170 1350 Balance -1240 -110 - Medications Medications: Current Medications Carvedilol (Coreg) 25 mg PO BID [facility] [place] Last Admin: 05/19/18 10:08 Dose: 25 mg Clopidogrel Bisulfate (Plavix) 75 mg PO DAILY [facility] Last Admin: 05/19/18 10:09 Dose: 75 mg Heparin Sodium (Porcine) (Heparin) 5,000 units SC Q8 [facility] [place] Last Admin: 05/19/18 06:39 Dose: 5,000 units Home Med (Patient's Own Drops) 1 drop OU BID [facility] Last Admin: 05/19/18 10:09 Dose: 1 drop Hydromorphone HCl (Dilaudid) 0.5 mg IVP Q4H PRN PRN Reason: Pain, moderate (4-7) Last Admin: 05/19/18 04:42 Dose: 0.5 mg Hydromorphone/Sodium Chloride (Dilaudid Programming Internship) 6 mg IV Q4H PRN; Protocol PRN Reason: Pain, moderate (4-7) Last Admin: 05/18/18 22:02 Dose: 6 mg Imipenem/Cilastatin Sodium 1, (000 mg/ Sodium Chloride) 250 mls @ 166.667 mls/hr IVPB Q6H [facility]; Protocol Last Admin: 05/19/18 06:40 Dose: 166.667 mls/hr Potassium Chloride 40 meq/ (Sodium Chloride) 1,020 mls @ 200 mls/hr IV .Q5H6M [facility] Last Admin: 05/19/18 10:45 Dose: 200 mls/hr Potassium Chloride (Potassium Chloride 20 Meq/100 Ml) 20 meq in 100 mls @ 50 mls/hr IVPB ONCE ONE Stop: 05/19/18 14:29 Last Admin: 05/19/18 12:35 Dose: 50 mls/hr Insulin Aspart (Novolog) 0 unit SC Q6H [facility]; Protocol Last Admin: 05/19/18 12:49 Dose: Not Given Ondansetron HCl (Zofran Inj) 4 mg IVP Q4H PRN PRN Reason: Nausea/Vomiting Last Admin: 05/17/18 04:19 Dose: 4 mg Pantoprazole Sodium (Protonix Inj) 40 mg IVP DAILY [facility] [place] Last Admin: 05/19/18 10:08 Dose: 40 mg Potassium Chloride (K-Dur 20 Meq Er Tab) 20 meq PO DAILY [facility] Last Admin: 05/19/18 10:08 Dose: 20 meq - Labs Labs: 05/19/18 08:38 05/19/18 08:38 PT 14.8 SECONDS (9.7-12.2) H 05/17/18 06:32 INR 1.4 05/17/18 06:32 APTT 28 SECONDS (21-34) 05/17/18 06:32
--- NOTE | 2018-05-19 14:39 | CP.PCM.PN ---
Subjective - Date & Time of Evaluation Date of Evaluation: 05/19/18 Time of Evaluation: 14:33 - Subjective Subjective: INFECTIOUS DISEASE ICU #9 PROGRESS NOTES POOJA CAREY MD, FACP [facility] 05/19/2018 CHART REVIEWED PT EXAMINED CASE DISCUSSED AWAKE AND ALERT LOOKS EXTREMELY PALE APPRECIATED DROP IN HGH FROM ~13 TO 8.4! AND LOW K+2.2 ROMERO IN AND MAKING URINE NO COUGH, NO CP(YET),NO FEVERS NICE DROP IN WBC AND BANDEMIA... ORDERS WRITTEN FOR TYPE AND SCREEN K+ REPLACEMENT ON GOING OBSERVE FOR LOCULATED ABSCESSES IN NEAR FUTURE, ETC. No events, large amount of urine out put overnight about 200ml/hr, patient clinically dry, despite ivf, drop in hemoglobin and low electrolytes confirmed with repeat labs. Sinus arrhythmia noticed likely from low electrolytes. Objective - Vital Signs/Intake and Output Vital Signs (last 24 hours): Temp Pulse Resp BP Pulse Ox 98.4 F 93 H 16 112/58 L 95 05/19/18 08:00 05/19/18 09:02 05/19/18 09:02 05/19/18 10:08 05/19/18 09:02 Intake and Output: 05/19/18 05/19/18 06:59 18:59 Intake Total 2930 790 Output Total 4170 0 Balance -1240 790 - Medications Medications: Current Medications Carvedilol (Coreg) 25 mg PO BID [facility] Last Admin: 05/19/18 10:08 Dose: 25 mg Clopidogrel Bisulfate (Plavix) 75 mg PO DAILY [facility] Last Admin: 05/19/18 10:09 Dose: 75 mg Heparin Sodium (Porcine) (Heparin) 5,000 units SC Q8 [facility] Last Admin: 05/19/18 06:39 Dose: 5,000 units Home Med (Patient's Own Drops) 1 drop OU BID [facility] Last Admin: 05/19/18 10:09 Dose: 1 drop Hydromorphone HCl (Dilaudid) 0.5 mg IVP Q4H PRN PRN Reason: Pain, moderate (4-7) Last Admin: 05/19/18 04:42 Dose: 0.5 mg Hydromorphone/Sodium Chloride (Dilaudid Thread Reeler) 6 mg IV Q4H PRN; Protocol PRN Reason: Pain, moderate (4-7) Last Admin: 05/18/18 22:02 Dose: 6 mg Imipenem/Cilastatin Sodium 1, (000 mg/ Sodium Chloride) 250 mls @ 166.667 mls/hr IVPB Q6H [facility]; Protocol Last Admin: 05/19/18 06:40 Dose: 166.667 mls/hr Potassium Chloride (Potassium Chloride 20 Meq/100 Ml) 20 meq in 100 mls @ 50 mls/hr IVPB ONCE ONE Stop: 05/19/18 13:14 Last Admin: 05/19/18 10:35 Dose: 50 mls/hr Potassium Chloride 40 meq/ (Sodium Chloride) 1,020 mls @ 200 mls/hr IV .Q5H6M [facility] Insulin Aspart (Novolog) 0 unit SC Q6H [facility]; Protocol Last Admin: 05/19/18 06:00 Dose: Not Given Ondansetron HCl (Zofran Inj) 4 mg IVP Q4H PRN PRN Reason: Nausea/Vomiting Last Admin: 05/17/18 04:19 Dose: 4 mg Pantoprazole Sodium (Protonix Inj) 40 mg IVP DAILY [facility] Last Admin: 05/19/18 10:08 Dose: 40 mg Potassium Chloride (K-Dur 20 Meq Er Tab) 20 meq PO DAILY [facility] Last Admin: 05/19/18 10:08 Dose: 20 meq - Labs Labs: 05/19/18 08:38 05/19/18 08:38 PT 14.8 SECONDS (9.7-12.2) H 05/17/18 06:32 INR 1.4 05/17/18 06:32 APTT 28 SECONDS (21-34) 05/17/18 06:32 - Additional Findings Additional findings: * HEENT JOSH * Neck supple * Chest clear * CVS irregular, but sinus on the tele * PA soft, tender but pain controlled with senior research scientist, bs absent * Ext no edema * Skin turgor low, clinically dry * Urine blue due to methlyne blue dye used * ADVERTISEMENT COMPOSITOR awake slight disorientation sometimes * Assessment and Plan - Assessment and Plan (Free Text) Assessment: * S/p sigmoid mass resection with anastomosis * Drop in hemoglobin * hypokalemia * hypomagnesimia * above likely from urinary loss * Diuretic phase of initial obstruction * Clinically dry * Metabolic alkalosis Plan: * KCL replacement * IVF with KCL to be balanced with urinary output * replace mag * Abd/pelvis Ct without contrast-MAY NEED TO REPEAT IN NEAR FUTURE, MENTIONED ABOVE. * awaiting path report * Gi/dvt prophylaxis * d/w surgery team about drop in hemoglobin/TYPE AND SCREEN ORDERED * Monitor labs, f/u replace * See orders for detail. Objective - Vital Signs/Intake and Output Vital Signs (last 24 hours): Temp Pulse Resp BP Pulse Ox 98.4 F 93 H 16 112/58 L 95 05/19/18 08:00 05/19/18 09:02 05/19/18 09:02 05/19/18 10:08 05/19/18 09:02 Intake and Output: 05/19/18 05/19/18 06:59 18:59 Intake Total 2930 1240 Output Total 4170 1350 Balance -1240 -110 - Medications Medications: Current Medications Carvedilol (Coreg) 25 mg PO BID [facility] Last Admin: 05/19/18 10:08 Dose: 25 mg Clopidogrel Bisulfate (Plavix) 75 mg PO DAILY [facility] Last Admin: 05/19/18 10:09 Dose: 75 mg Heparin Sodium (Porcine) (Heparin) 5,000 units SC Q8 [facility] Last Admin: 05/19/18 06:39 Dose: 5,000 units Home Med (Patient's Own Drops) 1 drop OU BID [facility] Last Admin: 05/19/18 10:09 Dose: 1 drop Hydromorphone HCl (Dilaudid) 0.5 mg IVP Q4H PRN PRN Reason: Pain, moderate (4-7) Last Admin: 05/19/18 04:42 Dose: 0.5 mg Hydromorphone/Sodium Chloride (Dilaudid Thread Reeler) 6 mg IV Q4H PRN; Protocol PRN Reason: Pain, moderate (4-7) Last Admin: 05/18/18 22:02 Dose: 6 mg Imipenem/Cilastatin Sodium 1, (000 mg/ Sodium Chloride) 250 mls @ 166.667 mls/hr IVPB Q6H [facility]; Protocol Last Admin: 05/19/18 06:40 Dose: 166.667 mls/hr Potassium Chloride 40 meq/ (Sodium Chloride) 1,020 mls @ 200 mls/hr IV .Q5H6M [facility] Last Admin: 05/19/18 10:45 Dose: 200 mls/hr Insulin Aspart (Novolog) 0 unit SC Q6H [facility]; Protocol Last Admin: 05/19/18 12:49 Dose: Not Given Ondansetron HCl (Zofran Inj) 4 mg IVP Q4H PRN PRN Reason: Nausea/Vomiting Last Admin: 05/17/18 04:19 Dose: 4 mg Pantoprazole Sodium (Protonix Inj) 40 mg IVP DAILY [facility] Last Admin: 05/19/18 10:08 Dose: 40 mg Potassium Chloride (K-Dur 20 Meq Er Tab) 20 meq PO DAILY [facility] Last Admin: 05/19/18 10:08 Dose: 20 meq - Labs Labs: 05/19/18 08:38 05/19/18 08:38 PT 14.8 SECONDS (9.7-12.2) H 05/17/18 06:32 INR 1.4 05/17/18 06:32 APTT 28 SECONDS (21-34) 05/17/18 06:32
[2018-05-19 15:48] LABS: HEMOGLOBIN 8.3 g/dL (11.0-16.0); MEAN CELL VOLUME 79.4 fL (81.0-99.0); MEAN CORPUSCULAR HEMOGLOBIN 25.4 pg (27.0-31.0); MEAN PLATELET VOLUME 8.8 fL (7.2-11.7); RBC 3.28 Mil/uL (3.80-5.20); RED CELL DISTRIBUTION WIDTH 17.3 % (11.5-14.5); WHITE BLOOD COUNT 13.3 K/uL (4.8-10.8)
[2018-05-19 16:13] LABS: ALB/GLOB RATIO 1.4 (1.0-2.1); ALBUMIN 3.2 g/dL (3.5-5.0); CALCIUM 7.9 mg/dl (8.6-10.4)
[2018-05-20] MEDS: Potassium Chloride 40 MEQ in Sodium Chloride 0.45% 1,000 ML IV SCH ×4 (01:30→13:00)
[2018-05-20] MEDS: (Novolog) Insulin Aspart, Recombinant 100 u/ml 10 ml vial SC SCH ×5 (06:00→22:00)
[2018-05-20 06:31] LABS: BASO % 0.1 % (0.0-2.0); EOS % 0.1 % (0.0-4.0); HEMOGLOBIN 8.4 g/dL (11.0-16.0); LYMPH # 0.9 K/uL (1.0-4.3); LYMPH % 7.2 % (20.0-40.0); MEAN CELL VOLUME 78.9 fL (81.0-99.0); MEAN CORPUSCULAR HEMOGLOBIN 25.6 pg (27.0-31.0); MEAN CORPUSCULAR HGB CONC 32.4 g/dL (33.0-37.0); MEAN PLATELET VOLUME 9.7 fL (7.2-11.7); MONO # 0.5 K/uL (0.0-0.8); MONO % 4.2 % (0.0-10.0); NEUT # 11.5 K/uL (1.8-7.0); NEUT % 88.4 % (50.0-75.0); PLATELET COUNT 219 K/uL (130-400); RBC 3.28 Mil/uL (3.80-5.20)
[2018-05-20 06:52] LABS: ALB/GLOB RATIO 1.4 (1.0-2.1); ALBUMIN 3.2 g/dL (3.5-5.0); ALT/SGPT 22 U/L (9-52); AST/SGOT 14 U/L (14-36); BLOOD UREA NITROGEN 11 mg/dL (7-17); CALCIUM 8.1 mg/dl (8.6-10.4); GFR NON-AFRICAN AMERICAN 54
[2018-05-20 08:49] LABS: ANISOCYTOSIS SLIGHT; HYPOCHROMIC SLIGHT; LYMPHOCYTE 5 % (20-40); MONOCYTE 2 % (0-10); NEUTROPHIL 93 % (50-75); OVALOCYTES SLIGHT; PLATELET ESTIMATE NORMAL (NORMAL); POLYCHROMIC SLIGHT; TOTAL CELLS COUNTED 100
--- NOTE | 2018-05-20 09:10 | CP.PCM.PN ---
Subjective - Date & Time of Evaluation Date of Evaluation: 05/20/18 Time of Evaluation: 09:07 - Subjective Subjective: General Surgery Progress Note for Dr. Dobbs This 77F wa sen and examined this AM at bedside no acute events overnight. Pt is making appropriate urine. She denies chest pain or SOB. She reports that he pain is improving. She reports that she is hungry and would like to eat. Objective - Vital Signs/Intake and Output Vital Signs (last 24 hours): Temp Pulse Resp BP Pulse Ox 98.1 F 81 19 178/84 H 97 05/20/18 08:00 05/20/18 08:03 05/20/18 08:03 05/20/18 08:03 05/20/18 08:03 Intake and Output: 05/20/18 05/20/18 06:59 18:59 Intake Total 2095 375 Output Total 2190 700 Balance -95 -325 - Medications Medications: Current Medications Carvedilol (Coreg) 25 mg PO BID [facility] Last Admin: 05/19/18 18:16 Dose: 25 mg Clopidogrel Bisulfate (Plavix) 75 mg PO DAILY [facility] Last Admin: 05/19/18 10:09 Dose: 75 mg Heparin Sodium (Porcine) (Heparin) 5,000 units SC Q8 [facility] Last Admin: 05/20/18 06:30 Dose: 5,000 units Home Med (Patient's Own Drops) 1 drop OU BID [facility] Last Admin: 05/19/18 18:18 Dose: 1 drop Hydromorphone HCl (Dilaudid) 0.5 mg IVP Q4H PRN PRN Reason: Pain, moderate (4-7) Last Admin: 05/19/18 04:42 Dose: 0.5 mg Hydromorphone/Sodium Chloride (Dilaudid Machine Trimmer) 6 mg IV Q4H PRN; Protocol PRN Reason: Pain, moderate (4-7) Last Admin: 05/18/18 22:02 Dose: 6 mg Imipenem/Cilastatin Sodium 1, (000 mg/ Sodium Chloride) 250 mls @ 166.667 mls/hr IVPB Q6H [facility]; Protocol Last Admin: 05/20/18 06:35 Dose: 166.667 mls/hr Potassium Chloride 40 meq/ (Sodium Chloride) 1,020 mls @ 200 mls/hr IV .Q5H6M [facility] Last Admin: 05/20/18 06:30 Dose: 200 mls/hr Potassium Chloride (Potassium Chloride 20 Meq/100 Ml) 20 meq in 100 mls @ 50 mls/hr IVPB Q2H [facility] Stop: 18 12:29 Last Admin: 05/20/18 08:36 Dose: 50 mls/hr Insulin Aspart (Novolog) 0 unit SC Q6H [facility]; Protocol Last Admin: 05/20/18 06:00 Dose: Not Given Ondansetron HCl (Zofran Inj) 4 mg IVP Q4H PRN PRN Reason: Nausea/Vomiting Last Admin: 05/19/18 21:30 Dose: 4 mg Pantoprazole Sodium (Protonix Inj) 40 mg IVP DAILY [facility] Last Admin: 05/19/18 10:08 Dose: 40 mg Potassium Chloride (K-Dur 20 Meq Er Tab) 20 meq PO DAILY [facility] Last Admin: 05/19/18 10:08 Dose: 20 meq - Labs Labs: 05/20/18 06:24 05/20/18 06:24 PT 14.8 SECONDS (9.7-12.2) H 05/17/18 06:32 INR 1.4 05/17/18 06:32 APTT 28 SECONDS (21-34) 05/17/18 06:32 - Constitutional Appears: Well, No Acute Distress - Head Exam Head Exam: ATRAUMATIC, NORMOCEPHALIC - Eye Exam Eye Exam: Normal appearance - ENT Exam ENT Exam: Mucous Membranes Moist - Respiratory Exam Respiratory Exam: NORMAL BREATHING PATTERN - Cardiovascular Exam Cardiovascular Exam: Tachycardia, RRR - GI/Abdominal Exam GI & Abdominal Exam: Soft, Tenderness (around midline incision ). absent: Distended, Rebound Additional comments: amalia drain in place with serosang output - Neurological Exam Neurological Exam: Alert, Awake, Oriented x3 - Skin Skin Exam: Dry, Warm Assessment and Plan - Assessment and Plan (Free Text) Assessment: 77F s/p LAR with primary anastomosis & appendectomy for necrotic sigmoid mass; POD#3 Plan: - Clear liquid diet - will slowly advance diet as tolerated - monitor UOP - encourage out of bed to chair & ambulation - pain management - decreased Hgb likely secondary to dilution - f/u path - d/w Dr. Dilia Walsh PGY3
[2018-05-20] MEDS: Magnesium Sulfate 1 gm in D5W 1 GM/100 ML BAG IVPB SCH ×2 (10:40→11:10)
--- NOTE | 2018-05-20 10:44 | CP.CCUPN ---
CCU Subjective - Physician Review Subjective (Free Text): 05/20/18 10:41 Moitito Burch PGY1 Progress note for Dr. Sprague Pt was examined at bedside this morning. She reports improvement in her abdominal pain. She denies any nausea or vomiting. She denies chest pain, shortness of breath, diarrhea, dysuria. CCU Objective - Vital Signs / Intake & Output Vital Signs (Last 4 hours): Vital Signs Temp Pulse Resp BP Pulse Ox 05/20/18 08:03 81 19 178/84 H 97 05/20/18 08:00 98.1 F 95 H 19 93 L 05/20/18 07:06 74 18 170/83 H 98 05/20/18 07:00 77 15 98 Intake and Output (Last 8hrs): Intake & Output 05/19/18 05/20/18 05/20/18 22:59 06:59 14:59 Intake Total 1745 1375 375 Output Total 2170 1650 700 Balance -425 -275 -325 Weight 184 lb 4.903 oz Intake: Intake, IV Amount 1625 1375 325 Left Hand 700 1375 325 Right Hand 800 Right Proximal Port Hand 125 Oral 120 50 Output: Drainage 30 40 Right Abdomen 30 40 Urine 2140 1610 700 Urethral (Goyal) 2140 1610 700 Other: # Bowel Movements 0 - Physical Exam Head: Positive for: Atraumatic, Normocephalic Pupils: Positive for: PERRL Extroacular Muscles: Positive for: EOMI Conjunctiva: Positive for: Normal Mouth: Positive for: Moist Mucous Membranes Respiratory/Chest: Positive for: Clear to Auscultation, Good Air Exchange. Negative for: Respiratory Distress, Accessory Muscle Use, Wheezes, Rales, Rhonchi Cardiovascular: Positive for: Regular Rate and Rhythm, Normal S1, S2. Negative for: Murmurs, Rub, Gallop Abdomen: Positive for: Normal Bowel Sounds, Other (drain intact, w/ serosanginous fluid). Negative for: Tenderness, Distention, Peritoneal Signs Upper Extremity: Positive for: Normal Inspection. Negative for: Cyanosis, Edema Lower Extremity: Positive for: Normal Inspection. Negative for: Edema Neurological: Positive for: GCS=15, CN II-XII Intact, Speech Normal Skin: Positive for: Dry, Normal Color Psychiatric: Positive for: Alert, Oriented x 3 - Medications Active Medications: Active Medications Generic Name Dose Route Start Last Admin Trade Name Freq PRN Reason Stop Dose Admin Carvedilol 25 mg 05/15/18 10:00 05/19/18 18:16 Coreg PO 25 mg BID [facility] Administration Clopidogrel Bisulfate 75 mg 05/18/18 10:00 05/19/18 10:09 Plavix PO 75 mg DAILY [facility] Administration Heparin Sodium (Porcine) 5,000 units 05/18/18 06:00 05/20/18 06:30 Heparin SC 5,000 units Q8 [facility] Administration Home Med 1 drop 05/15/18 18:00 05/19/18 18:18 Patient's Own Drops OU 1 drop BID [facility] Administration Hydromorphone HCl 0.5 mg 05/17/18 21:45 05/19/18 04:42 Dilaudid IVP 0.5 mg Q4H PRN Administration Pain, moderate (4-7) Imipenem/Cilastatin Sodium 1, 250 mls @ 166.667 mls/hr 05/19/18 01:00 05/20/18 06:35 000 mg/ Sodium Chloride IVPB 166.667 mls/hr Q6H [facility] Administration Protocol Potassium Chloride 40 meq/ 1,020 mls @ 200 mls/hr 05/19/18 10:15 05/20/18 06:30 Sodium Chloride IV 200 mls/hr .Q5H6M [facility] Administration Potassium Chloride 20 meq in 100 mls @ 50 mls/hr 05/20/18 08:30 05/20/18 08:36 Potassium Chloride 20 Meq/100 Ml IVPB 05/20/18 12:29 50 mls/hr Q2H [facility] Administration Magnesium Sulfate/Dextrose 1 gm in 100 mls @ 200 mls/hr 05/20/18 09:45 Magnesium Sulfate 1 Gm/100 Ml D5w IVPB 05/20/18 10:44 Q30M [facility] Potassium Chloride 20 meq in 100 mls @ 50 mls/hr 05/20/18 12:00 Potassium Chloride 20 Meq/100 Ml IVPB 05/20/18 15:59 Q2H [facility] Insulin Aspart 0 unit 05/18/18 00:00 05/20/18 06:00 Novolog SC Not Given Q6H [facility] Protocol Ondansetron HCl 4 mg 05/17/18 03:52 05/19/18 21:30 Zofran Inj IVP 4 mg Q4H PRN Administration Nausea/Vomiting Pantoprazole Sodium 40 mg 05/15/18 10:00 05/19/18 10:08 Protonix Inj IVP 40 mg DAILY [facility] Administration Potassium Chloride 20 meq 05/19/18 10:00 05/19/18 10:08 K-Dur 20 Meq Er Tab PO 20 meq DAILY [facility] Administration - Patient Studies Lab Studies: Microbiology Studies 05/18/18 22:35 Blood Culture - Preliminary Blood-Venous NO GROWTH AFTER 24 HOURS 05/15/18 00:27 Blood Culture - Final Blood NO GROWTH AFTER 5 DAYS Gram Stain - Final TEST NOT PERFORMED 05/14/18 23:00 Blood Culture - Final Blood NO GROWTH AFTER 5 DAYS Gram Stain - Final TEST NOT PERFORMED 05/18/18 20:33 Blood Culture - Preliminary Blood-Venous NO GROWTH AFTER 24 HOURS 05/17/18 00:37 MRSA Culture (Admit) - Final Nose MRSA NOT DETECTED Lab Studies 05/20/18 05/20/18 05/20/18 Range/Units 06:24 06:24 05:11 WBC 13.0 H (4.8-10.8) K/uL RBC 3.28 L (3.80-5.20) Mil/uL Hgb 8.4 L (11.0-16.0) g/dL Hct 25.9 L (34.0-47.0) % MCV 78.9 L (81.0-99.0) fL MCH 25.6 L (27.0-31.0) pg MCHC 32.4 L (33.0-37.0) g/dL RDW 17.0 H (11.5-14.5) % Plt Count 219 (130-400) K/uL MPV 9.7 (7.2-11.7) fL Neut % (Auto) 88.4 H (50.0-75.0) % Lymph % (Auto) 7.2 L (20.0-40.0) % Karnes % (Auto) 4.2 (0.0-10.0) % Eos % (Auto) 0.1 (0.0-4.0) % Baso % (Auto) 0.1 (0.0-2.0) % Neut # (Auto) 11.5 H (1.8-7.0) K/uL Lymph # (Auto) 0.9 L (1.0-4.3) K/uL Karnes # (Auto) 0.5 (0.0-0.8) K/uL Eos # (Auto) 0.0 (0.0-0.7) K/uL Baso # (Auto) 0.0 (0.0-0.2) K/uL Neutrophils % (Manual) 93 H (50-75) % Lymphocytes % (Manual) 5 L (20-40) % Monocytes % (Manual) 2 (0-10) % Differential Comment Platelet Estimate Normal (NORMAL) Polychromasia Slight Hypochromasia (manual) Slight Anisocytosis (manual) Slight Ovalocytes Slight Sodium 134 (132-148) mmol/L Potassium 2.8 L (3.6-5.2) mmol/L Chloride 92 L (98-107) mmol/L Carbon Dioxide 28 (22-30) mmol/L Anion Gap 17 (10-20) BUN 11 (7-17) mg/dL Creatinine 1.0 (0.7-1.2) mg/dL Est GFR ( Amer) > 60 Est GFR (Non-Af Amer) 54 POC Glucose (mg/dL) 101 (65-110) mg/dL Random Glucose 103 (65-105) mg/dL Calcium 8.1 L (8.6-10.4) mg/dl Phosphorus 3.0 (2.5-4.5) mg/dL Magnesium 1.6 (1.6-2.3) mg/dL Total Bilirubin 1.0 (0.2-1.3) mg/dL AST 14 (14-36) U/L ALT 22 (9-52) U/L Alkaline Phosphatase 50 (38-126) U/L Total Protein 5.6 L (6.3-8.3) g/dL Albumin 3.2 L (3.5-5.0) g/dL Globulin 2.3 (2.2-3.9) gm/dL Albumin/Globulin Ratio 1.4 (1.0-2.1) Blood Type Antibody Screen 05/19/18 05/19/18 05/19/18 Range/Units 23:35 17:38 15:44 WBC (4.8-10.8) K/uL RBC (3.80-5.20) Mil/uL Hgb (11.0-16.0) g/dL Hct (34.0-47.0) % MCV (81.0-99.0) fL MCH (27.0-31.0) pg MCHC (33.0-37.0) g/dL RDW (11.5-14.5) % Plt Count (130-400) K/uL MPV (7.2-11.7) fL Neut % (Auto) (50.0-75.0) % Lymph % (Auto) (20.0-40.0) % Karnes % (Auto) (0.0-10.0) % Eos % (Auto) (0.0-4.0) % Baso % (Auto) (0.0-2.0) % Neut # (Auto) (1.8-7.0) K/uL Lymph # (Auto) (1.0-4.3) K/uL Karnes # (Auto) (0.0-0.8) K/uL Eos # (Auto) (0.0-0.7) K/uL Baso # (Auto) (0.0-0.2) K/uL Neutrophils % (Manual) (50-75) % Lymphocytes % (Manual) (20-40) % Monocytes % (Manual) (0-10) % Differential Comment Platelet Estimate (NORMAL) Polychromasia Hypochromasia (manual) Anisocytosis (manual) Ovalocytes Sodium (132-148) mmol/L Potassium (3.6-5.2) mmol/L Chloride (98-107) mmol/L Carbon Dioxide (22-30) mmol/L Anion Gap (10-20) BUN (7-17) mg/dL Creatinine (0.7-1.2) mg/dL Est GFR ( Amer) Est GFR (Non-Af Amer) POC Glucose (mg/dL) 93 99 (65-110) mg/dL Random Glucose (65-105) mg/dL Calcium (8.6-10.4) mg/dl Phosphorus (2.5-4.5) mg/dL Magnesium (1.6-2.3) mg/dL Total Bilirubin (0.2-1.3) mg/dL AST (14-36) U/L ALT (9-52) U/L Alkaline Phosphatase (38-126) U/L Total Protein (6.3-8.3) g/dL Albumin (3.5-5.0) g/dL Globulin (2.2-3.9) gm/dL Albumin/Globulin Ratio (1.0-2.1) Blood Type O POSITIVE Antibody Screen Negative 05/19/18 05/19/18 05/19/18 Range/Units 15:44 15:44 12:01 WBC 13.3 H (4.8-10.8) K/uL RBC 3.28 L (3.80-5.20) Mil/uL Hgb 8.3 L (11.0-16.0) g/dL Hct 26.0 L (34.0-47.0) % MCV 79.4 L (81.0-99.0) fL MCH 25.4 L (27.0-31.0) pg MCHC 32.0 L (33.0-37.0) g/dL RDW 17.3 H (11.5-14.5) % Plt Count 209 (130-400) K/uL MPV 8.8 (7.2-11.7) fL Neut % (Auto) (50.0-75.0) % Lymph % (Auto) (20.0-40.0) % Karnes % (Auto) (0.0-10.0) % Eos % (Auto) (0.0-4.0) % Baso % (Auto) (0.0-2.0) % Neut # (Auto) (1.8-7.0) K/uL Lymph # (Auto) (1.0-4.3) K/uL Karnes # (Auto) (0.0-0.8) K/uL Eos # (Auto) (0.0-0.7) K/uL Baso # (Auto) (0.0-0.2) K/uL Neutrophils % (Manual) (50-75) % Lymphocytes % (Manual) (20-40) % Monocytes % (Manual) (0-10) % Differential Comment Platelet Estimate (NORMAL) Polychromasia Hypochromasia (manual) Anisocytosis (manual) Ovalocytes Sodium 134 (132-148) mmol/L Potassium 3.0 L (3.6-5.2) mmol/L Chloride 92 L (98-107) mmol/L Carbon Dioxide 30 (22-30) mmol/L Anion Gap 15 (10-20) BUN 13 (7-17) mg/dL Creatinine 1.3 H (0.7-1.2) mg/dL Est GFR ( Amer) 48 Est GFR (Non-Af Amer) 40 POC Glucose (mg/dL) 149 H (65-110) mg/dL Random Glucose 113 H (65-105) mg/dL Calcium 7.9 L (8.6-10.4) mg/dl Phosphorus 3.8 (2.5-4.5) mg/dL Magnesium 1.9 (1.6-2.3) mg/dL Total Bilirubin 1.3 (0.2-1.3) mg/dL AST 14 (14-36) U/L ALT 23 (9-52) U/L Alkaline Phosphatase 46 (38-126) U/L Total Protein 5.4 L (6.3-8.3) g/dL Albumin 3.2 L (3.5-5.0) g/dL Globulin 2.2 (2.2-3.9) gm/dL Albumin/Globulin Ratio 1.4 (1.0-2.1) Blood Type Antibody Screen 05/19/18 05/17/18 Range/Units 08:38 18:35 WBC 12.5 H (4.8-10.8) K/uL RBC 3.22 L (3.80-5.20) Mil/uL Hgb 8.4 L (11.0-16.0) g/dL Hct 25.9 L (34.0-47.0) % MCV 80.3 L (81.0-99.0) fL MCH 26.1 L (27.0-31.0) pg MCHC 32.6 L (33.0-37.0) g/dL RDW 16.6 H (11.5-14.5) % Plt Count 223 (130-400) K/uL MPV 8.8 (7.2-11.7) fL Neut % (Auto) 88.9 H (50.0-75.0) % Lymph % (Auto) 5.0 L (20.0-40.0) % Karnes % (Auto) 6.0 (0.0-10.0) % Eos % (Auto) 0.0 (0.0-4.0) % Baso % (Auto) 0.1 (0.0-2.0) % Neut # (Auto) 11.2 H (1.8-7.0) K/uL Lymph # (Auto) 0.6 L (1.0-4.3) K/uL Karnes # (Auto) 0.7 (0.0-0.8) K/uL Eos # (Auto) 0.0 (0.0-0.7) K/uL Baso # (Auto) 0.0 (0.0-0.2) K/uL Neutrophils % (Manual) (50-75) % Lymphocytes % (Manual) (20-40) % Monocytes % (Manual) (0-10) % Differential Comment Platelet Estimate (NORMAL) Polychromasia Hypochromasia (manual) Anisocytosis (manual) Ovalocytes Sodium (132-148) mmol/L Potassium (3.6-5.2) mmol/L Chloride (98-107) mmol/L Carbon Dioxide (22-30) mmol/L Anion Gap (10-20) BUN (7-17) mg/dL Creatinine (0.7-1.2) mg/dL Est GFR ( Amer) Est GFR (Non-Af Amer) POC Glucose (mg/dL) 184 H (65-110) mg/dL Random Glucose (65-105) mg/dL Calcium (8.6-10.4) mg/dl Phosphorus (2.5-4.5) mg/dL Magnesium (1.6-2.3) mg/dL Total Bilirubin (0.2-1.3) mg/dL AST (14-36) U/L ALT (9-52) U/L Alkaline Phosphatase (38-126) U/L Total Protein (6.3-8.3) g/dL Albumin (3.5-5.0) g/dL Globulin (2.2-3.9) gm/dL Albumin/Globulin Ratio (1.0-2.1) Blood Type Antibody Screen Laboratory Results - last 24 hr 05/17/18 05/19/18 05/19/18 18:35 08:38 12:01 WBC 12.5 H RBC 3.22 L Hgb 8.4 L Hct 25.9 L MCV 80.3 L MCH 26.1 L MCHC 32.6 L RDW 16.6 H Plt Count 223 MPV 8.8 Neut % (Auto) 88.9 H Lymph % (Auto) 5.0 L Karnes % (Auto) 6.0 Eos % (Auto) 0.0 Baso % (Auto) 0.1 Neut # (Auto) 11.2 H Lymph # (Auto) 0.6 L Karnes # (Auto) 0.7 Eos # (Auto) 0.0 Baso # (Auto) 0.0 Neutrophils % (Manual) Lymphocytes % (Manual) Monocytes % (Manual) Differential Comment Platelet Estimate Polychromasia Hypochromasia (manual) Anisocytosis (manual) Ovalocytes Sodium Potassium Chloride Carbon Dioxide Anion Gap BUN Creatinine Est GFR ( Amer) Est GFR (Non-Af Amer) POC Glucose (mg/dL) 184 H 149 H Random Glucose Calcium Phosphorus Magnesium Total Bilirubin AST ALT Alkaline Phosphatase Total Protein Albumin Globulin Albumin/Globulin Ratio Blood Type Antibody Screen 05/19/18 05/19/18 05/19/18 15:44 15:44 15:44 WBC 13.3 H RBC 3.28 L Hgb 8.3 L Hct 26.0 L MCV 79.4 L MCH 25.4 L MCHC 32.0 L RDW 17.3 H Plt Count 209 MPV 8.8 Neut % (Auto) Lymph % (Auto) Karnes % (Auto) Eos % (Auto) Baso % (Auto) Neut # (Auto) Lymph # (Auto) Karnes # (Auto) Eos # (Auto) Baso # (Auto) Neutrophils % (Manual) Lymphocytes % (Manual) Monocytes % (Manual) Differential Comment Platelet Estimate Polychromasia Hypochromasia (manual) Anisocytosis (manual) Ovalocytes Sodium 134 Potassium 3.0 L Chloride 92 L Carbon Dioxide 30 Anion Gap 15 BUN 13 Creatinine 1.3 H Est GFR ( Amer) 48 Est GFR (Non-Af Amer) 40 POC Glucose (mg/dL) Random Glucose 113 H Calcium 7.9 L Phosphorus 3.8 Magnesium 1.9 Total Bilirubin 1.3 AST 14 ALT 23 Alkaline Phosphatase 46 Total Protein 5.4 L Albumin 3.2 L Globulin 2.2 Albumin/Globulin Ratio 1.4 Blood Type O POSITIVE Antibody Screen Negative 05/19/18 05/19/18 05/20/18 17:38 23:35 05:11 WBC RBC Hgb Hct MCV MCH MCHC RDW Plt Count MPV Neut % (Auto) Lymph % (Auto) Karnes % (Auto) Eos % (Auto) Baso % (Auto) Neut # (Auto) Lymph # (Auto) Karnes # (Auto) Eos # (Auto) Baso # (Auto) Neutrophils % (Manual) Lymphocytes % (Manual) Monocytes % (Manual) Differential Comment Platelet Estimate Polychromasia Hypochromasia (manual) Anisocytosis (manual) Ovalocytes Sodium Potassium Chloride Carbon Dioxide Anion Gap BUN Creatinine Est GFR ( Amer) Est GFR (Non-Af Amer) POC Glucose (mg/dL) 99 93 101 Random Glucose Calcium Phosphorus Magnesium Total Bilirubin AST ALT Alkaline Phosphatase Total Protein Albumin Globulin Albumin/Globulin Ratio Blood Type Antibody Screen 05/20/18 05/20/18 06:24 06:24 WBC 13.0 H RBC 3.28 L Hgb 8.4 L Hct 25.9 L MCV 78.9 L MCH 25.6 L MCHC 32.4 L RDW 17.0 H Plt Count 219 MPV 9.7 Neut % (Auto) 88.4 H Lymph % (Auto) 7.2 L Karnes % (Auto) 4.2 Eos % (Auto) 0.1 Baso % (Auto) 0.1 Neut # (Auto) 11.5 H Lymph # (Auto) 0.9 L Karnes # (Auto) 0.5 Eos # (Auto) 0.0 Baso # (Auto) 0.0 Neutrophils % (Manual) 93 H Lymphocytes % (Manual) 5 L Monocytes % (Manual) 2 Differential Comment Platelet Estimate Normal Polychromasia Slight Hypochromasia (manual) Slight Anisocytosis (manual) Slight Ovalocytes Slight Sodium 134 Potassium 2.8 L Chloride 92 L Carbon Dioxide 28 Anion Gap 17 BUN 11 Creatinine 1.0 Est GFR ( Amer) > 60 Est GFR (Non-Af Amer) 54 POC Glucose (mg/dL) Random Glucose 103 Calcium 8.1 L Phosphorus 3.0 Magnesium 1.6 Total Bilirubin 1.0 AST 14 ALT 22 Alkaline Phosphatase 50 Total Protein 5.6 L Albumin 3.2 L Globulin 2.3 Albumin/Globulin Ratio 1.4 Blood Type Antibody Screen Fingerstick Blood Sugar Results: 101 Review of Systems - Review of Systems Review of Systems: as per HPI Critical Care Progress Note - Nutrition Nutrition: Nutrition Category Date Time Status Liquid Diet [DIET] Diets 05/20/18 Breakfast Active Assessment/Plan - Assessment and Plan (Free Text) Assessment: 77yo F with PMH COPD, CHF, HTN, DM presented with LLQ abdominal pain, found to have pelvic mass in sigmoid colon. S/p sigmoid resection and appendectomy on 05/17. Admitted to ICU for further monitoring. Plan: Neuro - AAO x3 - no focal deficits Cardiovascular - h/o CHF, HTN - coreg 25mg PO BID - plavix 75mg PO daily - maintain normotension - followed by luz Sanchez appreciated Pulm - h/o COPD - CT chest 05/19: possible multifocal PNA in lower lobes, worse on L. small effusions, larger on L. multifocal patchy ground-glass attenuation and tree-in-bud opacities in R middle lobe and lingula - incentive spirometry - nasal cannula - Pulm consulted, Dr. Gamaliel escobar appreciated GI - s/p sigmoid resection and incidental appendectomy 05/17 - CT abd 05/19: small penumoperitoneum and fluid in pouch of Rishi. mild dilatation of fluid-filled bowel loops w/ air-fluid levels in L abdomen. cholelithiasis - CT abd/pel 05/16: necrotic sigmoid mass, adjacent adhesed small bowel loops causing obstruction. suspicious splenic masses. - f/u path report - CLD, advance as tolerated - zofran 4mg IV q4h PRN - protonix 40mg IV daily - dilaudid 0.5mg IV q6h PRN - Gen Sx consulted, Dr. Dilia escobar appreciated - GI consulted, Dr. Jin escobar appreciated Renal - ARF improving, BUN/Cr 11/1.0 - good urine output - avoid nephrotoxic agents - Nephro consulted, Dr. Christina escobar appreciated Heme - H/H 8.4/25.9 - plavix 75mg PO daily - heparin 5000u SC q8h ID - pt afebrile - leukocytosis downtrending - CT chest 05/19: possible multifocal PNA in lower lobes, worse on L. small effusions, larger on L. multifocal patchy ground-glass attenuation and tree-in-bud opacities in R middle lobe and lingula - rpt BCx neg x1 - UCx neg - primaxin 1g IV q6h (05/19) - ID consulted, Dr. Nahid escobar appreciated PPX: GI: protonix DVT: heparin 5000 sc q8h CLD Pt seen and case reviewed with Dr. Sprague
[2018-05-20] MEDS: Potassium Chloride 20 mEq ER Tab PO SCH (10:56)
[2018-05-20] MEDS: DORZOLAMIDE HCL OU SCH ×2 (10:57→17:01)
[2018-05-20] MEDS: TIMOLOL MALEATE OU SCH ×2 (10:57→17:01)
--- NOTE | 2018-05-20 13:59 | CP.PCM.PN ---
Subjective - Date & Time of Evaluation Date of Evaluation: 05/20/18 Time of Evaluation: 13:57 - Subjective Subjective: weak,nausea Objective - Vital Signs/Intake and Output Vital Signs (last 24 hours): Temp Pulse Resp BP Pulse Ox 98.5 F 73 21 129/66 98 05/20/18 12:00 05/20/18 13:04 05/20/18 13:04 05/20/18 13:04 05/20/18 13:04 Intake and Output: 05/20/18 05/20/18 06:59 18:59 Intake Total 2095 1275 Output Total 2190 1989 Balance -95 -715 - Medications Medications: Current Medications Carvedilol (Coreg) 25 mg PO BID [facility] Last Admin: 05/20/18 10:56 Dose: 25 mg Clopidogrel Bisulfate (Plavix) 75 mg PO DAILY [facility] Last Admin: 05/20/18 10:56 Dose: 75 mg Heparin Sodium (Porcine) (Heparin) 5,000 units SC Q8 [facility] Last Admin: 05/20/18 13:48 Dose: 5,000 units Home Med (Patient's Own Drops) 1 drop OU BID [facility] Last Admin: 05/20/18 10:57 Dose: 1 drop Hydromorphone HCl (Dilaudid) 0.5 mg IVP Q4H PRN PRN Reason: Pain, moderate (4-7) Last Admin: 05/19/18 04:42 Dose: 0.5 mg Imipenem/Cilastatin Sodium 1, (000 mg/ Sodium Chloride) 250 mls @ 166.667 mls/hr IVPB Q6H [facility]; Protocol Last Admin: 05/20/18 12:37 Dose: 166.667 mls/hr Potassium Chloride (Potassium Chloride 20 Meq/100 Ml) 20 meq in 100 mls @ 50 mls/hr IVPB Q2H [facility] Stop: 05/20/18 15:59 Last Admin: 05/20/18 13:48 Dose: 50 mls/hr Potassium Chloride 40 meq/ (Sodium Chloride) 1,020 mls @ 50 mls/hr IV .[id number] [facility] Last Admin: 05/20/18 13:00 Dose: 50 mls/hr Insulin Aspart (Novolog) 0 unit SC Q6H [facility]; Protocol Last Admin: 05/20/18 12:36 Dose: 1 units Ondansetron HCl (Zofran Inj) 4 mg IVP Q4H PRN PRN Reason: Nausea/Vomiting Last Admin: 05/19/18 21:30 Dose: 4 mg Pantoprazole Sodium (Protonix Inj) 40 mg IVP DAILY [facility] Last Admin: 05/20/18 10:56 Dose: 40 mg Potassium Chloride (K-Dur 20 Meq Er Tab) 20 meq PO DAILY [facility] Last Admin: 05/20/18 10:56 Dose: 20 meq - Labs Labs: 05/20/18 06:24 05/20/18 06:24 PT 14.8 SECONDS (9.7-12.2) H 05/17/18 06:32 INR 1.4 05/17/18 06:32 APTT 28 SECONDS (21-34) 05/17/18 06:32 - Constitutional Appears: No Acute Distress, Chronically Ill - Eye Exam Eye Exam: Normal appearance - Neck Exam Neck Exam: Normal Inspection - Respiratory Exam Respiratory Exam: Decreased Breath Sounds - Cardiovascular Exam Cardiovascular Exam: REGULAR RHYTHM - GI/Abdominal Exam GI & Abdominal Exam: Soft - Extremities Exam Extremities Exam: Pedal Edema - Neurological Exam Neurological Exam: Alert, Oriented x3 Assessment and Plan - Assessment and Plan (Free Text) Plan: s/p or,colon.k is being supplemented.
[2018-05-20 15:06] LABS: HEMOGLOBIN 9.4 g/dL (11.0-16.0); MEAN CELL VOLUME 79.3 fL (81.0-99.0); MEAN CORPUSCULAR HEMOGLOBIN 24.9 pg (27.0-31.0); MEAN CORPUSCULAR HGB CONC 31.4 g/dL (33.0-37.0); MEAN PLATELET VOLUME 9.2 fL (7.2-11.7); RBC 3.79 Mil/uL (3.80-5.20); RED CELL DISTRIBUTION WIDTH 17.2 % (11.5-14.5); WHITE BLOOD COUNT 15.6 K/uL (4.8-10.8)
--- NOTE | 2018-05-20 15:24 | CP.PCM.PN ---
Subjective - Date & Time of Evaluation Date of Evaluation: 05/20/18 Time of Evaluation: 15:16 - Subjective Subjective: INFECTIOUS DISEASE ICU PROGRESS NOTES POOJA CAREY MD, FACP 05/20/2018 CHART REVIEWED PT EXAMINED CASE DISCUSSED WITH GI COVERING PHYSICIAN This 77F WAS SEEN and examined this AM at bedside no acute events overnight. Pt is making appropriate urine. She denies chest pain or SOB. She reports that he pain is improving. She reports that she is hungry and would like to eat, TOLERATING LIQUIDS TO WET HER LIPS AND CLEAR FLUIDS IN A LIMITED FASHION. WBC DOWN TO ~ 13, HGH IS 8.5 - WOULD PREFER IN THIS ELDERLY FEMALE WITH SEVERE CARDIAC ISSUES TO KEEP HER HGH ELEVATED, IF POSSIBLE. TO DECREASE HER PRIMAXIN DOSE DOWN GUADALUPE TO 500MG IVPG Q 6 HOURS. Objective - Vital Signs/Intake and Output Vital Signs (last 24 hours): Temp Pulse Resp BP Pulse Ox 98.5 F 65 19 161/76 H 100 05/20/18 12:00 05/20/18 15:03 05/20/18 15:03 05/20/18 15:03 05/20/18 15:03 Intake and Output: 05/20/18 05/20/18 06:59 18:59 Intake Total 2095 1475 Output Total 2190 2140 Balance -95 -665 - Medications Medications: Current Medications Carvedilol (Coreg) 25 mg PO BID [facility] Last Admin: 05/20/18 10:56 Dose: 25 mg Clopidogrel Bisulfate (Plavix) 75 mg PO DAILY [facility] Last Admin: 05/20/18 10:56 Dose: 75 mg Heparin Sodium (Porcine) (Heparin) 5,000 units SC Q8 [facility] Last Admin: 05/20/18 13:48 Dose: 5,000 units Home Med (Patient's Own Drops) 1 drop OU BID [facility] Last Admin: 05/20/18 10:57 Dose: 1 drop Hydromorphone HCl (Dilaudid) 0.5 mg IVP Q4H PRN PRN Reason: Pain, moderate (4-7) Last Admin: 05/19/18 04:42 Dose: 0.5 mg Imipenem/Cilastatin Sodium 1, (000 mg/ Sodium Chloride) 250 mls @ 166.667 mls/hr IVPB Q6H [facility]; Protocol Last Admin: 05/20/18 12:37 Dose: 166.667 mls/hr Potassium Chloride (Potassium Chloride 20 Meq/100 Ml) 20 meq in 100 mls @ 50 mls/hr IVPB Q2H [facility] Stop: 05/20/18 15:59 Last Admin: 05/20/18 13:48 Dose: 50 mls/hr Potassium Chloride 40 meq/ (Sodium Chloride) 1,020 mls @ 50 mls/hr IV .[id number] [facility] Last Admin: 05/20/18 13:00 Dose: 50 mls/hr Insulin Aspart (Novolog) 0 unit SC ACHS [facility]; Protocol Ondansetron HCl (Zofran Inj) 4 mg IVP Q4H PRN PRN Reason: Nausea/Vomiting Last Admin: 05/19/18 21:30 Dose: 4 mg Pantoprazole Sodium (Protonix Inj) 40 mg IVP DAILY [facility] Last Admin: 05/20/18 10:56 Dose: 40 mg Potassium Chloride (K-Dur 20 Meq Er Tab) 20 meq PO DAILY [facility] Last Admin: 05/20/18 10:56 Dose: 20 meq - Labs Labs: 05/20/18 15:01 05/20/18 06:24 PT 14.8 SECONDS (9.7-12.2) H 05/17/18 06:32 INR 1.4 05/17/18 06:32 APTT 28 SECONDS (21-34) 05/17/18 06:32
[2018-05-20 15:27] LABS: ALB/GLOB RATIO 1.3 (1.0-2.1); ALBUMIN 3.5 g/dL (3.5-5.0); ALT/SGPT 24 U/L (9-52); AST/SGOT 15 U/L (14-36); BLOOD UREA NITROGEN 10 mg/dL (7-17); CALCIUM 8.2 mg/dl (8.6-10.4); GFR NON-AFRICAN AMERICAN > 60
[2018-05-20] MEDS ORDERED: Potassium Phosphate 15 MMOLE in Sodium Chloride 0.9% 250 ML IVPB ONE (15:45)
--- NOTE | 2018-05-20 15:49 | CP.PCM.PN ---
Subjective - Date & Time of Evaluation Date of Evaluation: 05/20/18 Time of Evaluation: 15:48 - Subjective Subjective: RENAL: seen and examined feels better pain reasonably controlled pe: vs as below gen: nad sclera: anicteric op: clear neck: supple no thyromegaly cv: +S1+s2 no rub abd: trae drain, no appreciable organomegaly lungs: reduced bs at bases ext: trace edema neuro: a+ox3 no focal defecit psych: flat skin no rash labs and imaging reviewed imp: ARF/ Colon mass/ ANemia / hypokalemia/ hypomagnesemia plan: cr improved replete k - likely loss due to post atn diuresis avoid hypotension continue supportive measures replete K mag improved f/u path on colon mass transfusions per primary team Objective - Vital Signs/Intake and Output Vital Signs (last 24 hours): Temp Pulse Resp BP Pulse Ox 98.5 F 65 19 161/76 H 100 05/20/18 12:00 05/20/18 15:03 05/20/18 15:03 05/20/18 15:03 05/20/18 15:03 Intake and Output: 05/20/18 05/20/18 06:59 18:59 Intake Total 2095 1475 Output Total 2190 2140 Balance -95 -665 - Medications Medications: Current Medications Carvedilol (Coreg) 25 mg PO BID [facility] Last Admin: 05/20/18 10:56 Dose: 25 mg Clopidogrel Bisulfate (Plavix) 75 mg PO DAILY [facility] Last Admin: 05/20/18 10:56 Dose: 75 mg Heparin Sodium (Porcine) (Heparin) 5,000 units SC Q8 [facility] Last Admin: 05/20/18 13:48 Dose: 5,000 units Home Med (Patient's Own Drops) 1 drop OU BID [facility] Last Admin: 05/20/18 10:57 Dose: 1 drop Hydromorphone HCl (Dilaudid) 0.5 mg IVP Q4H PRN PRN Reason: Pain, moderate (4-7) Last Admin: 05/19/18 04:42 Dose: 0.5 mg Potassium Chloride (Potassium Chloride 20 Meq/100 Ml) 20 meq in 100 mls @ 50 mls/hr IVPB Q2H [facility] Stop: 05/20/18 15:59 Last Admin: 05/20/18 13:48 Dose: 50 mls/hr Potassium Chloride 40 meq/ (Sodium Chloride) 1,020 mls @ 50 mls/hr IV .[id number] [facility] Last Admin: 05/20/18 13:00 Dose: 50 mls/hr Imipenem/Cilastatin Sodium 500 (mg/ Sodium Chloride) 100 mls @ 166.667 mls/hr IVPB Q6H [facility]; Protocol Potassium Phosphate 15 mmole/ (Sodium Chloride) 255 mls @ 42.5 mls/hr IVPB ONCE ONE Stop: 05/20/18 21:44 Insulin Aspart (Novolog) 0 unit SC ACHS [facility]; Protocol Ondansetron HCl (Zofran Inj) 4 mg IVP Q4H PRN PRN Reason: Nausea/Vomiting Last Admin: 05/19/18 21:30 Dose: 4 mg Pantoprazole Sodium (Protonix Inj) 40 mg IVP DAILY [facility] Last Admin: 05/20/18 10:56 Dose: 40 mg Potassium Chloride (K-Dur 20 Meq Er Tab) 20 meq PO DAILY [facility] Last Admin: 05/20/18 10:56 Dose: 20 meq - Labs Labs: 05/20/18 15:01 05/20/18 15:01 PT 14.8 SECONDS (9.7-12.2) H 05/17/18 06:32 INR 1.4 05/17/18 06:32 APTT 28 SECONDS (21-34) 05/17/18 06:32
--- NOTE | 2018-05-20 16:54 | CP.PCM.PN ---
Subjective - Date & Time of Evaluation Date of Evaluation: 05/20/18 Time of Evaluation: 11:10 - Subjective Subjective: patient seen and examined Denies shortness of breath Cough much improved Afebrile Objective - Vital Signs/Intake and Output Vital Signs (last 24 hours): Temp Pulse Resp BP Pulse Ox 97.8 F 65 16 136/59 L 94 L 05/20/18 16:00 05/20/18 16:03 05/20/18 16:03 05/20/18 16:03 05/20/18 16:03 Intake and Output: 05/20/18 05/20/18 06:59 18:59 Intake Total 2095 1475 Output Total 2190 2140 Balance -95 -665 - Medications Medications: Current Medications Carvedilol (Coreg) 25 mg PO BID [facility] Last Admin: 05/20/18 10:56 Dose: 25 mg Clopidogrel Bisulfate (Plavix) 75 mg PO DAILY [facility] Last Admin: 05/20/18 10:56 Dose: 75 mg Heparin Sodium (Porcine) (Heparin) 5,000 units SC Q8 [facility] Last Admin: 05/20/18 13:48 Dose: 5,000 units Home Med (Patient's Own Drops) 1 drop OU BID [facility] Last Admin: 05/20/18 10:57 Dose: 1 drop Hydromorphone HCl (Dilaudid) 0.5 mg IVP Q4H PRN PRN Reason: Pain, moderate (4-7) Last Admin: 05/19/18 04:42 Dose: 0.5 mg Potassium Chloride 40 meq/ (Sodium Chloride) 1,020 mls @ 50 mls/hr IV .[id number] [facility] Last Admin: 05/20/18 13:00 Dose: 50 mls/hr Imipenem/Cilastatin Sodium 500 (mg/ Sodium Chloride) 100 mls @ 166.667 mls/hr IVPB Q6H [facility]; Protocol Potassium Phosphate 15 mmole/ (Sodium Chloride) 255 mls @ 42.5 mls/hr IVPB ONCE ONE Stop: 05/20/18 21:44 Insulin Aspart (Novolog) 0 unit SC ACHS [facility]; Protocol Ondansetron HCl (Zofran Inj) 4 mg IVP Q4H PRN PRN Reason: Nausea/Vomiting Last Admin: 05/19/18 21:30 Dose: 4 mg Pantoprazole Sodium (Protonix Inj) 40 mg IVP DAILY [facility] Last Admin: 05/20/18 10:56 Dose: 40 mg Potassium Chloride (K-Dur 20 Meq Er Tab) 20 meq PO DAILY [facility] Last Admin: 05/20/18 10:56 Dose: 20 meq - Labs Labs: 05/20/18 15:01 05/20/18 15:01 PT 14.8 SECONDS (9.7-12.2) H 05/17/18 06:32 INR 1.4 05/17/18 06:32 APTT 28 SECONDS (21-34) 05/17/18 06:32 - Head Exam Head Exam: ATRAUMATIC, NORMOCEPHALIC - ENT Exam ENT Exam: Mucous Membranes Moist - Neck Exam Neck Exam: Normal Inspection - Respiratory Exam Respiratory Exam: Clear to Ausculation Bilateral - Cardiovascular Exam Cardiovascular Exam: REGULAR RHYTHM Assessment and Plan (1) Pneumonia Assessment & Plan: continue antibiotics for now Followup chest x-ray Status: Acute (2) SBO (small bowel obstruction) Status: Acute
[2018-05-21] MEDS: HYDROmorphone 0.5 mg/0.5 ml ISec IVP PRN ×2 (01:52→11:20)
[2018-05-21 06:12] LABS: BASO % 0.2 % (0.0-2.0); EOS % 0.4 % (0.0-4.0); HEMOGLOBIN 9.4 g/dL (11.0-16.0); LYMPH # 0.9 K/uL (1.0-4.3); LYMPH % 7.7 % (20.0-40.0); MEAN CELL VOLUME 80.1 fL (81.0-99.0); MEAN CORPUSCULAR HEMOGLOBIN 26.4 pg (27.0-31.0); MONO # 0.5 K/uL (0.0-0.8); MONO % 4.4 % (0.0-10.0); NEUT # 9.8 K/uL (1.8-7.0); NEUT % 87.3 % (50.0-75.0); PLATELET COUNT 227 K/uL (130-400); RBC 3.55 Mil/uL (3.80-5.20); RED CELL DISTRIBUTION WIDTH 17.2 % (11.5-14.5); WHITE BLOOD COUNT 11.2 K/uL (4.8-10.8)
[2018-05-21 06:32] LABS: ALB/GLOB RATIO 1.3 (1.0-2.1); ALBUMIN 3.1 g/dL (3.5-5.0); ALT/SGPT 18 U/L (9-52); AST/SGOT 11 U/L (14-36); BLOOD UREA NITROGEN 12 mg/dL (7-17); CALCIUM 7.9 mg/dl (8.6-10.4); GFR NON-AFRICAN AMERICAN > 60
[2018-05-21] MEDS: (Novolog) Insulin Aspart, Recombinant 100 u/ml 10 ml vial SC SCH ×4 (08:00→21:11)
[2018-05-21 08:57] LABS: ANISOCYTOSIS SLIGHT; BANDS 1 % (0-2); LYMPHOCYTE 4 % (20-40); MONOCYTE 3 % (0-10); NEUTROPHIL 92 % (50-75); PLATELET ESTIMATE NORMAL (NORMAL); TOTAL CELLS COUNTED 100
[2018-05-21 08:58] LABS: HYPOCHROMIC SLIGHT; OVALOCYTES SLIGHT; POLYCHROMIC SLIGHT
--- NOTE | 2018-05-21 10:18 | CP.PCM.PN ---
Subjective - Date & Time of Evaluation Date of Evaluation: 05/21/18 Time of Evaluation: 10:15 - Subjective Subjective: General Surgery Progress Note for Dr. Dobbs This 77F wa sen and examined this AM at bedside no acute events overnight. Patint reports improvment in pain. She denies chest pain or SOB. She is tolerating clear liquids requests regular diet. Dressing removed this AM. Objective - Vital Signs/Intake and Output Vital Signs (last 24 hours): Temp Pulse Resp BP Pulse Ox 98 F 60 14 173/75 H 100 05/21/18 04:00 05/21/18 06:00 05/21/18 06:00 05/21/18 05:27 05/21/18 06:00 Intake and Output: 05/21/18 05/21/18 06:59 18:59 Intake Total 750 Output Total 1000 Balance -250 - Medications Medications: Current Medications Amlodipine Besylate (Norvasc) 5 mg PO DAILY [facility] Carvedilol (Coreg) 25 mg PO BID [facility] Last Admin: 05/20/18 17:02 Dose: 25 mg Clopidogrel Bisulfate (Plavix) 75 mg PO DAILY [facility] Last Admin: 05/20/18 10:56 Dose: 75 mg Heparin Sodium (Porcine) (Heparin) 5,000 units SC Q8 [facility] Last Admin: 05/21/18 05:26 Dose: 5,000 units Home Med (Patient's Own Drops) 1 drop OU BID [facility] Last Admin: 05/20/18 17:01 Dose: 1 drop Hydromorphone HCl (Dilaudid) 0.5 mg IVP Q4H PRN PRN Reason: Pain, moderate (4-7) Last Admin: 05/21/18 01:52 Dose: 0.5 mg Potassium Chloride 40 meq/ (Sodium Chloride) 1,020 mls @ 50 mls/hr IV .[id number] [facility] Last Admin: 05/20/18 13:00 Dose: 50 mls/hr Imipenem/Cilastatin Sodium 500 (mg/ Sodium Chloride) 100 mls @ 166.667 mls/hr IVPB Q6H [facility]; Protocol Last Admin: 05/21/18 01:55 Dose: 166.667 mls/hr Magnesium Sulfate/Dextrose (Magnesium Sulfate 1 Gm/100 Ml D5w) 1 gm in 100 mls @ 200 mls/hr IVPB Q30M [facility] [place] Stop: 05/21/18 10:59 Insulin Aspart (Novolog) 0 unit SC ACHS [facility]; Protocol Last Admin: 05/21/18 08:00 Dose: Not Given Losartan Potassium (Cozaar) 50 mg PO DAILY [facility] [place] Ondansetron HCl (Zofran Inj) 4 mg IVP Q4H PRN PRN Reason: Nausea/Vomiting Last Admin: 05/19/18 21:30 Dose: 4 mg Pantoprazole Sodium (Protonix Inj) 40 mg IVP DAILY [facility] Last Admin: 05/20/18 10:56 Dose: 40 mg Potassium Chloride (K-Dur 20 Meq Er Tab) 20 meq PO DAILY [facility] Last Admin: 05/20/18 10:56 Dose: 20 meq - Labs Labs: 05/21/18 06:03 05/21/18 06:03 PT 14.8 SECONDS (9.7-12.2) H 05/17/18 06:32 INR 1.4 05/17/18 06:32 APTT 28 SECONDS (21-34) 05/17/18 06:32 - Constitutional Appears: Well, No Acute Distress - Head Exam Head Exam: ATRAUMATIC, NORMOCEPHALIC - Eye Exam Eye Exam: Normal appearance - ENT Exam ENT Exam: Mucous Membranes Moist - Respiratory Exam Respiratory Exam: NORMAL BREATHING PATTERN - Cardiovascular Exam Cardiovascular Exam: Tachycardia, RRR - GI/Abdominal Exam GI & Abdominal Exam: Soft, Tenderness (around midline incision ). absent: Distended, Rebound Additional comments: amalia drain in place with serosang output , iam in place wound edges well aproximated non erythematous non draining none tender - Neurological Exam Neurological Exam: Alert, Awake, Oriented x3 - Skin Skin Exam: Dry, Warm Assessment and Plan - Assessment and Plan (Free Text) Assessment: 77F s/p LAR with primary anastomosis & appendectomy for necrotic sigmoid mass; POD#4 Plan: - regular diet - encourage out of bed to chair & ambulation - pain management - f/u path - d/w Dr. Dilia Walsh PGY3
[2018-05-21] MEDS: Magnesium Sulfate 1 gm in D5W 1 GM/100 ML BAG IVPB SCH ×2 (11:21→11:56)
[2018-05-21] MEDS: Potassium Chloride 20 mEq ER Tab PO SCH (11:22)
[2018-05-21] MEDS: DORZOLAMIDE HCL OU SCH ×2 (11:25→17:36)
[2018-05-21] MEDS: TIMOLOL MALEATE OU SCH ×2 (11:25→17:36)
--- NOTE | 2018-05-21 11:27 | CP.CCUPN ---
CCU Subjective - Physician Review Subjective (Free Text): 05/21/18 11:23 Ban Burch PGY1 Progress note for Dr. Alston Pt was examined at bedside this morning. She reports improvement in her abdominal pain. She denies any chest pain, shortness of breath, nausea, vomiting, diarrhea, dysuria. Pt deemed stable for transfer to med/surg. CCU Objective - Vital Signs / Intake & Output Intake and Output (Last 8hrs): Intake & Output 05/20/18 05/21/18 05/21/18 22:59 06:59 14:59 Intake Total 1050 450 Output Total 330 1000 Balance 720 -550 Weight 175 lb Intake: Intake, IV Amount 800 450 Left Hand 550 450 Right Hand 250 Oral 200 Other 50 Output: Drainage 50 Right Abdomen 50 Urine 330 950 Urethral (Goyal) 330 Urine, Voided 950 Other: # Voids Urine, Voided 0 # Bowel Movements 0 - Physical Exam Head: Positive for: Atraumatic, Normocephalic Pupils: Positive for: PERRL Extroacular Muscles: Positive for: EOMI Conjunctiva: Positive for: Normal Mouth: Positive for: Moist Mucous Membranes Respiratory/Chest: Positive for: Clear to Auscultation, Good Air Exchange. Negative for: Respiratory Distress, Accessory Muscle Use, Wheezes, Rales, Rhonchi Cardiovascular: Positive for: Regular Rate and Rhythm, Normal S1, S2. Negative for: Murmurs, Rub, Gallop Abdomen: Positive for: Normal Bowel Sounds, Other (drain intact, w/ serosanginous fluid). Negative for: Tenderness, Distention, Peritoneal Signs Upper Extremity: Positive for: Normal Inspection. Negative for: Cyanosis, Edema Lower Extremity: Positive for: Normal Inspection. Negative for: Edema Neurological: Positive for: GCS=15, CN II-XII Intact, Speech Normal Skin: Positive for: Dry, Normal Color Psychiatric: Positive for: Alert, Oriented x 3 - Medications Active Medications: Active Medications Generic Name Dose Route Start Last Admin Trade Name Freq PRN Reason Stop Dose Admin Amlodipine Besylate 5 mg 05/21/18 10:00 Norvasc PO DAILY [facility] Carvedilol 25 mg 05/15/18 10:00 05/20/18 17:02 Coreg PO 25 mg BID [facility] Administration Clopidogrel Bisulfate 75 mg 05/18/18 10:00 05/20/18 10:56 Plavix PO 75 mg DAILY [facility] Administration Heparin Sodium (Porcine) 5,000 units 05/18/18 06:00 05/21/18 05:26 Heparin SC 5,000 units Q8 [facility] Administration Home Med 1 drop 05/15/18 18:00 05/20/18 17:01 Patient's Own Drops OU 1 drop BID [facility] Administration Hydromorphone HCl 0.5 mg 05/17/18 21:45 05/21/18 11:20 Dilaudid IVP 0.5 mg Q4H PRN Administration Pain, moderate (4-7) Imipenem/Cilastatin Sodium 500 100 mls @ 166.667 mls/hr 05/20/18 20:00 05/21/18 09:00 mg/ Sodium Chloride IVPB 166.667 mls/hr Q6H [facility] Administration Protocol Insulin Aspart 0 unit 05/20/18 16:30 05/21/18 08:00 Novolog SC Not Given ACHS [facility] Protocol Losartan Potassium 50 mg 05/21/18 10:00 Cozaar PO DAILY [facility] Ondansetron HCl 4 mg 05/17/18 03:52 05/19/18 21:30 Zofran Inj IVP 4 mg Q4H PRN Administration Nausea/Vomiting Pantoprazole Sodium 40 mg 05/15/18 10:00 05/21/18 11:21 Protonix Inj IVP 40 mg DAILY [facility] Administration Potassium Chloride 20 meq 05/19/18 10:00 05/20/18 10:56 K-Dur 20 Meq Er Tab PO 20 meq DAILY [facility] Administration - Patient Studies Lab Studies: Microbiology Studies 05/18/18 22:35 Blood Culture - Preliminary Blood-Venous NO GROWTH AFTER 48 HOURS 05/18/18 20:33 Blood Culture - Preliminary Blood-Venous NO GROWTH AFTER 48 HOURS 05/18/18 Unknown Urine Culture - Final Urine,Catheterized No Growth (<1,000 CFU/ML) Lab Studies 05/21/18 05/21/18 05/21/18 Range/Units 07:40 06:03 06:03 WBC 11.2 H (4.8-10.8) K/uL RBC 3.55 L (3.80-5.20) Mil/uL Hgb 9.4 L (11.0-16.0) g/dL Hct 28.4 L (34.0-47.0) % MCV 80.1 L (81.0-99.0) fL MCH 26.4 L (27.0-31.0) pg MCHC 33.0 (33.0-37.0) g/dL RDW 17.2 H (11.5-14.5) % Plt Count 227 (130-400) K/uL MPV 9.0 (7.2-11.7) fL Neut % (Auto) 87.3 H (50.0-75.0) % Lymph % (Auto) 7.7 L (20.0-40.0) % [place] % (Auto) 4.4 (0.0-10.0) % Eos % (Auto) 0.4 (0.0-4.0) % Baso % (Auto) 0.2 (0.0-2.0) % Neut # (Auto) 9.8 H (1.8-7.0) K/uL Lymph # (Auto) 0.9 L (1.0-4.3) K/uL [place] # (Auto) 0.5 (0.0-0.8) K/uL Eos # (Auto) 0.0 (0.0-0.7) K/uL Baso # (Auto) 0.0 (0.0-0.2) K/uL Neutrophils % (Manual) 92 H (50-75) % Band Neutrophils % 1 (0-2) % Lymphocytes % (Manual) 4 L (20-40) % Monocytes % (Manual) 3 (0-10) % Platelet Estimate Normal (NORMAL) Polychromasia Slight Hypochromasia (manual) Slight Anisocytosis (manual) Slight Ovalocytes Slight Sodium 132 (132-148) mmol/L Potassium 3.4 L (3.6-5.2) mmol/L Chloride 91 L (98-107) mmol/L Carbon Dioxide 31 H (22-30) mmol/L Anion Gap 12 (10-20) BUN 12 (7-17) mg/dL Creatinine 0.7 (0.7-1.2) mg/dL Est GFR ( Amer) > 60 Est GFR (Non-Af Amer) > 60 POC Glucose (mg/dL) 110 (65-110) mg/dL Random Glucose 127 H (65-105) mg/dL Calcium 7.9 L (8.6-10.4) mg/dl Phosphorus 3.0 (2.5-4.5) mg/dL Magnesium 1.5 L (1.6-2.3) mg/dL Total Bilirubin 0.8 (0.2-1.3) mg/dL AST 11 L D (14-36) U/L ALT 18 (9-52) U/L Alkaline Phosphatase 51 (38-126) U/L Total Protein 5.5 L (6.3-8.3) g/dL Albumin 3.1 L (3.5-5.0) g/dL Globulin 2.4 (2.2-3.9) gm/dL Albumin/Globulin Ratio 1.3 (1.0-2.1) 05/20/18 05/20/18 05/20/18 Range/Units 21:00 17:25 16:16 WBC (4.8-10.8) K/uL RBC (3.80-5.20) Mil/uL Hgb (11.0-16.0) g/dL Hct (34.0-47.0) % MCV (81.0-99.0) fL MCH (27.0-31.0) pg MCHC (33.0-37.0) g/dL RDW (11.5-14.5) % Plt Count (130-400) K/uL MPV (7.2-11.7) fL Neut % (Auto) (50.0-75.0) % Lymph % (Auto) (20.0-40.0) % [place] % (Auto) (0.0-10.0) % Eos % (Auto) (0.0-4.0) % Baso % (Auto) (0.0-2.0) % Neut # (Auto) (1.8-7.0) K/uL Lymph # (Auto) (1.0-4.3) K/uL [place] # (Auto) (0.0-0.8) K/uL Eos # (Auto) (0.0-0.7) K/uL Baso # (Auto) (0.0-0.2) K/uL Neutrophils % (Manual) (50-75) % Band Neutrophils % (0-2) % Lymphocytes % (Manual) (20-40) % Monocytes % (Manual) (0-10) % Platelet Estimate (NORMAL) Polychromasia Hypochromasia (manual) Anisocytosis (manual) Ovalocytes Sodium (132-148) mmol/L Potassium (3.6-5.2) mmol/L Chloride (98-107) mmol/L Carbon Dioxide (22-30) mmol/L Anion Gap (10-20) BUN (7-17) mg/dL Creatinine (0.7-1.2) mg/dL Est GFR ( Amer) Est GFR (Non-Af Amer) POC Glucose (mg/dL) 138 H 96 110 (65-110) mg/dL Random Glucose (65-105) mg/dL Calcium (8.6-10.4) mg/dl Phosphorus (2.5-4.5) mg/dL Magnesium (1.6-2.3) mg/dL Total Bilirubin (0.2-1.3) mg/dL AST (14-36) U/L ALT (9-52) U/L Alkaline Phosphatase (38-126) U/L Total Protein (6.3-8.3) g/dL Albumin (3.5-5.0) g/dL Globulin (2.2-3.9) gm/dL Albumin/Globulin Ratio (1.0-2.1) 05/20/18 05/20/18 05/20/18 Range/Units 15:01 15:01 12:19 WBC 15.6 H (4.8-10.8) K/uL RBC 3.79 L (3.80-5.20) Mil/uL Hgb 9.4 L (11.0-16.0) g/dL Hct 30.0 L (34.0-47.0) % MCV 79.3 L (81.0-99.0) fL MCH 24.9 L (27.0-31.0) pg MCHC 31.4 L (33.0-37.0) g/dL RDW 17.2 H (11.5-14.5) % Plt Count 256 (130-400) K/uL MPV 9.2 (7.2-11.7) fL Neut % (Auto) (50.0-75.0) % Lymph % (Auto) (20.0-40.0) % [place] % (Auto) (0.0-10.0) % Eos % (Auto) (0.0-4.0) % Baso % (Auto) (0.0-2.0) % Neut # (Auto) (1.8-7.0) K/uL Lymph # (Auto) (1.0-4.3) K/uL [place] # (Auto) (0.0-0.8) K/uL Eos # (Auto) (0.0-0.7) K/uL Baso # (Auto) (0.0-0.2) K/uL Neutrophils % (Manual) (50-75) % Band Neutrophils % (0-2) % Lymphocytes % (Manual) (20-40) % Monocytes % (Manual) (0-10) % Platelet Estimate (NORMAL) Polychromasia Hypochromasia (manual) Anisocytosis (manual) Ovalocytes Sodium 131 L (132-148) mmol/L Potassium 3.7 (3.6-5.2) mmol/L Chloride 88 L (98-107) mmol/L Carbon Dioxide 32 H (22-30) mmol/L Anion Gap 15 (10-20) BUN 10 (7-17) mg/dL Creatinine 0.9 (0.7-1.2) mg/dL Est GFR ( Amer) > 60 Est GFR (Non-Af Amer) > 60 POC Glucose (mg/dL) 166 H (65-110) mg/dL Random Glucose 120 H (65-105) mg/dL Calcium 8.2 L (8.6-10.4) mg/dl Phosphorus 2.4 L (2.5-4.5) mg/dL Magnesium 2.0 (1.6-2.3) mg/dL Total Bilirubin 1.1 (0.2-1.3) mg/dL AST 15 (14-36) U/L ALT 24 (9-52) U/L Alkaline Phosphatase 56 (38-126) U/L Total Protein 6.1 L (6.3-8.3) g/dL Albumin 3.5 (3.5-5.0) g/dL Globulin 2.7 (2.2-3.9) gm/dL Albumin/Globulin Ratio 1.3 (1.0-2.1) Laboratory Results - last 24 hr 12/03/2805/20/18 05/20/18 12:19 15:01 15:01 WBC 15.6 H RBC 3.79 L Hgb 9.4 L Hct 30.0 L MCV 79.3 L MCH 24.9 L MCHC 31.4 L RDW 17.2 H Plt Count 256 MPV 9.2 Neut % (Auto) Lymph % (Auto) [place] % (Auto) Eos % (Auto) Baso % (Auto) Neut # (Auto) Lymph # (Auto) [place] # (Auto) Eos # (Auto) Baso # (Auto) Neutrophils % (Manual) Band Neutrophils % Lymphocytes % (Manual) Monocytes % (Manual) Platelet Estimate Polychromasia Hypochromasia (manual) Anisocytosis (manual) Ovalocytes Sodium 131 L Potassium 3.7 Chloride 88 L Carbon Dioxide 32 H Anion Gap 15 BUN 10 Creatinine 0.9 Est GFR ( Amer) > 60 Est GFR (Non-Af Amer) > 60 POC Glucose (mg/dL) 166 H Random Glucose 120 H Calcium 8.2 L Phosphorus 2.4 L Magnesium 2.0 Total Bilirubin 1.1 AST 15 ALT 24 Alkaline Phosphatase 56 Total Protein 6.1 L Albumin 3.5 Globulin 2.7 Albumin/Globulin Ratio 1.3 05/20/18 05/20/18 05/20/18 16:16 17:25 21:00 WBC RBC Hgb Hct MCV MCH MCHC RDW Plt Count MPV Neut % (Auto) Lymph % (Auto) [place] % (Auto) Eos % (Auto) Baso % (Auto) Neut # (Auto) Lymph # (Auto) [place] # (Auto) Eos # (Auto) Baso # (Auto) Neutrophils % (Manual) Band Neutrophils % Lymphocytes % (Manual) Monocytes % (Manual) Platelet Estimate Polychromasia Hypochromasia (manual) Anisocytosis (manual) Ovalocytes Sodium Potassium Chloride Carbon Dioxide Anion Gap BUN Creatinine Est GFR ( Amer) Est GFR (Non-Af Amer) POC Glucose (mg/dL) 110 96 138 H Random Glucose Calcium Phosphorus Magnesium Total Bilirubin AST ALT Alkaline Phosphatase Total Protein Albumin Globulin Albumin/Globulin Ratio 05/21/18 05/21/18 05/21/18 06:03 06:03 07:40 WBC 11.2 H RBC 3.55 L Hgb 9.4 L Hct 28.4 L MCV 80.1 L MCH 26.4 L MCHC 33.0 RDW 17.2 H Plt Count 227 MPV 9.0 Neut % (Auto) 87.3 H Lymph % (Auto) 7.7 L [place] % (Auto) 4.4 Eos % (Auto) 0.4 Baso % (Auto) 0.2 Neut # (Auto) 9.8 H Lymph # (Auto) 0.9 L [place] # (Auto) 0.5 Eos # (Auto) 0.0 Baso # (Auto) 0.0 Neutrophils % (Manual) 92 H Band Neutrophils % 1 Lymphocytes % (Manual) 4 L Monocytes % (Manual) 3 Platelet Estimate Normal Polychromasia Slight Hypochromasia (manual) Slight Anisocytosis (manual) Slight Ovalocytes Slight Sodium 132 Potassium 3.4 L Chloride 91 L Carbon Dioxide 31 H Anion Gap 12 BUN 12 Creatinine 0.7 Est GFR ( Amer) > 60 Est GFR (Non-Af Amer) > 60 POC Glucose (mg/dL) 110 Random Glucose 127 H Calcium 7.9 L Phosphorus 3.0 Magnesium 1.5 L Total Bilirubin 0.8 AST 11 L D ALT 18 Alkaline Phosphatase 51 Total Protein 5.5 L Albumin 3.1 L Globulin 2.4 Albumin/Globulin Ratio 1.3 Fingerstick Blood Sugar Results: 110 Critical Care Progress Note - Nutrition Nutrition: Nutrition Category Date Time Status Liquid Diet [DIET] Diets 05/20/18 Breakfast Active
[2018-05-21] MEDS: Potassium Chloride 40 MEQ in Sodium Chloride 0.45% 1,000 ML IV SCH (11:57)
--- NOTE | 2018-05-21 12:50 | CP.PCM.PN ---
Subjective - Date & Time of Evaluation Date of Evaluation: 05/21/18 Time of Evaluation: 10:00 - Subjective Subjective: RENAL: seen and examined feels better pain reasonably controlled denies SOB. no chest pain pe: vs as below gen: nad sclera: anicteric op: clear neck: supple no thyromegaly cv: +S1+s2 no rub abd: trae drain, no appreciable organomegaly lungs: reduced bs at bases with rales ext: trace edema neuro: a+ox3 no focal defecit psych: flat skin no rash labs and imaging reviewed imp: ARF/ Colon mass/ ANemia / hypokalemia/ hypomagnesemia/hyponatremia plan: cr improved replete k - likely loss due to post atn diuresis avoid hypotension continue supportive measures replete K mag improved f/u path on colon mass transfusions per primary team d/c IVF. added losartan 50 mg/day Objective - Vital Signs/Intake and Output Vital Signs (last 24 hours): Temp Pulse Resp BP Pulse Ox 98 F 60 14 170/77 H 100 05/21/18 04:00 05/21/18 06:00 05/21/18 06:00 05/21/18 11:23 05/21/18 06:00 Intake and Output: 05/21/18 05/21/18 06:59 18:59 Intake Total 750 Output Total 1000 Balance -250 - Medications Medications: Current Medications Amlodipine Besylate (Norvasc) 5 mg PO DAILY [facility] Last Admin: 05/21/18 11:23 Dose: 5 mg Carvedilol (Coreg) 25 mg PO BID [facility] Last Admin: 05/21/18 11:23 Dose: 25 mg Clopidogrel Bisulfate (Plavix) 75 mg PO DAILY [facility] Last Admin: 05/21/18 11:23 Dose: 75 mg Heparin Sodium (Porcine) (Heparin) 5,000 units SC Q8 [facility] Last Admin: 05/21/18 05:26 Dose: 5,000 units Home Med (Patient's Own Drops) 1 drop OU BID [facility] Last Admin: 05/21/18 11:25 Dose: 1 drop Hydromorphone HCl (Dilaudid) 0.5 mg IVP Q4H PRN PRN Reason: Pain, moderate (4-7) Last Admin: 05/21/18 11:20 Dose: 0.5 mg Imipenem/Cilastatin Sodium 500 (mg/ Sodium Chloride) 100 mls @ 166.667 mls/hr IVPB Q6H [facility]; Protocol Last Admin: 05/21/18 09:00 Dose: 166.667 mls/hr Insulin Aspart (Novolog) 0 unit SC ACHS [facility]; Protocol Last Admin: 05/21/18 08:00 Dose: Not Given Losartan Potassium (Cozaar) 50 mg PO DAILY [facility] Last Admin: 05/21/18 11:22 Dose: 50 mg Ondansetron HCl (Zofran Inj) 4 mg IVP Q4H PRN PRN Reason: Nausea/Vomiting Last Admin: 05/19/18 21:30 Dose: 4 mg Pantoprazole Sodium (Protonix Inj) 40 mg IVP DAILY [facility] Last Admin: 05/21/18 11:21 Dose: 40 mg Potassium Chloride (K-Dur 20 Meq Er Tab) 20 meq PO DAILY [facility] Last Admin: 05/21/18 11:22 Dose: 20 meq - Labs Labs: 05/21/18 06:03 05/21/18 06:03 PT 14.8 SECONDS (9.7-12.2) H 05/17/18 06:32 INR 1.4 05/17/18 06:32 APTT 28 SECONDS (21-34) 05/17/18 06:32
--- NOTE | 2018-05-21 17:33 | CP.PCM.PN ---
Subjective - Date & Time of Evaluation Date of Evaluation: 05/21/18 Time of Evaluation: 14:00 - Subjective Subjective: Patient seen and examined at bedside, lying down comfortably. Afebrile and in no acute distress. Denies SOB, cough, chest pain, fever/chills WBC 11.2 on 05/21/18. Continue Abx Objective - Vital Signs/Intake and Output Vital Signs (last 24 hours): Temp Pulse Resp BP Pulse Ox 97.4 F L 62 14 109/52 L 94 L 05/21/18 16:00 05/21/18 16:03 05/21/18 16:03 05/21/18 16:03 05/21/18 16:03 Intake and Output: 05/21/18 05/21/18 06:59 18:59 Intake Total 750 Output Total 1000 Balance -250 - Medications Medications: Current Medications Amlodipine Besylate (Norvasc) 5 mg PO DAILY [facility] Last Admin: 05/21/18 11:23 Dose: 5 mg Carvedilol (Coreg) 25 mg PO BID [facility] Last Admin: 05/21/18 11:23 Dose: 25 mg Clopidogrel Bisulfate (Plavix) 75 mg PO DAILY [facility] Last Admin: 05/21/18 11:23 Dose: 75 mg Heparin Sodium (Porcine) (Heparin) 5,000 units SC Q8 [facility] Last Admin: 05/21/18 13:29 Dose: 5,000 units Home Med (Patient's Own Drops) 1 drop OU BID [facility] Last Admin: 05/21/18 11:25 Dose: 1 drop Hydromorphone HCl (Dilaudid) 0.5 mg IVP Q4H PRN PRN Reason: Pain, moderate (4-7) Last Admin: 05/21/18 11:20 Dose: 0.5 mg Imipenem/Cilastatin Sodium 500 (mg/ Sodium Chloride) 100 mls @ 166.667 mls/hr IVPB Q6H [facility]; Protocol Last Admin: 05/21/18 13:37 Dose: 166.667 mls/hr Insulin Aspart (Novolog) 0 unit SC ACHS [facility]; Protocol Last Admin: 05/21/18 12:30 Dose: Not Given Losartan Potassium (Cozaar) 50 mg PO DAILY [facility] Last Admin: 05/21/18 11:22 Dose: 50 mg Ondansetron HCl (Zofran Inj) 4 mg IVP Q4H PRN PRN Reason: Nausea/Vomiting Last Admin: 05/21/18 14:40 Dose: 4 mg Pantoprazole Sodium (Protonix Inj) 40 mg IVP DAILY [facility] Last Admin: 05/21/18 11:21 Dose: 40 mg Potassium Chloride (K-Dur 20 Meq Er Tab) 20 meq PO DAILY [facility] Last Admin: 05/21/18 11:22 Dose: 20 meq - Labs Labs: 05/21/18 06:03 05/21/18 06:03 PT 14.8 SECONDS (9.7-12.2) H 05/17/18 06:32 INR 1.4 05/17/18 06:32 APTT 28 SECONDS (21-34) 05/17/18 06:32 Assessment and Plan (1) Pneumonia Status: Acute (2) SBO (small bowel obstruction) Status: Acute
--- NOTE | 2018-05-21 18:51 | CP.PCM.PN ---
Subjective - Date & Time of Evaluation Date of Evaluation: 05/21/18 Time of Evaluation: 18:50 - Subjective Subjective: pale,but feels better. Objective - Vital Signs/Intake and Output Vital Signs (last 24 hours): Temp Pulse Resp BP Pulse Ox 97.4 F L 62 14 126/63 94 L 05/21/18 16:00 05/21/18 16:03 05/21/18 16:03 05/21/18 17:36 05/21/18 16:03 Intake and Output: 05/21/18 05/21/18 06:59 18:59 Intake Total 750 Output Total 1000 Balance -250 - Medications Medications: Current Medications Amlodipine Besylate (Norvasc) 5 mg PO DAILY [facility] Last Admin: 05/21/18 11:23 Dose: 5 mg Carvedilol (Coreg) 25 mg PO BID [facility] Last Admin: 05/21/18 17:36 Dose: 25 mg Clopidogrel Bisulfate (Plavix) 75 mg PO DAILY [facility] Last Admin: 05/21/18 11:23 Dose: 75 mg Heparin Sodium (Porcine) (Heparin) 5,000 units SC Q8 [facility] Last Admin: 05/21/18 13:29 Dose: 5,000 units Home Med (Patient's Own Drops) 1 drop OU BID [facility] Last Admin: 05/21/18 17:36 Dose: 1 drop Hydromorphone HCl (Dilaudid) 0.5 mg IVP Q4H PRN PRN Reason: Pain, moderate (4-7) Last Admin: 05/21/18 11:20 Dose: 0.5 mg Imipenem/Cilastatin Sodium 500 (mg/ Sodium Chloride) 100 mls @ 166.667 mls/hr IVPB Q6H [facility]; Protocol Last Admin: 05/21/18 13:37 Dose: 166.667 mls/hr Insulin Aspart (Novolog) 0 unit SC ACHS [facility]; Protocol Last Admin: 05/21/18 17:36 Dose: 1 unit Losartan Potassium (Cozaar) 50 mg PO DAILY [facility] Last Admin: 05/21/18 11:22 Dose: 50 mg Ondansetron HCl (Zofran Inj) 4 mg IVP Q4H PRN PRN Reason: Nausea/Vomiting Last Admin: 05/21/18 14:40 Dose: 4 mg Pantoprazole Sodium (Protonix Inj) 40 mg IVP DAILY [facility] Last Admin: 12/11/18 11:21 Dose: 40 mg Potassium Chloride (K-Dur 20 Meq Er Tab) 20 meq PO DAILY [facility] Last Admin: 05/21/18 11:22 Dose: 20 meq - Labs Labs: 05/21/18 06:03 05/21/18 06:03 PT 14.8 SECONDS (9.7-12.2) H 05/17/18 06:32 INR 1.4 05/17/18 06:32 APTT 28 SECONDS (21-34) 05/17/18 06:32 - Constitutional Appears: No Acute Distress, Chronically Ill - Head Exam Head Exam: NORMOCEPHALIC - Neck Exam Neck Exam: Normal Inspection - Respiratory Exam Respiratory Exam: Clear to Ausculation Bilateral - Cardiovascular Exam Cardiovascular Exam: REGULAR RHYTHM - GI/Abdominal Exam GI & Abdominal Exam: Soft - Neurological Exam Neurological Exam: Alert, Oriented x3 Assessment and Plan - Assessment and Plan (Free Text) Plan: s/p colon or.await bx report.
--- NOTE | 2018-05-21 19:25 | CP.PCM.PN ---
Subjective - Date & Time of Evaluation Date of Evaluation: 05/21/18 Time of Evaluation: 19:20 - Subjective Subjective: INFECTIOUS DISEASE ICU #9 PROGRESS NOTES POOJA CAREY MD, FACP ICU #9 05/21/2018 CHART REVIEWED PT EXAMINED CASE DISCUSSED CLINICALLY SLOWLY RESPONDING, APPEARS TO BE OUT OF SEPSIS NORMALIZING OF HER WBC AND DIFF, INCREASING K+, MAKING URINE HGB UP TO 9+ STILL BREATHING COMFORTABLY WITHOUT CLINICAL EVIDENCE OF OVERT ACUTE PNEUMONIA ON PRIMAXIN 500 Q 6 HOURS FULL LIQUIDS SLOWLY BEING CONSUMED. POOJA CAREY MD, FACP Objective - Vital Signs/Intake and Output Vital Signs (last 24 hours): Temp Pulse Resp BP Pulse Ox 97.4 F L 62 18 120/56 L 99 05/21/18 16:00 05/21/18 19:03 05/21/18 19:03 05/21/18 19:03 05/21/18 19:03 Intake and Output: 05/21/18 05/22/18 18:59 06:59 Intake Total 1000 Output Total 1005 Balance -5 - Medications Medications: Current Medications Amlodipine Besylate (Norvasc) 5 mg PO DAILY [facility] Last Admin: 05/21/18 11:23 Dose: 5 mg Carvedilol (Coreg) 25 mg PO BID [facility] Last Admin: 05/21/18 17:36 Dose: 25 mg Clopidogrel Bisulfate (Plavix) 75 mg PO DAILY [facility] Last Admin: 05/21/18 11:23 Dose: 75 mg Heparin Sodium (Porcine) (Heparin) 5,000 units SC Q8 [facility] Last Admin: 05/21/18 13:29 Dose: 5,000 units Home Med (Patient's Own Drops) 1 drop OU BID [facility] Last Admin: 05/21/18 17:36 Dose: 1 drop Hydromorphone HCl (Dilaudid) 0.5 mg IVP Q4H PRN PRN Reason: Pain, moderate (4-7) Last Admin: 05/21/18 11:20 Dose: 0.5 mg Imipenem/Cilastatin Sodium 500 (mg/ Sodium Chloride) 100 mls @ 166.667 mls/hr IVPB Q6H [facility]; Protocol Last Admin: 05/21/18 13:37 Dose: 166.667 mls/hr Insulin Aspart (Novolog) 0 unit SC ACHS [facility]; Protocol Last Admin: 05/21/18 17:36 Dose: 1 unit Losartan Potassium (Cozaar) 50 mg PO DAILY [facility] Last Admin: 05/21/18 11:22 Dose: 50 mg Ondansetron HCl (Zofran Inj) 4 mg IVP Q4H PRN PRN Reason: Nausea/Vomiting Last Admin: 05/21/18 14:40 Dose: 4 mg Pantoprazole Sodium (Protonix Inj) 40 mg IVP DAILY [facility] Last Admin: 05/21/18 11:21 Dose: 40 mg Potassium Chloride (K-Dur 20 Meq Er Tab) 20 meq PO DAILY [facility] Last Admin: 05/21/18 11:22 Dose: 20 meq - Labs Labs: 05/21/18 06:03 05/21/18 06:03 PT 14.8 SECONDS (9.7-12.2) H 05/17/18 06:32 INR 1.4 05/17/18 06:32 APTT 28 SECONDS (21-34) 05/17/18 06:32
[2018-05-22 05:48] LABS: BASO % 0.5 % (0.0-2.0); EOS # 0.1 K/uL (0.0-0.7); HEMOGLOBIN 10.7 g/dL (11.0-16.0); LYMPH # 1.2 K/uL (1.0-4.3); LYMPH % 12.7 % (20.0-40.0); MEAN CELL VOLUME 80.9 fL (81.0-99.0); MEAN CORPUSCULAR HGB CONC 32.1 g/dL (33.0-37.0); MEAN PLATELET VOLUME 9.3 fL (7.2-11.7); MONO # 0.7 K/uL (0.0-0.8); NEUT # 7.4 K/uL (1.8-7.0); NEUT % 78.8 % (50.0-75.0); RBC 4.1 Mil/uL (3.80-5.20); RED CELL DISTRIBUTION WIDTH 17.1 % (11.5-14.5); WHITE BLOOD COUNT 9.4 K/uL (4.8-10.8)
[2018-05-22 06:14] LABS: ALB/GLOB RATIO 1.2 (1.0-2.1); ALBUMIN 3.3 g/dL (3.5-5.0); ALT/SGPT 16 U/L (9-52); AST/SGOT 12 U/L (14-36); BLOOD UREA NITROGEN 13 mg/dL (7-17); CALCIUM 8.4 mg/dl (8.6-10.4); GFR NON-AFRICAN AMERICAN > 60
[2018-05-22] MEDS: (Novolog) Insulin Aspart, Recombinant 100 u/ml 10 ml vial SC SCH ×4 (07:45→21:59)
[2018-05-22] MEDS: Magnesium Sulfate 1 gm in D5W 1 GM/100 ML BAG IVPB SCH ×2 (10:08→11:04)
[2018-05-22] MEDS: Potassium Chloride 20 mEq ER Tab PO SCH ×2 (10:08→17:04)
[2018-05-22] MEDS: DORZOLAMIDE HCL OU SCH ×2 (10:09→17:07)
[2018-05-22] MEDS: TIMOLOL MALEATE OU SCH ×2 (10:09→17:07)
[2018-05-22] MEDS: HYDROmorphone 0.5 mg/0.5 ml ISec IVP PRN ×3 (11:03→23:49)
--- NOTE | 2018-05-22 12:40 | CP.PCM.PN ---
Subjective - Date & Time of Evaluation Date of Evaluation: 05/22/18 Time of Evaluation: 12:37 - Subjective Subjective: s/p colon resection Objective - Vital Signs/Intake and Output Vital Signs (last 24 hours): Temp Pulse Resp BP Pulse Ox 97.5 F L 61 17 140/50 L 98 05/22/18 04:00 05/22/18 04:00 05/22/18 04:00 05/22/18 09:42 05/22/18 04:00 Intake and Output: 05/22/18 05/22/18 06:59 18:59 Intake Total 340 Balance 340 - Medications Medications: Current Medications Amlodipine Besylate (Norvasc) 5 mg PO DAILY [facility] Last Admin: 05/22/18 09:42 Dose: 5 mg Carvedilol (Coreg) 25 mg PO BID [facility] Last Admin: 05/22/18 09:42 Dose: 25 mg Clopidogrel Bisulfate (Plavix) 75 mg PO DAILY [facility] Last Admin: 05/22/18 09:42 Dose: 75 mg Heparin Sodium (Porcine) (Heparin) 5,000 units SC Q8 [facility] Last Admin: 05/22/18 05:23 Dose: 5,000 units Home Med (Patient's Own Drops) 1 drop OU BID [facility] Last Admin: 05/22/18 10:09 Dose: 1 drop Hydromorphone HCl (Dilaudid) 0.5 mg IVP Q4H PRN PRN Reason: Pain, moderate (4-7) Last Admin: 05/22/18 11:03 Dose: 0.5 mg Imipenem/Cilastatin Sodium 500 (mg/ Sodium Chloride) 100 mls @ 166.667 mls/hr IVPB Q6H [facility]; Protocol Last Admin: 05/22/18 07:45 Dose: 166.667 mls/hr Insulin Aspart (Novolog) 0 unit SC ACHS [facility]; Protocol Last Admin: 05/22/18 11:46 Dose: 1 unit Losartan Potassium (Cozaar) 50 mg PO DAILY [facility] Last Admin: 05/22/18 09:42 Dose: 50 mg Ondansetron HCl (Zofran Inj) 4 mg IVP Q4H PRN PRN Reason: Nausea/Vomiting Last Admin: 05/21/18 14:40 Dose: 4 mg Pantoprazole Sodium (Protonix Inj) 40 mg IVP DAILY [facility] Last Admin: 05/22/18 09:42 Dose: 40 mg Potassium Chloride (K-Dur 20 Meq Er Tab) 40 meq PO BID [facility] Stop: 05/25/18 10:01 Last Admin: 05/22/18 10:08 Dose: 40 meq - Labs Labs: 05/22/18 05:42 05/22/18 05:42 PT 14.8 SECONDS (9.7-12.2) H 05/17/18 06:32 INR 1.4 05/17/18 06:32 APTT 28 SECONDS (21-34) 05/17/18 06:32 - Constitutional Appears: No Acute Distress, Chronically Ill - Head Exam Head Exam: NORMOCEPHALIC - Neck Exam Neck Exam: Normal Inspection - Respiratory Exam Respiratory Exam: Decreased Breath Sounds - Cardiovascular Exam Cardiovascular Exam: REGULAR RHYTHM - GI/Abdominal Exam GI & Abdominal Exam: Soft - Extremities Exam Extremities Exam: Pedal Edema - Neurological Exam Neurological Exam: Alert, Oriented x3 Assessment and Plan - Assessment and Plan (Free Text) Plan: s/p colon resection.await pathology repost.tele.
--- NOTE | 2018-05-22 14:25 | CP.PCM.PN ---
Subjective - Date & Time of Evaluation Date of Evaluation: 05/22/18 Time of Evaluation: 14:16 - Subjective Subjective: General Surgery Progress Note for Dr. Dobbs This 77F was seen and examined this AM at bedside no acute events overnight. Patient reports improvement in pain. She denies chest pain or SOB. She is tolerating clear liquids requests regular diet. Pain well controlled no new complaints at this time. Objective - Vital Signs/Intake and Output Vital Signs (last 24 hours): Temp Pulse Resp BP Pulse Ox 97.5 F L 61 17 140/50 L 98 05/22/18 04:00 05/22/18 04:00 05/22/18 04:00 05/22/18 09:42 05/22/18 04:00 Intake and Output: 05/22/18 05/22/18 06:59 18:59 Intake Total 340 Balance 340 - Medications Medications: Current Medications Amlodipine Besylate (Norvasc) 5 mg PO DAILY [facility] Last Admin: 05/22/18 09:42 Dose: 5 mg Carvedilol (Coreg) 25 mg PO BID [facility] Last Admin: 05/22/18 09:42 Dose: 25 mg Clopidogrel Bisulfate (Plavix) 75 mg PO DAILY [facility] Last Admin: 05/22/18 09:42 Dose: 75 mg Heparin Sodium (Porcine) (Heparin) 5,000 units SC Q8 [facility] Last Admin: 05/22/18 05:23 Dose: 5,000 units Home Med (Patient's Own Drops) 1 drop OU BID [facility] Last Admin: 05/22/18 10:09 Dose: 1 drop Hydromorphone HCl (Dilaudid) 0.5 mg IVP Q4H PRN PRN Reason: Pain, moderate (4-7) Last Admin: 05/22/18 11:03 Dose: 0.5 mg Imipenem/Cilastatin Sodium 500 (mg/ Sodium Chloride) 100 mls @ 166.667 mls/hr IVPB Q6H [facility]; Protocol Last Admin: 05/22/18 07:45 Dose: 166.667 mls/hr Insulin Aspart (Novolog) 0 unit SC ACHS [facility]; Protocol Last Admin: 05/22/18 11:46 Dose: 1 unit Losartan Potassium (Cozaar) 50 mg PO DAILY [facility] Last Admin: 05/22/18 09:42 Dose: 50 mg Ondansetron HCl (Zofran Inj) 4 mg IVP Q4H PRN PRN Reason: Nausea/Vomiting Last Admin: 05/21/18 14:40 Dose: 4 mg Pantoprazole Sodium (Protonix Inj) 40 mg IVP DAILY [facility] Last Admin: 05/22/18 09:42 Dose: 40 mg Potassium Chloride (K-Dur 20 Meq Er Tab) 40 meq PO BID [facility] Stop: 05/25/18 10:01 Last Admin: 05/22/18 10:08 Dose: 40 meq - Labs Labs: 05/22/18 05:42 05/22/18 05:42 PT 14.8 SECONDS (9.7-12.2) H 05/17/18 06:32 INR 1.4 05/17/18 06:32 APTT 28 SECONDS (21-34) 05/17/18 06:32 - Constitutional Appears: Well, No Acute Distress - Head Exam Head Exam: ATRAUMATIC, NORMOCEPHALIC - Eye Exam Eye Exam: Normal appearance - ENT Exam ENT Exam: Mucous Membranes Moist - Respiratory Exam Respiratory Exam: NORMAL BREATHING PATTERN - Cardiovascular Exam Cardiovascular Exam: Tachycardia, RRR - GI/Abdominal Exam GI & Abdominal Exam: Soft, Tenderness (around midline incision ). absent: Distended, Rebound Additional comments: amalia drain in place with serosang output , iam in place wound edges well aproximated non erythematous non draining none tender - Neurological Exam Neurological Exam: Alert, Awake, Oriented x3 - Skin Skin Exam: Dry, Warm Assessment and Plan - Assessment and Plan (Free Text) Assessment: 77F s/p LAR with primary anastomosis & appendectomy for necrotic sigmoid mass; POD#5 Plan: - regular diet - encourage out of bed to chair & ambulation - pain management - f/u path - d/w Dr. Dilia Walsh PGY3
--- NOTE | 2018-05-22 15:48 | CP.PCM.PN ---
Subjective - Date & Time of Evaluation Date of Evaluation: 05/22/18 Time of Evaluation: 10:00 - Subjective Subjective: RENAL Note: seen and examined feels better pain reasonably controlled denies SOB. no chest pain pe: vs as below gen: nad sclera: anicteric op: clear neck: supple no thyromegaly cv: +S1+s2 no rub abd: trae drain, no appreciable organomegaly lungs: reduced bs at bases with rales ext: trace edema neuro: a+ox3 no focal defecit psych: flat skin no rash labs and imaging reviewed imp: ARF/ Colon mass/ ANemia / hypokalemia/ hypomagnesemia/hyponatremia plan: cr improved replete k - likely loss due to post atn diuresis avoid hypotension continue supportive measures replete K mag improved f/u path on colon mass transfusions per primary team added losartan 50 mg/day Objective - Vital Signs/Intake and Output Vital Signs (last 24 hours): Temp Pulse Resp BP Pulse Ox 97.5 F L 68 19 162/63 H 83 L 05/22/18 04:00 05/22/18 09:54 05/22/18 09:54 05/22/18 09:54 05/22/18 09:54 Intake and Output: 05/22/18 05/22/18 06:59 18:59 Intake Total 340 575 Balance 340 575 - Medications Medications: Current Medications Amlodipine Besylate (Norvasc) 5 mg PO DAILY [facility] Last Admin: 05/22/18 09:42 Dose: 5 mg Carvedilol (Coreg) 25 mg PO BID [facility] Last Admin: 05/22/18 09:42 Dose: 25 mg Clopidogrel Bisulfate (Plavix) 75 mg PO DAILY [facility] Last Admin: 05/22/18 09:42 Dose: 75 mg Heparin Sodium (Porcine) (Heparin) 5,000 units SC Q8 [facility] Last Admin: 05/22/18 15:07 Dose: 5,000 units Home Med (Patient's Own Drops) 1 drop OU BID [facility] Last Admin: 05/22/18 10:09 Dose: 1 drop Hydromorphone HCl (Dilaudid) 0.5 mg IVP Q4H PRN PRN Reason: Pain, moderate (4-7) Last Admin: 05/22/18 11:03 Dose: 0.5 mg Imipenem/Cilastatin Sodium 500 (mg/ Sodium Chloride) 100 mls @ 166.667 mls/hr IVPB Q6H [facility]; Protocol Last Admin: 05/22/18 15:07 Dose: 166.667 mls/hr Insulin Aspart (Novolog) 0 unit SC ACHS [facility]; Protocol Last Admin: 05/22/18 11:46 Dose: 1 unit Losartan Potassium (Cozaar) 50 mg PO DAILY [facility] Last Admin: 05/22/18 09:42 Dose: 50 mg Ondansetron HCl (Zofran Inj) 4 mg IVP Q4H PRN PRN Reason: Nausea/Vomiting Last Admin: 05/21/18 14:40 Dose: 4 mg Pantoprazole Sodium (Protonix Inj) 40 mg IVP DAILY [facility] Last Admin: 05/22/18 09:42 Dose: 40 mg Potassium Chloride (K-Dur 20 Meq Er Tab) 40 meq PO BID [facility] Stop: 05/25/18 10:01 Last Admin: 05/22/18 10:08 Dose: 40 meq - Labs Labs: 05/22/18 05:42 05/22/18 05:42 PT 14.8 SECONDS (9.7-12.2) H 05/17/18 06:32 INR 1.4 05/17/18 06:32 APTT 28 SECONDS (21-34) 05/17/18 06:32
--- NOTE | 2018-05-22 15:57 | CP.PCM.PN ---
Subjective - Date & Time of Evaluation Date of Evaluation: 05/22/18 Time of Evaluation: 12:30 - Subjective Subjective: Patient seen and examined Denies shortness of breath Denies cough Afebrile Patient is awake and responsive Objective - Vital Signs/Intake and Output Vital Signs (last 24 hours): Temp Pulse Resp BP Pulse Ox 97.5 F L 68 19 162/63 H 83 L 05/22/18 04:00 05/22/18 09:54 05/22/18 09:54 05/22/18 09:54 05/22/18 09:54 Intake and Output: 05/22/18 05/22/18 06:59 18:59 Intake Total 340 575 Balance 340 575 - Medications Medications: Current Medications Amlodipine Besylate (Norvasc) 5 mg PO DAILY [facility] Last Admin: 05/22/18 09:42 Dose: 5 mg Carvedilol (Coreg) 25 mg PO BID [facility] Last Admin: 05/22/18 09:42 Dose: 25 mg Clopidogrel Bisulfate (Plavix) 75 mg PO DAILY [facility] Last Admin: 05/22/18 09:42 Dose: 75 mg Heparin Sodium (Porcine) (Heparin) 5,000 units SC Q8 [facility] Last Admin: 05/22/18 15:07 Dose: 5,000 units Home Med (Patient's Own Drops) 1 drop OU BID [facility] Last Admin: 05/22/18 10:09 Dose: 1 drop Hydromorphone HCl (Dilaudid) 0.5 mg IVP Q4H PRN PRN Reason: Pain, moderate (4-7) Last Admin: 05/22/18 11:03 Dose: 0.5 mg Imipenem/Cilastatin Sodium 500 (mg/ Sodium Chloride) 100 mls @ 166.667 mls/hr IVPB Q6H [facility]; Protocol Last Admin: 05/22/18 15:07 Dose: 166.667 mls/hr Insulin Aspart (Novolog) 0 unit SC ACHS [facility]; Protocol Last Admin: 05/22/18 11:46 Dose: 1 unit Losartan Potassium (Cozaar) 50 mg PO DAILY [facility] Last Admin: 05/22/18 09:42 Dose: 50 mg Ondansetron HCl (Zofran Inj) 4 mg IVP Q4H PRN PRN Reason: Nausea/Vomiting Last Admin: 05/21/18 14:40 Dose: 4 mg Pantoprazole Sodium (Protonix Inj) 40 mg IVP DAILY [facility] Last Admin: 05/22/18 09:42 Dose: 40 mg Potassium Chloride (K-Dur 20 Meq Er Tab) 40 meq PO BID [facility] Stop: 05/25/18 10:01 Last Admin: 05/22/18 10:08 Dose: 40 meq - Labs Labs: 05/22/18 05:42 05/22/18 05:42 PT 14.8 SECONDS (9.7-12.2) H 05/17/18 06:32 INR 1.4 05/17/18 06:32 APTT 28 SECONDS (21-34) 05/17/18 06:32 - Head Exam Head Exam: ATRAUMATIC, NORMOCEPHALIC - Eye Exam Eye Exam: Normal appearance - ENT Exam ENT Exam: Mucous Membranes Moist - Neck Exam Neck Exam: Normal Inspection - Respiratory Exam Respiratory Exam: Clear to Ausculation Bilateral - Cardiovascular Exam Cardiovascular Exam: REGULAR RHYTHM - GI/Abdominal Exam GI & Abdominal Exam: Soft, Normal Bowel Sounds Assessment and Plan (1) Pneumonia Status: Acute (2) SBO (small bowel obstruction) Status: Acute
--- NOTE | 2018-05-22 23:11 | CP.PCM.PN ---
Subjective - Date & Time of Evaluation Date of Evaluation: 05/22/18 Time of Evaluation: 23:06 - Subjective Subjective: NFECTIOUS DISEASE ICU #9 PROGRESS NOTES POOJA CAREY MD, FACP 05/22/2018 CHART REVIEWD EXAMINE APPRECIATED DISCUSSION NOTED denies SOB. no chest pain pe: vs as below gen: nad sclera: anicteric op: clear neck: supple no thyromegaly cv: +S1+s2 no rub abd: trae drain, no appreciable organomegaly lungs: reduced bs at bases with rales ext: trace edema neuro: a+ox3 no focal defecit psych: flat skin no rash labs and imaging reviewed imp: ARF/ Colon mass/ ANemia / hypokalemia/ hypomagnesemia/hyponatremia plan: cr improved replete k - likely loss due to post atn diuresis avoid hypotension continue supportive measures replete K mag improved f/u path on colon mass transfusions per primary team added losartan 50 mg/day Objective - Vital Signs/Intake and Output Vital Signs (last 24 hours): Temp Pulse Resp BP Pulse Ox 97.5 F L 68 19 162/63 H 83 L 05/22/18 04:00 05/22/18 09:54 05/22/18 09:54 05/22/18 09:54 05/22/18 09:54 Intake and Output: 05/22/18 05/22/18 06:59 18:59 Intake Total 340 575 Balance 340 575 - Medications Medications: Current Medications Amlodipine Besylate (Norvasc) 5 mg PO DAILY [facility] Last Admin: 05/22/18 09:42 Dose: 5 mg Carvedilol (Coreg) 25 mg PO BID [facility] Last Admin: 05/22/18 09:42 Dose: 25 mg Clopidogrel Bisulfate (Plavix) 75 mg PO DAILY [facility] Last Admin: 05/22/18 09:42 Dose: 75 mg Heparin Sodium (Porcine) (Heparin) 5,000 units SC Q8 [facility] Last Admin: 05/22/18 15:07 Dose: 5,000 units Home Med (Patient's Own Drops) 1 drop OU BID [facility] Last Admin: 05/22/18 10:09 Dose: 1 drop Hydromorphone HCl (Dilaudid) 0.5 mg IVP Q4H PRN PRN Reason: Pain, moderate (4-7) Last Admin: 05/22/18 11:03 Dose: 0.5 mg Imipenem/Cilastatin Sodium 500 (mg/ Sodium Chloride) 100 mls @ 166.667 mls/hr IVPB Q6H [facility]; Protocol Last Admin: 05/22/18 15:07 Dose: 166.667 mls/hr Insulin Aspart (Novolog) 0 unit SC ACHS [facility]; Protocol Last Admin: 05/22/18 11:46 Dose: 1 unit Losartan Potassium (Cozaar) 50 mg PO DAILY [facility] Last Admin: 05/22/18 09:42 Dose: 50 mg Ondansetron HCl (Zofran Inj) 4 mg IVP Q4H PRN PRN Reason: Nausea/Vomiting Last Admin: 05/21/18 14:40 Dose: 4 mg Pantoprazole Sodium (Protonix Inj) 40 mg IVP DAILY [facility] Last Admin: 05/22/18 09:42 Dose: 40 mg Potassium Chloride (K-Dur 20 Meq Er Tab) 40 meq PO BID [facility] Stop: 05/25/18 10:01 Last Admin: 05/22/18 10:08 Dose: 40 meq - Labs Labs: 05/22/18 05:42 05/22/18 05:42 PT 14.8 SECONDS (9.7-12.2) H 05/17/18 06:32 INR 1.4 05/17/18 06:32 APTT 28 SECONDS (21-34) 05/17/18 06:32 Objective - Vital Signs/Intake and Output Vital Signs (last 24 hours): Temp Pulse Resp BP Pulse Ox 97.4 F L 72 21 118/48 L 97 05/22/18 16:00 05/22/18 16:00 05/22/18 16:00 05/22/18 17:01 05/22/18 16:00 Intake and Output: 05/22/18 05/23/18 18:59 06:59 Intake Total 775 Output Total 450 Balance 325 - Medications Medications: Current Medications Amlodipine Besylate (Norvasc) 5 mg PO DAILY [facility] Last Admin: 05/22/18 09:42 Dose: 5 mg Carvedilol (Coreg) 25 mg PO BID [facility] Last Admin: 05/22/18 17:01 Dose: 25 mg Clopidogrel Bisulfate (Plavix) 75 mg PO DAILY [facility] Last Admin: 05/22/18 09:42 Dose: 75 mg Famotidine (Pepcid) 20 mg PO BID [facility] Heparin Sodium (Porcine) (Heparin) 5,000 units SC Q8 [facility] Last Admin: 05/22/18 21:48 Dose: 5,000 units Home Med (Patient's Own Drops) 1 drop OU BID [facility] Last Admin: 05/22/18 17:07 Dose: 1 drop Hydromorphone HCl (Dilaudid) 0.5 mg IVP Q4H PRN PRN Reason: Pain, moderate (4-7) Last Admin: 05/22/18 19:45 Dose: 0.5 mg Imipenem/Cilastatin Sodium 500 (mg/ Sodium Chloride) 100 mls @ 166.667 mls/hr IVPB Q6H [facility]; Protocol Last Admin: 05/22/18 20:25 Dose: 166.667 mls/hr Insulin Aspart (Novolog) 0 unit SC ACHS [facility]; Protocol Last Admin: 05/22/18 21:59 Dose: Not Given Losartan Potassium (Cozaar) 50 mg PO DAILY [facility] Last Admin: 05/22/18 09:42 Dose: 50 mg Ondansetron HCl (Zofran Inj) 4 mg IVP Q4H PRN PRN Reason: Nausea/Vomiting Last Admin: 05/21/18 14:40 Dose: 4 mg Potassium Chloride (K-Dur 20 Meq Er Tab) 40 meq PO BID [facility] Stop: 05/25/18 10:01 Last Admin: 05/22/18 17:04 Dose: 40 meq - Labs Labs: 05/22/18 05:42 05/22/18 05:42 PT 14.8 SECONDS (9.7-12.2) H 05/17/18 06:32 INR 1.4 05/17/18 06:32 APTT 28 SECONDS (21-34) 05/17/18 06:32
[2018-05-23] MEDS: HYDROmorphone 0.5 mg/0.5 ml ISec IVP PRN (03:55)
[2018-05-23 07:09] LABS: ALB/GLOB RATIO 1.1 (1.0-2.1); ALBUMIN 3.1 g/dL (3.5-5.0); ALT/SGPT 15 U/L (9-52); AST/SGOT 8 U/L (14-36); BLOOD UREA NITROGEN 15 mg/dL (7-17); CALCIUM 8.1 mg/dl (8.6-10.4); GFR NON-AFRICAN AMERICAN > 60
[2018-05-23 07:25] LABS: BASO % 0.2 % (0.0-2.0); EOS # 0.1 K/uL (0.0-0.7); EOS % 0.8 % (0.0-4.0); HEMOGLOBIN 10.7 g/dL (11.0-16.0); LYMPH # 1.4 K/uL (1.0-4.3); LYMPH % 12.6 % (20.0-40.0); MEAN CORPUSCULAR HEMOGLOBIN 25.6 pg (27.0-31.0); MEAN CORPUSCULAR HGB CONC 32.1 g/dL (33.0-37.0); MEAN PLATELET VOLUME 9.3 fL (7.2-11.7); MONO # 0.8 K/uL (0.0-0.8); MONO % 7.8 % (0.0-10.0); NEUT # 8.5 K/uL (1.8-7.0); NEUT % 78.6 % (50.0-75.0); NRBC % 0.1 % (0.0-2.0); RBC 4.17 Mil/uL (3.80-5.20); WHITE BLOOD COUNT 10.8 K/uL (4.8-10.8)
[2018-05-23] MEDS: (Novolog) Insulin Aspart, Recombinant 100 u/ml 10 ml vial SC SCH ×4 (07:30→22:01)
[2018-05-23] MEDS: TIMOLOL MALEATE OU SCH ×2 (09:05→17:47)
[2018-05-23] MEDS: DORZOLAMIDE HCL OU SCH ×2 (09:05→17:47)
--- NOTE | 2018-05-23 09:49 | CP.PCM.PN ---
Subjective - Date & Time of Evaluation Date of Evaluation: 05/23/18 Time of Evaluation: 06:50 - Subjective Subjective: Surgery Progress note. Dr. Dobbs Pt seen and examined at bedside. No acute events overnight. Denies any N/V. Has been having flatus, no BMs reported. Pain well tolerated. Prelim path consistent with carcinoma, awaiting final path Objective - Vital Signs/Intake and Output Vital Signs (last 24 hours): Temp Pulse Resp BP Pulse Ox 98.1 F 68 16 133/60 97 05/23/18 04:00 05/23/18 06:00 05/23/18 04:00 05/23/18 04:00 05/23/18 04:00 Intake and Output: 05/23/18 05/23/18 06:59 18:59 Intake Total 220 Output Total 240 Balance -20 - Medications Medications: Current Medications Amlodipine Besylate (Norvasc) 5 mg PO DAILY [facility] Last Admin: 05/22/18 09:42 Dose: 5 mg Carvedilol (Coreg) 25 mg PO BID [facility] Last Admin: 05/22/18 17:01 Dose: 25 mg Clopidogrel Bisulfate (Plavix) 75 mg PO DAILY [facility] Last Admin: 05/22/18 09:42 Dose: 75 mg Famotidine (Pepcid) 20 mg PO BID [facility] Heparin Sodium (Porcine) (Heparin) 5,000 units SC Q8 [facility] Last Admin: 05/23/18 05:00 Dose: 5,000 units Home Med (Patient's Own Drops) 1 drop OU BID [facility] Last Admin: 05/22/18 17:07 Dose: 1 drop Hydromorphone HCl (Dilaudid) 0.5 mg IVP Q4H PRN PRN Reason: Pain, moderate (4-7) Last Admin: 05/23/18 03:55 Dose: 0.5 mg Imipenem/Cilastatin Sodium 500 (mg/ Sodium Chloride) 100 mls @ 166.667 mls/hr IVPB Q6H [facility]; Protocol Last Admin: 05/23/18 09:00 Dose: 166.667 mls/hr Insulin Aspart (Novolog) 0 unit SC ACHS [facility]; Protocol Last Admin: 05/23/18 07:30 Dose: Not Given Losartan Potassium (Cozaar) 50 mg PO DAILY [facility] Last Admin: 05/22/18 09:42 Dose: 50 mg Ondansetron HCl (Zofran Inj) 4 mg IVP Q4H PRN PRN Reason: Nausea/Vomiting Last Admin: 05/21/18 14:40 Dose: 4 mg Potassium Chloride (K-Dur 20 Meq Er Tab) 40 meq PO BID [facility] Stop: 05/25/18 10:01 Last Admin: 05/22/18 17:04 Dose: 40 meq - Labs Labs: 05/23/18 06:49 05/23/18 06:49 PT 14.8 SECONDS (9.7-12.2) H 05/17/18 06:32 INR 1.4 05/17/18 06:32 APTT 28 SECONDS (21-34) 05/17/18 06:32 - Constitutional Appears: Well, Non-toxic, No Acute Distress - Head Exam Head Exam: ATRAUMATIC, NORMAL INSPECTION, NORMOCEPHALIC - Eye Exam Eye Exam: EOMI. absent: Scleral icterus - ENT Exam ENT Exam: Mucous Membranes Moist - Respiratory Exam Respiratory Exam: NORMAL BREATHING PATTERN. absent: Accessory Muscle Use, Respiratory Distress - Cardiovascular Exam Cardiovascular Exam: RRR. absent: JVD - GI/Abdominal Exam GI & Abdominal Exam: Soft. absent: Distended, Firm, Guarding, Rebound Additional comments: Incision clean, dry and intact. Drain in place with serrosang output - Extremities Exam Extremities Exam: Normal Inspection. absent: Calf Tenderness - Neurological Exam Neurological Exam: Alert, Awake, Oriented x3 - Psychiatric Exam Psychiatric exam: Normal Affect, Normal Mood - Skin Skin Exam: Dry, Intact, Normal Color, Warm Assessment and Plan - Assessment and Plan (Free Text) Assessment: 77yo F s/p LAR with primary anastomosis for necrotic sigmoid mass; Appendectomy. POD 6 Plan: - Tolerating regular diet - Encourage OOBTC. Ambulation. - Pain management - f/u final path results - Recommend Heme/Onc evaluation Further recs as per Dr. Dilia Madison PGY2 Surgery
[2018-05-23] MEDS: Potassium Chloride 20 mEq ER Tab PO SCH ×4 (09:52→17:50)
[2018-05-23] MEDS ORDERED: Oxycodone/Acetaminophen 5/325 mg Tab PO PRN (10:00)
--- NOTE | 2018-05-23 12:07 | CP.PCM.PN ---
Subjective - Date & Time of Evaluation Date of Evaluation: 05/23/18 Time of Evaluation: 12:06 - Subjective Subjective: RENAL Note: seen and examined feels better pain reasonably controlled denies SOB. no chest pain pe: vs as below gen: nad sclera: anicteric op: clear neck: supple no thyromegaly cv: +S1+s2 no rub abd: trae drain, no appreciable organomegaly lungs: reduced bs at bases with rales ext: 1+ edema neuro: a+ox3 no focal defecit psych: flat skin no rash labs and imaging reviewed imp: ARF/ Colon mass/ ANemia / hypokalemia/ hypomagnesemia/hyponatremia plan: cr improved replete k - likely loss due to post atn diuresis avoid hypotension continue supportive measures replete K mag improved f/u path on colon mass transfusions per primary team added losartan 50 mg/day started lasix 20 mg/day check UA, urine sodium and urine osmol. urine discoloration reported by RN today. Objective - Vital Signs/Intake and Output Vital Signs (last 24 hours): Temp Pulse Resp BP Pulse Ox 98.5 F 68 16 153/67 H 97 05/23/18 08:00 05/23/18 06:00 05/23/18 04:00 05/23/18 09:54 05/23/18 04:00 Intake and Output: 05/23/18 05/23/18 06:59 18:59 Intake Total 220 Output Total 240 Balance -20 - Medications Medications: Current Medications Amlodipine Besylate (Norvasc) 5 mg PO DAILY [facility] Last Admin: 05/23/18 09:52 Dose: 5 mg Carvedilol (Coreg) 25 mg PO BID [facility] Last Admin: 05/23/18 09:54 Dose: 25 mg Clopidogrel Bisulfate (Plavix) 75 mg PO DAILY [facility] Last Admin: 05/23/18 09:52 Dose: 75 mg Famotidine (Pepcid) 20 mg PO BID [facility] Last Admin: 05/23/18 09:53 Dose: 20 mg Furosemide (Lasix) 20 mg PO DAILY [facility] Heparin Sodium (Porcine) (Heparin) 5,000 units SC Q8 [facility] Last Admin: 05/23/18 05:00 Dose: 5,000 units Home Med (Patient's Own Drops) 1 drop OU BID [facility] Last Admin: 05/22/18 17:07 Dose: 1 drop Imipenem/Cilastatin Sodium 500 (mg/ Sodium Chloride) 100 mls @ 166.667 mls/hr IVPB Q6H [facility]; Protocol Last Admin: 05/23/18 09:00 Dose: 166.667 mls/hr Insulin Aspart (Novolog) 0 unit SC ACHS [facility]; Protocol Last Admin: 05/23/18 07:30 Dose: Not Given Losartan Potassium (Cozaar) 50 mg PO DAILY [facility] Last Admin: 05/23/18 09:53 Dose: 50 mg Ondansetron HCl (Zofran Inj) 4 mg IVP Q4H PRN PRN Reason: Nausea/Vomiting Last Admin: 05/21/18 14:40 Dose: 4 mg Oxycodone/Acetaminophen (Percocet 5/325 Mg Tab) 1 tab PO Q6H PRN PRN Reason: Pain, moderate (4-7) Stop: 05/26/18 10:01 Last Admin: 05/23/18 09:51 Dose: 1 tab Potassium Chloride (K-Dur 20 Meq Er Tab) 20 meq PO BID [facility] Stop: 05/25/18 10:01 - Labs Labs: 05/23/18 06:49 05/23/18 06:49 PT 14.8 SECONDS (9.7-12.2) H 05/17/18 06:32 INR 1.4 05/17/18 06:32 APTT 28 SECONDS (21-34) 05/17/18 06:32
--- NOTE | 2018-05-23 12:20 | CP.PCM.PN ---
Subjective - Date & Time of Evaluation Date of Evaluation: 05/23/18 Time of Evaluation: 12:17 - Subjective Subjective: COVERING DR. Abdoulaye DORADO. MEDICALLY STABLE. CHART REVIEWED. S/P COLON RESECTION. SMALL BOWEL OBST. PNEUMONIA. Objective - Vital Signs/Intake and Output Vital Signs (last 24 hours): Temp Pulse Resp BP Pulse Ox 98.5 F 68 16 153/67 H 97 05/23/18 08:00 05/23/18 06:00 05/23/18 04:00 05/23/18 09:54 05/23/18 04:00 Intake and Output: 05/23/18 05/23/18 06:59 18:59 Intake Total 220 Output Total 240 Balance -20 - Medications Medications: Current Medications Amlodipine Besylate (Norvasc) 5 mg PO DAILY [facility] Last Admin: 05/23/18 09:52 Dose: 5 mg Carvedilol (Coreg) 25 mg PO BID [facility] Last Admin: 05/23/18 09:54 Dose: 25 mg Clopidogrel Bisulfate (Plavix) 75 mg PO DAILY [facility] Last Admin: 05/23/18 09:52 Dose: 75 mg Famotidine (Pepcid) 20 mg PO BID [facility] Last Admin: 05/23/18 09:53 Dose: 20 mg Furosemide (Lasix) 20 mg PO DAILY [facility] Heparin Sodium (Porcine) (Heparin) 5,000 units SC Q8 [facility] Last Admin: 05/23/18 05:00 Dose: 5,000 units Home Med (Patient's Own Drops) 1 drop OU BID [facility] Last Admin: 05/22/18 17:07 Dose: 1 drop Imipenem/Cilastatin Sodium 500 (mg/ Sodium Chloride) 100 mls @ 166.667 mls/hr IVPB Q6H [facility]; Protocol Last Admin: 05/23/18 09:00 Dose: 166.667 mls/hr Insulin Aspart (Novolog) 0 unit SC ACHS [facility]; Protocol Last Admin: 05/23/18 07:30 Dose: Not Given Losartan Potassium (Cozaar) 50 mg PO DAILY [facility] Last Admin: 05/23/18 09:53 Dose: 50 mg Ondansetron HCl (Zofran Inj) 4 mg IVP Q4H PRN PRN Reason: Nausea/Vomiting Last Admin: 05/21/18 14:40 Dose: 4 mg Oxycodone/Acetaminophen (Percocet 5/325 Mg Tab) 1 tab PO Q6H PRN PRN Reason: Pain, moderate (4-7) Stop: 05/26/18 10:01 Last Admin: 05/23/18 09:51 Dose: 1 tab Potassium Chloride (K-Dur 20 Meq Er Tab) 20 meq PO BID [facility] Stop: 05/25/18 10:01 - Labs Labs: 05/23/18 06:49 05/23/18 06:49 PT 14.8 SECONDS (9.7-12.2) H 05/17/18 06:32 INR 1.4 05/17/18 06:32 APTT 28 SECONDS (21-34) 05/17/18 06:32 - Constitutional Appears: No Acute Distress, Chronically Ill - Eye Exam Eye Exam: PERRL - ENT Exam ENT Exam: Mucous Membranes Moist - Respiratory Exam Respiratory Exam: Clear to Ausculation Bilateral, NORMAL BREATHING PATTERN - Cardiovascular Exam Cardiovascular Exam: REGULAR RHYTHM, +S1, +S2 - GI/Abdominal Exam GI & Abdominal Exam: Soft, Normal Bowel Sounds - Extremities Exam Extremities Exam: Full ROM, Normal Capillary Refill, Normal Inspection. absent: Joint Swelling, Pedal Edema - Neurological Exam Neurological Exam: Alert, Awake, CN II-XII Intact, Normal Gait, Oriented x3 - Psychiatric Exam Psychiatric exam: Normal Affect, Normal Mood Assessment and Plan - Assessment and Plan (Free Text) Assessment: ABOVE. Plan: CT PRESENT TREATMENT. ICU CARE.
[2018-05-23 19:03] LABS: SQUAMOUS EPITHIAL < 1 /hpf (0-5); URINE BILIRUBIN 1+ (NEGATIVE); URINE BLOOD 1+ (NEGATIVE); URINE CLARITY Clear (Clear); URINE GLUCOSE (UA) 1+ mg/dL (Normal); URINE LEUKOCYTE ESTERASE TRACE Leu/uL (Negative); URINE PROTEIN 1+ mg/dL (NEGATIVE)
[2018-05-23 19:05] LABS: OSMOLALITY,URINE 427 mosm/kg (300-1000)
[2018-05-23 19:15] LABS: URINE COLOR YELLOW (YELLOW)
--- NOTE | 2018-05-23 20:11 | CP.PCM.PN ---
Subjective - Date & Time of Evaluation Date of Evaluation: 05/23/18 Time of Evaluation: 20:09 - Subjective Subjective: INFECTIOUS DISEASE ICU PROGRESS NOTES POOJA CAREY MD, FACP 05/23/2018 CHART REVIEWED PT EXAMINED CASE DISCUSSED MEDICALLY STABLE. S/P COLON RESECTION. SMALL BOWEL OBST. PNEUMONIA. Objective - Vital Signs/Intake and Output Vital Signs (last 24 hours): Temp Pulse Resp BP Pulse Ox 98.5 F 68 16 153/67 H 97 05/23/18 08:00 05/23/18 06:00 05/23/18 04:00 05/23/18 09:54 05/23/18 04:00 Intake and Output: 05/23/18 05/23/18 06:59 18:59 Intake Total 220 Output Total 240 Balance -20 - Medications Medications: Current Medications Amlodipine Besylate (Norvasc) 5 mg PO DAILY [facility] Last Admin: 05/23/18 09:52 Dose: 5 mg Carvedilol (Coreg) 25 mg PO BID [facility] Last Admin: 05/23/18 09:54 Dose: 25 mg Clopidogrel Bisulfate (Plavix) 75 mg PO DAILY [facility] Last Admin: 05/23/18 09:52 Dose: 75 mg Famotidine (Pepcid) 20 mg PO BID [facility] Last Admin: 05/23/18 09:53 Dose: 20 mg Furosemide (Lasix) 20 mg PO DAILY [facility] Heparin Sodium (Porcine) (Heparin) 5,000 units SC Q8 [facility] Last Admin: 05/23/18 05:00 Dose: 5,000 units Home Med (Patient's Own Drops) 1 drop OU BID [facility] Last Admin: 05/22/18 17:07 Dose: 1 drop Imipenem/Cilastatin Sodium 500 (mg/ Sodium Chloride) 100 mls @ 166.667 mls/hr IVPB Q6H [facility]; Protocol Last Admin: 05/23/18 09:00 Dose: 166.667 mls/hr Insulin Aspart (Novolog) 0 unit SC ACHS [facility]; Protocol Last Admin: 05/23/18 07:30 Dose: Not Given Losartan Potassium (Cozaar) 50 mg PO DAILY [facility] Last Admin: 05/23/18 09:53 Dose: 50 mg Ondansetron HCl (Zofran Inj) 4 mg IVP Q4H PRN PRN Reason: Nausea/Vomiting Last Admin: 05/21/18 14:40 Dose: 4 mg Oxycodone/Acetaminophen (Percocet 5/325 Mg Tab) 1 tab PO Q6H PRN PRN Reason: Pain, moderate (4-7) Stop: 05/26/18 10:01 Last Admin: 05/23/18 09:51 Dose: 1 tab Potassium Chloride (K-Dur 20 Meq Er Tab) 20 meq PO BID [facility] Stop: 05/25/18 10:01 - Labs Labs: 05/23/18 06:49 05/23/18 06:49 PT 14.8 SECONDS (9.7-12.2) H 05/17/18 06:32 INR 1.4 05/17/18 06:32 APTT 28 SECONDS (21-34) 05/17/18 06:32 - Constitutional Appears: No Acute Distress, Chronically Ill - Eye Exam Eye Exam: PERRL - ENT Exam ENT Exam: Mucous Membranes Moist - Respiratory Exam Respiratory Exam: Clear to Ausculation Bilateral, NORMAL BREATHING PATTERN - Cardiovascular Exam Cardiovascular Exam: REGULAR RHYTHM, +S1, +S2 - GI/Abdominal Exam GI & Abdominal Exam: Soft, Normal Bowel Sounds - Extremities Exam Extremities Exam: Full ROM, Normal Capillary Refill, Normal Inspection. absent: Joint Swelling, Pedal Edema - Neurological Exam Neurological Exam: Alert, Awake, CN II-XII Intact, Normal Gait, Oriented x3 - Psychiatric Exam Psychiatric exam: Normal Affect, Normal Mood Assessment and Plan - Assessment and Plan (Free Text) Assessment: ABOVE. Plan: CT PRESENT TREATMENT. ICU CARE. Objective - Vital Signs/Intake and Output Vital Signs (last 24 hours): Temp Pulse Resp BP Pulse Ox 98.5 F 75 16 140/75 98 05/23/18 16:00 05/23/18 16:00 05/23/18 16:00 05/23/18 17:47 05/23/18 16:00 Intake and Output: 05/23/18 05/24/18 18:59 06:59 Intake Total 580 Output Total 630 Balance -50 - Medications Medications: Current Medications Amlodipine Besylate (Norvasc) 5 mg PO DAILY [facility] Last Admin: 05/23/18 09:52 Dose: 5 mg Carvedilol (Coreg) 25 mg PO BID [facility] Last Admin: 05/23/18 17:47 Dose: 25 mg Clopidogrel Bisulfate (Plavix) 75 mg PO DAILY [facility] Last Admin: 05/23/18 09:52 Dose: 75 mg Famotidine (Pepcid) 20 mg PO BID [facility] Last Admin: 05/23/18 17:45 Dose: 20 mg Furosemide (Lasix) 20 mg PO DAILY [facility] Last Admin: 05/23/18 13:45 Dose: 20 mg Heparin Sodium (Porcine) (Heparin) 5,000 units SC Q8 [facility] Last Admin: 05/23/18 14:14 Dose: 5,000 units Home Med (Patient's Own Drops) 1 drop OU BID [facility] Last Admin: 05/23/18 17:47 Dose: 1 drop Imipenem/Cilastatin Sodium 500 (mg/ Sodium Chloride) 100 mls @ 166.667 mls/hr IVPB Q6H [facility]; Protocol Last Admin: 05/23/18 14:13 Dose: 166.667 mls/hr Insulin Aspart (Novolog) 0 unit SC ACHS [facility]; Protocol Last Admin: 05/23/18 17:30 Dose: 1 unit Losartan Potassium (Cozaar) 50 mg PO DAILY [facility] Last Admin: 05/23/18 09:53 Dose: 50 mg Morphine Sulfate (Morphine) 2 mg IVP Q4 PRN PRN Reason: Pain, moderate (4-7) Last Admin: 05/23/18 14:27 Dose: 2 mg Ondansetron HCl (Zofran Inj) 4 mg IVP Q4H PRN PRN Reason: Nausea/Vomiting Last Admin: 05/23/18 17:45 Dose: 4 mg Potassium Chloride (K-Dur 20 Meq Er Tab) 20 meq PO BID [facility] Stop: 05/25/18 12:31 Last Admin: 05/23/18 17:50 Dose: Not Given - Labs Labs: 05/23/18 06:49 05/23/18 06:49 PT 14.8 SECONDS (9.7-12.2) H 05/17/18 06:32 INR 1.4 05/17/18 06:32 APTT 28 SECONDS (21-34) 05/17/18 06:32
[2018-05-24 05:49] LABS: BASO # 0.1 K/uL (0.0-0.2); BASO % 0.6 % (0.0-2.0); EOS # 0.1 K/uL (0.0-0.7); EOS % 1.1 % (0.0-4.0); HEMOGLOBIN 10.8 g/dL (11.0-16.0); LYMPH # 1.5 K/uL (1.0-4.3); LYMPH % 14.1 % (20.0-40.0); MEAN CELL VOLUME 80.4 fL (81.0-99.0); MEAN CORPUSCULAR HEMOGLOBIN 26.5 pg (27.0-31.0); MEAN PLATELET VOLUME 9.3 fL (7.2-11.7); MONO # 0.8 K/uL (0.0-0.8); MONO % 7.1 % (0.0-10.0); NEUT # 8.3 K/uL (1.8-7.0); NEUT % 77.1 % (50.0-75.0); RBC 4.07 Mil/uL (3.80-5.20); RED CELL DISTRIBUTION WIDTH 16.9 % (11.5-14.5); WHITE BLOOD COUNT 10.8 K/uL (4.8-10.8)
[2018-05-24 06:21] LABS: ALB/GLOB RATIO 1.1 (1.0-2.1); ALBUMIN 3.1 g/dL (3.5-5.0); ALT/SGPT 16 U/L (9-52); AST/SGOT 14 U/L (14-36); BLOOD UREA NITROGEN 16 mg/dL (7-17); CALCIUM 8.2 mg/dl (8.6-10.4); GFR NON-AFRICAN AMERICAN > 60
[2018-05-24] MEDS: (Novolog) Insulin Aspart, Recombinant 100 u/ml 10 ml vial SC SCH ×4 (07:32→21:23)
[2018-05-24 08:29] VITALS: RESP 20
[2018-05-24] MEDS: Potassium Chloride 20 mEq ER Tab PO SCH ×2 (09:08→17:45)
--- NOTE | 2018-05-24 10:08 | CP.PCM.PN ---
Subjective - Date & Time of Evaluation Date of Evaluation: 05/24/18 Time of Evaluation: 10:05 - Subjective Subjective: General Surgery Progress Note for Dr. Dobbs This 77F was seen and examined this AM at bedside no acute events overnight. Awaiting final pathology. She denies chest pain or SOB. She is tolerating regular diet. Pain well controlled no new complaints at this time. LISA with serosanguinous drainag Objective - Vital Signs/Intake and Output Vital Signs (last 24 hours): Temp Pulse Resp BP Pulse Ox 98.1 F 66 20 147/86 99 05/24/18 07:00 05/24/18 07:00 05/24/18 07:00 05/24/18 09:08 05/24/18 07:00 - Medications Medications: Current Medications Amlodipine Besylate (Norvasc) 5 mg PO DAILY [facility] Last Admin: 05/24/18 09:07 Dose: 5 mg Carvedilol (Coreg) 25 mg PO BID [facility] Last Admin: 05/23/18 17:47 Dose: 25 mg Clopidogrel Bisulfate (Plavix) 75 mg PO DAILY [facility] Last Admin: 05/24/18 09:08 Dose: 75 mg Famotidine (Pepcid) 20 mg PO BID [facility] Last Admin: 05/24/18 09:08 Dose: 20 mg Furosemide (Lasix) 20 mg PO DAILY [facility] Last Admin: 05/24/18 09:08 Dose: 20 mg Heparin Sodium (Porcine) (Heparin) 5,000 units SC Q8 [facility] Last Admin: 05/24/18 05:47 Dose: 5,000 units Home Med (Patient's Own Drops) 1 drop OU BID [facility] Last Admin: 05/23/18 17:47 Dose: 1 drop Imipenem/Cilastatin Sodium 500 (mg/ Sodium Chloride) 100 mls @ 166.667 mls/hr IVPB Q6H [facility]; Protocol Last Admin: 05/24/18 08:53 Dose: 166.667 mls/hr Insulin Aspart (Novolog) 0 unit SC ACHS [facility]; Protocol Last Admin: 05/24/18 07:32 Dose: 6 unit Losartan Potassium (Cozaar) 50 mg PO DAILY [facility] Last Admin: 05/24/18 09:08 Dose: 50 mg Morphine Sulfate (Morphine) 2 mg IVP Q4 PRN PRN Reason: Pain, moderate (4-7) Last Admin: 05/24/18 08:36 Dose: 2 mg Ondansetron HCl (Zofran Inj) 4 mg IVP Q4H PRN PRN Reason: Nausea/Vomiting Last Admin: 05/23/18 17:45 Dose: 4 mg Potassium Chloride (K-Dur 20 Meq Er Tab) 20 meq PO BID [facility] Stop: 05/25/18 12:31 Last Admin: 05/24/18 09:08 Dose: 20 meq - Labs Labs: 05/24/18 05:43 05/24/18 05:43 PT 14.8 SECONDS (9.7-12.2) H 05/17/18 06:32 INR 1.4 05/17/18 06:32 APTT 28 SECONDS (21-34) 05/17/18 06:32 - Constitutional Appears: Well, No Acute Distress - Head Exam Head Exam: ATRAUMATIC, NORMOCEPHALIC - Eye Exam Eye Exam: Normal appearance - ENT Exam ENT Exam: Mucous Membranes Moist - Respiratory Exam Respiratory Exam: NORMAL BREATHING PATTERN - Cardiovascular Exam Cardiovascular Exam: Tachycardia, RRR - GI/Abdominal Exam GI & Abdominal Exam: Soft, Tenderness (around midline incision ). absent: Distended, Rebound Additional comments: amalia drain in place with serosang output , iam in place wound edges well aproximated non erythematous non draining none tender - Neurological Exam Neurological Exam: Alert, Awake, Oriented x3 - Skin Skin Exam: Dry, Warm Assessment and Plan - Assessment and Plan (Free Text) Assessment: 77F s/p LAR with primary anastomosis & appendectomy for necrotic sigmoid mass; POD#57 Plan: - regular diet - Ambulation - pain management - f/u path - Remove drain - d/w Dr. Dilia Walsh PGY3
[2018-05-24] MEDS: TIMOLOL MALEATE OU SCH (11:13)
[2018-05-24] MEDS: DORZOLAMIDE HCL OU SCH (11:13)
--- NOTE | 2018-05-24 11:52 | CP.PCM.PN ---
Subjective - Date & Time of Evaluation Date of Evaluation: 05/24/18 Time of Evaluation: 11:46 - Subjective Subjective: CONDITION REMAINS SAME. TRANSFERED TO . GENERAL DEBILITY. AWAKE. S/P OBSTRUCTION. VS WNL. Objective - Vital Signs/Intake and Output Vital Signs (last 24 hours): Temp Pulse Resp BP Pulse Ox 98.1 F 66 20 147/86 99 05/24/18 07:00 05/24/18 07:00 05/24/18 07:00 05/24/18 10:06 05/24/18 07:00 - Medications Medications: Current Medications Amlodipine Besylate (Norvasc) 5 mg PO DAILY [facility] Last Admin: 05/24/18 09:07 Dose: 5 mg Carvedilol (Coreg) 25 mg PO BID [facility] Last Admin: 05/24/18 10:06 Dose: 25 mg Clopidogrel Bisulfate (Plavix) 75 mg PO DAILY [facility] Last Admin: 05/24/18 09:08 Dose: 75 mg Dorzolamide HCl (Trusopt) 0.05 ml OU BID [facility] Famotidine (Pepcid) 20 mg PO BID [facility] Last Admin: 05/24/18 09:08 Dose: 20 mg Furosemide (Lasix) 20 mg PO DAILY [facility] Last Admin: 05/24/18 09:08 Dose: 20 mg Heparin Sodium (Porcine) (Heparin) 5,000 units SC Q8 [facility] Last Admin: 05/24/18 05:47 Dose: 5,000 units Imipenem/Cilastatin Sodium 500 (mg/ Sodium Chloride) 100 mls @ 166.667 mls/hr IVPB Q6H [facility]; Protocol Last Admin: 05/24/18 08:53 Dose: 166.667 mls/hr Insulin Aspart (Novolog) 0 unit SC ACHS [facility]; Protocol Last Admin: 05/24/18 07:32 Dose: 6 unit Losartan Potassium (Cozaar) 50 mg PO DAILY [facility] Last Admin: 05/24/18 09:08 Dose: 50 mg Morphine Sulfate (Morphine) 2 mg IVP Q4 PRN PRN Reason: Pain, moderate (4-7) Last Admin: 05/24/18 08:36 Dose: 2 mg Ondansetron HCl (Zofran Inj) 4 mg IVP Q4H PRN PRN Reason: Nausea/Vomiting Last Admin: 05/23/18 17:45 Dose: 4 mg Potassium Chloride (K-Dur 20 Meq Er Tab) 20 meq PO BID [facility] Stop: 05/25/18 12:31 Last Admin: 05/24/18 09:08 Dose: 20 meq Timolol Maleate (Timoptic 0.5% Ophth Soln) 1 drop OU BID [facility] - Labs Labs: 05/24/18 05:43 05/24/18 05:43 PT 14.8 SECONDS (9.7-12.2) H 05/17/18 06:32 INR 1.4 05/17/18 06:32 APTT 28 SECONDS (21-34) 05/17/18 06:32 - Constitutional Appears: No Acute Distress, Chronically Ill - Eye Exam Eye Exam: PERRL - ENT Exam ENT Exam: Mucous Membranes Moist - Respiratory Exam Respiratory Exam: Clear to Ausculation Bilateral, NORMAL BREATHING PATTERN - Cardiovascular Exam Cardiovascular Exam: REGULAR RHYTHM, +S1, +S2 - GI/Abdominal Exam GI & Abdominal Exam: Soft, Normal Bowel Sounds - Extremities Exam Extremities Exam: Full ROM, Normal Capillary Refill, Normal Inspection. absent: Joint Swelling, Pedal Edema - Back Exam Back Exam: NORMAL INSPECTION - Neurological Exam Neurological Exam: Alert, Awake, CN II-XII Intact, Normal Gait, Oriented x3 Assessment and Plan - Assessment and Plan (Free Text) Assessment: SAME. Plan: CT PRESENT TREATMENT.
[2018-05-24] MEDS: Magnesium Sulfate 1 gm in D5W 1 GM/100 ML BAG IVPB SCH ×2 (13:09→13:32)
--- NOTE | 2018-05-24 13:30 | CP.PCM.PN ---
Subjective - Date & Time of Evaluation Date of Evaluation: 05/24/18 Time of Evaluation: 08:00 - Subjective Subjective: Patient seen and examined at bedside, lying down comfortably. Afebrile and in no acute distress. Denies SOB, cough, fever/chills, chest pain Gram stain showed many polymorphonuclear WBCs and few gram positive cocci. Sputum cultures pending Continue therapy. Stable from pulmonary standpoint, will sign off Objective - Vital Signs/Intake and Output Vital Signs (last 24 hours): Temp Pulse Resp BP Pulse Ox 98.1 F 66 20 147/86 99 05/24/18 07:00 05/24/18 07:00 05/24/18 07:00 05/24/18 10:06 05/24/18 07:00 - Medications Medications: Current Medications Amlodipine Besylate (Norvasc) 5 mg PO DAILY [facility] Last Admin: 05/24/18 09:07 Dose: 5 mg Carvedilol (Coreg) 25 mg PO BID [facility] Last Admin: 05/24/18 10:06 Dose: 25 mg Clopidogrel Bisulfate (Plavix) 75 mg PO DAILY [facility] Last Admin: 05/24/18 09:08 Dose: 75 mg Dorzolamide HCl (Trusopt) 0.05 ml OU BID [facility] Famotidine (Pepcid) 20 mg PO BID [facility] Last Admin: 05/24/18 09:08 Dose: 20 mg Furosemide (Lasix) 20 mg PO DAILY [facility] Last Admin: 05/24/18 09:08 Dose: 20 mg Heparin Sodium (Porcine) (Heparin) 5,000 units SC Q8 [facility] Last Admin: 05/24/18 05:47 Dose: 5,000 units Imipenem/Cilastatin Sodium 500 (mg/ Sodium Chloride) 100 mls @ 166.667 mls/hr I VPB Q6H [facility]; Protocol Last Admin: 05/24/18 08:53 Dose: 166.667 mls/hr Magnesium Sulfate/Dextrose (Magnesium Sulfate 1 Gm/100 Ml D5w) 1 gm in 100 mls @ 300 mls/hr IVPB Q30M [facility] Stop: 05/24/18 13:49 Last Admin: 05/24/18 13:09 Dose: 300 mls/hr Insulin Aspart (Novolog) 0 unit SC ACHS [facility]; Protocol Last Admin: 05/24/18 11:50 Dose: 1 unit Losartan Potassium (Cozaar) 50 mg PO DAILY [facility] Last Admin: 05/24/18 09:08 Dose: 50 mg Magnesium Oxide (Mag-Ox) 400 mg PO BID [facility] Morphine Sulfate (Morphine) 2 mg IVP Q4 PRN PRN Reason: Pain, moderate (4-7) Last Admin: 05/24/18 08:36 Dose: 2 mg Ondansetron HCl (Zofran Inj) 4 mg IVP Q4H PRN PRN Reason: Nausea/Vomiting Last Admin: 05/23/18 17:45 Dose: 4 mg Potassium Chloride (K-Dur 20 Meq Er Tab) 20 meq PO BID [facility] Stop: 05/29/18 18:01 Timolol Maleate (Timoptic 0.5% Oph Soln) 1 drop OU BID [facility] - Labs Labs: 05/24/18 05:43 05/24/18 05:43 PT 14.8 SECONDS (9.7-12.2) H 05/17/18 06:32 INR 1.4 05/17/18 06:32 APTT 28 SECONDS (21-34) 05/17/18 06:32 Assessment and Plan (1) Pneumonia Status: Acute (2) SBO (small bowel obstruction) Status: Acute
--- NOTE | 2018-05-24 14:34 | CP.PCM.PN ---
Subjective - Date & Time of Evaluation Date of Evaluation: 05/24/18 Time of Evaluation: 14:33 - Subjective Subjective: RENAL Note: seen and examined feels better pain reasonably controlled denies SOB. no chest pain pe: vs as below gen: nad sclera: anicteric op: clear neck: supple no thyromegaly cv: +S1+s2 no rub abd: trae drain, no appreciable organomegaly lungs: reduced bs at bases with rales ext: 1+ edema neuro: a+ox3 no focal defecit psych: flat skin no rash labs and imaging reviewed imp: ARF/ Colon mass/ ANemia / hypokalemia/ hypomagnesemia/hyponatremia ? SIADH with elevated urine osmol and Na plan: cr improved supplement lytes as ordered f/u path on colon mass transfusions per primary team added losartan 50 mg/day started lasix 20 mg/day stable from renal perspective Please call if any Qs Objective - Vital Signs/Intake and Output Vital Signs (last 24 hours): Temp Pulse Resp BP Pulse Ox 98.1 F 66 20 147/86 99 05/24/18 07:00 05/24/18 07:00 05/24/18 07:00 05/24/18 10:06 05/24/18 07:00 Intake and Output: 05/24/18 05/24/18 06:59 18:59 Intake Total 700 Output Total 255 Balance 445 - Medications Medications: Current Medications Amlodipine Besylate (Norvasc) 5 mg PO DAILY [facility] Last Admin: 05/24/18 09:07 Dose: 5 mg Carvedilol (Coreg) 25 mg PO BID [facility] Last Admin: 05/24/18 10:06 Dose: 25 mg Clopidogrel Bisulfate (Plavix) 75 mg PO DAILY [facility] Last Admin: 05/24/18 09:08 Dose: 75 mg Dorzolamide HCl (Trusopt) 0.05 ml OU BID [facility] Famotidine (Pepcid) 20 mg PO BID [facility] Last Admin: 05/24/18 09:08 Dose: 20 mg Furosemide (Lasix) 20 mg PO DAILY [facility] Last Admin: 05/24/18 09:08 Dose: 20 mg Heparin Sodium (Porcine) (Heparin) 5,000 units SC Q8 [facility] Last Admin: 05/24/18 13:44 Dose: 5,000 units Imipenem/Cilastatin Sodium 500 (mg/ Sodium Chloride) 100 mls @ 166.667 mls/hr IVPB Q6H [facility]; Protocol Last Admin: 05/24/18 13:44 Dose: 166.667 mls/hr Insulin Aspart (Novolog) 0 unit SC ACHS [facility]; Protocol Last Admin: 05/24/18 11:50 Dose: 1 unit Losartan Potassium (Cozaar) 50 mg PO DAILY [facility] Last Admin: 05/24/18 09:08 Dose: 50 mg Magnesium Oxide (Mag-Ox) 400 mg PO BID [facility] Morphine Sulfate (Morphine) 2 mg IVP Q4 PRN PRN Reason: Pain, moderate (4-7) Last Admin: 05/24/18 08:36 Dose: 2 mg Ondansetron HCl (Zofran Inj) 4 mg IVP Q4H PRN PRN Reason: Nausea/Vomiting Last Admin: 05/23/18 17:45 Dose: 4 mg Potassium Chloride (K-Dur 20 Meq Er Tab) 20 meq PO BID [facility] Stop: 05/29/18 18:01 Timolol Maleate (Timoptic 0.5% Oph Soln) 1 drop OU BID [facility] - Labs Labs: 05/24/18 05:43 05/24/18 05:43 PT 14.8 SECONDS (9.7-12.2) H 05/17/18 06:32 INR 1.4 05/17/18 06:32 APTT 28 SECONDS (21-34) 05/17/18 06:32
--- NOTE | 2018-05-24 16:33 | PCM.HF ---
Heart Failure Core Measure - Heart Failure Ejection Fraction: 40 % or Greater (EF 70%) LARRY Inhibitor Prescribed: No Contraindication/Reason for not providing: on arb Beta-Hubert Prescribed: Carvedilol Angiotensin II Receptor Hubert Prescribed: Yes AnticoagulationTherapy for Atrial Fibrillation/Atrialflutter: No Contraindication/Reason for not providing: no afib Aldosterone Antagonist Prescribed: No Contraindication/Reason for not providing: BP at the low side Hydralazine Nitrate Prescribed: No Contraindication/Reason for not providing: EF>40% Implantable Cardioverter Defibrillator Therapy: No Contraindication/Reason for not providing: EF >40% Cardiac Resynchronization Therapy Prescribed: No Contraindication/Reason for not providing: not indicated - Follow up Will be discharged to: [facility] ([facility])
--- NOTE | 2018-05-24 16:37 | CP.PCM.PN ---
Subjective - Date & Time of Evaluation Date of Evaluation: 05/24/18 Time of Evaluation: 11:00 - Subjective Subjective: Awake, alert, denies sob or chest pains, NAD. Objective - Vital Signs/Intake and Output Vital Signs (last 24 hours): Temp Pulse Resp BP Pulse Ox 98.5 F 70 20 115/75 96 05/24/18 16:14 05/24/18 16:14 05/24/18 16:14 05/24/18 16:14 05/24/18 16:14 Intake and Output: 05/24/18 05/24/18 06:59 18:59 Intake Total 700 Output Total 255 Balance 445 - Medications Medications: Current Medications Amlodipine Besylate (Norvasc) 5 mg PO DAILY [facility] Last Admin: 05/24/18 09:07 Dose: 5 mg Carvedilol (Coreg) 25 mg PO BID [facility] Last Admin: 05/24/18 10:06 Dose: 25 mg Clopidogrel Bisulfate (Plavix) 75 mg PO DAILY [facility] Last Admin: 05/24/18 09:08 Dose: 75 mg Dorzolamide HCl (Trusopt) 0.05 ml OU BID [facility] Famotidine (Pepcid) 20 mg PO BID [facility] Last Admin: 05/24/18 09:08 Dose: 20 mg Furosemide (Lasix) 20 mg PO DAILY [facility] Last Admin: 05/24/18 09:08 Dose: 20 mg Heparin Sodium (Porcine) (Heparin) 5,000 units SC Q8 [facility] Last Admin: 05/24/18 13:44 Dose: 5,000 units Imipenem/Cilastatin Sodium 500 (mg/ Sodium Chloride) 100 mls @ 166.667 mls/hr IVPB Q6H [facility]; Protocol Last Admin: 05/24/18 13:44 Dose: 166.667 mls/hr Insulin Aspart (Novolog) 0 unit SC ACHS [facility]; Protocol Last Admin: 05/24/18 11:50 Dose: 1 unit Losartan Potassium (Cozaar) 50 mg PO DAILY [facility] Last Admin: 05/24/18 09:08 Dose: 50 mg Magnesium Oxide (Mag-Ox) 400 mg PO BID [facility] Morphine Sulfate (Morphine) 2 mg IVP Q4 PRN PRN Reason: Pain, moderate (4-7) Last Admin: 05/24/18 16:05 Dose: 2 mg Ondansetron HCl (Zofran Inj) 4 mg IVP Q4H PRN PRN Reason: Nausea/Vomiting Last Admin: 05/23/18 17:45 Dose: 4 mg Potassium Chloride (K-Dur 20 Meq Er Tab) 20 meq PO BID [facility] Stop: 05/29/18 18:01 Timolol Maleate (Timoptic 0.5% Ophth Soln) 1 drop OU BID [facility] - Labs Labs: 05/24/18 05:43 05/24/18 05:43 PT 14.8 SECONDS (9.7-12.2) H 05/17/18 06:32 INR 1.4 05/17/18 06:32 APTT 28 SECONDS (21-34) 05/17/18 06:32 Assessment and Plan - Assessment and Plan (Free Text) Assessment: Patient came from ICU, seen and examined. Awake , alert, no sob, no acute distress. As per DR Ashkan Anton plan to discharge to [facility] for rehab when bed available. Antibiotics as per DR Whitfield, will follow up.
[2018-05-24] MEDS: Magnesium Oxide 400 mg Tab UD PO SCH (17:44)
[2018-05-24] MEDS: TIMOLOL MALEATE 0.5% OU SCH (17:46)
[2018-05-24] MEDS: Dorzolamide 2% Opht Sol 10ml OU SCH ×2 (17:46→17:56)
--- NOTE | 2018-05-24 20:37 | CP.PCM.PN ---
Subjective - Date & Time of Evaluation Date of Evaluation: 05/24/18 Time of Evaluation: 20:34 - Subjective Subjective: INFECTIOUS DISEASE PROGRESS NOTES POOJA CAREY MD,FACP 05/24/2018 3T 369-B CHART REVIEWED PT EXAMINED CASE DISCUSSED RESPONDING TO EMPIRIC/THERAPEUTIC TREATMENT PLANS, ESPECIALLY POST SURGERY pe: vs as below gen: nad sclera: anicteric op: clear neck: supple no thyromegaly cv: +S1+s2 no rub abd: trae drain, no appreciable organomegaly lungs: reduced bs at bases with rales ext: 1+ edema neuro: a+ox3 no focal defecit psych: flat skin no jose SWITCH TO CIPRO/FLAGYL ABOUT 3-5 DAYS, WILL NEED ID JUDGEMENT. CALL ME TO FOLLOW IF POSSIBLE. Objective - Vital Signs/Intake and Output Vital Signs (last 24 hours): Temp Pulse Resp BP Pulse Ox 98.5 F 70 20 115/75 96 05/24/18 16:14 05/24/18 16:14 05/24/18 16:14 05/24/18 17:45 05/24/18 16:14 Intake and Output: 05/24/18 05/25/18 18:59 06:59 Intake Total 700 Output Total 255 Balance 445 - Medications Medications: Current Medications Amlodipine Besylate (Norvasc) 5 mg PO DAILY [facility] Last Admin: 05/24/18 09:07 Dose: 5 mg Carvedilol (Coreg) 25 mg PO BID [facility] Last Admin: 05/24/18 17:45 Dose: 25 mg Clopidogrel Bisulfate (Plavix) 75 mg PO DAILY [facility] Last Admin: 05/24/18 09:08 Dose: 75 mg Dorzolamide HCl (Trusopt) 0.05 ml OU BID [facility] Last Admin: 05/24/18 17:56 Dose: Not Given Famotidine (Pepcid) 20 mg PO BID [facility] Last Admin: 05/24/18 17:45 Dose: 20 mg Furosemide (Lasix) 20 mg PO DAILY [facility] Last Admin: 05/24/18 09:08 Dose: 20 mg Heparin Sodium (Porcine) (Heparin) 5,000 units SC Q8 [facility] Last Admin: 05/24/18 13:44 Dose: 5,000 units Insulin Aspart (Novolog) 0 unit SC ACHS [facility]; Protocol Last Admin: 05/24/18 17:47 Dose: 1 unit Losartan Potassium (Cozaar) 50 mg PO DAILY [facility] Last Admin: 05/24/18 09:08 Dose: 50 mg Magnesium Oxide (Mag-Ox) 400 mg PO BID [facility] Last Admin: 05/24/18 17:44 Dose: 400 mg Metronidazole (Flagyl) 500 mg PO TID [facility]; Protocol Morphine Sulfate (Morphine) 2 mg IVP Q4 PRN PRN Reason: Pain, moderate (4-7) Last Admin: 05/24/18 20:07 Dose: 2 mg Ondansetron HCl (Zofran Inj) 4 mg IVP Q4H PRN PRN Reason: Nausea/Vomiting Last Admin: 05/23/18 17:45 Dose: 4 mg Potassium Chloride (K-Dur 20 Meq Er Tab) 20 meq PO BID [facility] Stop: 05/29/18 18:01 Last Admin: 05/24/18 17:45 Dose: 20 meq Timolol Maleate (Timoptic 0.5% Ophth Soln) 1 drop OU BID [facility] Last Admin: 05/24/18 17:46 Dose: 1 drp - Labs Labs: 05/24/18 05:43 05/24/18 05:43 PT 14.8 SECONDS (9.7-12.2) H 05/17/18 06:32 INR 1.4 05/17/18 06:32 APTT 28 SECONDS (21-34) 05/17/18 06:32
[2018-05-25 08:15] LABS: BASO # 0.1 K/uL (0.0-0.2); BASO % 0.5 % (0.0-2.0); EOS # 0.1 K/uL (0.0-0.7); EOS % 1.1 % (0.0-4.0); HEMOGLOBIN 9.7 g/dL (11.0-16.0); LYMPH # 1.4 K/uL (1.0-4.3); LYMPH % 13.5 % (20.0-40.0); MEAN CELL VOLUME 81.3 fL (81.0-99.0); MEAN PLATELET VOLUME 9.7 fL (7.2-11.7); MONO # 0.7 K/uL (0.0-0.8); NEUT # 8.3 K/uL (1.8-7.0); NEUT % 77.9 % (50.0-75.0); RBC 3.72 Mil/uL (3.80-5.20); RED CELL DISTRIBUTION WIDTH 17.6 % (11.5-14.5); WHITE BLOOD COUNT 10.6 K/uL (4.8-10.8)
--- NOTE | 2018-05-25 08:23 | CP.PCM.PN ---
Subjective - Date & Time of Evaluation Date of Evaluation: 05/25/18 Time of Evaluation: 07:00 - Subjective Subjective: Surgery Progress note. Dr. Dobbs Pt seen and examined at bedside. No acute events overnight. No N/V. Reports flatus but no BM. Does report some crampy lower abd pain which is intermittent. No new complaints. Objective - Vital Signs/Intake and Output Vital Signs (last 24 hours): Temp Pulse Resp BP Pulse Ox 98.3 F 79 20 111/70 95 05/25/18 07:00 05/25/18 07:00 05/25/18 07:00 05/25/18 07:00 05/25/18 07:00 Intake and Output: 05/25/18 05/25/18 06:59 18:59 Intake Total 550 Output Total 380 Balance 170 - Medications Medications: Current Medications Amlodipine Besylate (Norvasc) 5 mg PO DAILY [facility] Last Admin: 05/24/18 09:07 Dose: 5 mg Carvedilol (Coreg) 25 mg PO BID [facility] Last Admin: 05/24/18 17:45 Dose: 25 mg Ciprofloxacin (Cipro) 500 mg PO BID [facility]; Protocol Clopidogrel Bisulfate (Plavix) 75 mg PO DAILY [facility] Last Admin: 05/24/18 09:08 Dose: 75 mg Dorzolamide HCl (Trusopt) 0.05 ml OU BID [facility] Last Admin: 05/24/18 17:56 Dose: Not Given Famotidine (Pepcid) 20 mg PO BID [facility] Last Admin: 05/24/18 17:45 Dose: 20 mg Furosemide (Lasix) 20 mg PO DAILY [facility] Last Admin: 05/24/18 09:08 Dose: 20 mg Heparin Sodium (Porcine) (Heparin) 5,000 units SC Q8 [facility] Last Admin: 05/25/18 05:06 Dose: 5,000 units Insulin Aspart (Novolog) 0 unit SC ACHS [facility]; Protocol Last Admin: 05/24/18 21:23 Dose: Not Given Losartan Potassium (Cozaar) 50 mg PO DAILY [facility] Last Admin: 05/24/18 09:08 Dose: 50 mg Magnesium Oxide (Mag-Ox) 400 mg PO BID [facility] Last Admin: 05/24/18 17:44 Dose: 400 mg Metronidazole (Flagyl) 500 mg PO TID [facility]; Protocol Morphine Sulfate (Morphine) 2 mg IVP Q4 PRN PRN Reason: Pain, moderate (4-7) Last Admin: 05/24/18 20:07 Dose: 2 mg Ondansetron HCl (Zofran Inj) 4 mg IVP Q4H PRN PRN Reason: Nausea/Vomiting Last Admin: 05/23/18 17:45 Dose: 4 mg Potassium Chloride (K-Dur 20 Meq Er Tab) 20 meq PO BID [facility] Stop: 05/29/18 18:01 Last Admin: 05/24/18 17:45 Dose: 20 meq Timolol Maleate (Timoptic 0.5% Ophth Soln) 1 drop OU BID [facility] Last Admin: 05/24/18 17:46 Dose: 1 drp - Labs Labs: 05/25/18 07:55 05/24/18 05:43 PT 14.8 SECONDS (9.7-12.2) H 05/17/18 06:32 INR 1.4 05/17/18 06:32 APTT 28 SECONDS (21-34) 05/17/18 06:32 - Constitutional Appears: Well, Non-toxic, No Acute Distress - Head Exam Head Exam: ATRAUMATIC, NORMAL INSPECTION, NORMOCEPHALIC - Eye Exam Eye Exam: EOMI, Normal appearance - ENT Exam ENT Exam: Mucous Membranes Moist, Normal Exam - Neck Exam Neck Exam: Normal Inspection - Respiratory Exam Respiratory Exam: NORMAL BREATHING PATTERN. absent: Accessory Muscle Use, Respiratory Distress - Cardiovascular Exam Cardiovascular Exam: absent: JVD - GI/Abdominal Exam GI & Abdominal Exam: Soft. absent: Distended, Firm, Guarding, Rebound Additional comments: Incision clean, dry and intact with iam. - Extremities Exam Extremities Exam: Normal Inspection. absent: Calf Tenderness - Neurological Exam Neurological Exam: Alert, Awake, Oriented x3 - Skin Skin Exam: Dry, Intact, Normal Color, Warm Assessment and Plan - Assessment and Plan (Free Text) Assessment: 77yo F s/p LAR w primary anastomosis and appendectomy for necrotic sigmoid mass. POD 8 Plan: -Regular diet - Encourage IS use, Ambulation - Pain management - f/u official path report - monitor for bowel function Further recs as per Dr. Dilia Madison PGY2 Surgery
[2018-05-25] MEDS: (Novolog) Insulin Aspart, Recombinant 100 u/ml 10 ml vial SC SCH ×4 (08:35→21:44)
[2018-05-25] MEDS: Magnesium Oxide 400 mg Tab UD PO SCH ×2 (09:12→17:20)
[2018-05-25] MEDS: Potassium Chloride 20 mEq ER Tab PO SCH ×2 (09:12→17:20)
[2018-05-25] MEDS: Dorzolamide 2% Opht Sol 10ml OU SCH ×2 (09:14→17:30)
[2018-05-25] MEDS: TIMOLOL MALEATE 0.5% OU SCH ×2 (09:15→17:22)
--- NOTE | 2018-05-25 10:49 | CP.PCM.PN ---
Subjective - Date & Time of Evaluation Date of Evaluation: 05/25/18 Time of Evaluation: 10:47 - Subjective Subjective: doing well awaiting final psthology. discussed with Dr Vizcarra. malignant further stains pending Objective - Vital Signs/Intake and Output Vital Signs (last 24 hours): Temp Pulse Resp BP Pulse Ox 98.3 F 79 20 111/70 95 05/25/18 07:00 05/25/18 07:00 05/25/18 07:00 05/25/18 09:13 05/25/18 07:00 Intake and Output: 05/25/18 05/25/18 06:59 18:59 Intake Total 550 Output Total 380 Balance 170 - Medications Medications: Current Medications Amlodipine Besylate (Norvasc) 5 mg PO DAILY [facility] Last Admin: 05/25/18 09:12 Dose: 5 mg Carvedilol (Coreg) 25 mg PO BID [facility] Last Admin: 05/25/18 09:13 Dose: 25 mg Ciprofloxacin (Cipro) 500 mg PO BID [facility]; Protocol Last Admin: 05/25/18 09:29 Dose: 500 mg Clopidogrel Bisulfate (Plavix) 75 mg PO DAILY [facility] Last Admin: 05/25/18 09:12 Dose: 75 mg Dorzolamide HCl (Trusopt) 0.05 ml OU BID [facility] Last Admin: 05/25/18 09:14 Dose: 1 drop Famotidine (Pepcid) 20 mg PO BID [facility] Last Admin: 05/25/18 09:12 Dose: 20 mg Furosemide (Lasix) 20 mg PO DAILY [facility] Last Admin: 05/25/18 09:12 Dose: 20 mg Heparin Sodium (Porcine) (Heparin) 5,000 units SC Q8 [facility] Last Admin: 05/25/18 05:06 Dose: 5,000 units Insulin Aspart (Novolog) 0 unit SC ACHS [facility]; Protocol Last Admin: 05/25/18 08:35 Dose: 1 unit Losartan Potassium (Cozaar) 50 mg PO DAILY [facility] Last Admin: 05/25/18 09:12 Dose: 50 mg Magnesium Oxide (Mag-Ox) 400 mg PO BID [facility] Last Admin: 05/25/18 09:12 Dose: 400 mg Metronidazole (Flagyl) 500 mg PO TID [facility]; Protocol Last Admin: 05/25/18 09:28 Dose: 500 mg Morphine Sulfate (Morphine) 2 mg IVP Q4 PRN PRN Reason: Pain, moderate (4-7) Last Admin: 05/25/18 08:41 Dose: 2 mg Ondansetron HCl (Zofran Inj) 4 mg IVP Q4H PRN PRN Reason: Nausea/Vomiting Last Admin: 05/23/18 17:45 Dose: 4 mg Potassium Chloride (K-Dur 20 Meq Er Tab) 20 meq PO BID [facility] Stop: 05/29/18 18:01 Last Admin: 05/25/18 09:12 Dose: 20 meq Timolol Maleate (Timoptic 0.5% Ophth Soln) 1 drop OU BID [facility] Last Admin: 05/25/18 09:15 Dose: 1 drp - Labs Labs: 05/25/18 07:55 05/24/18 05:43 PT 14.8 SECONDS (9.7-12.2) H 05/17/18 06:32 INR 1.4 05/17/18 06:32 APTT 28 SECONDS (21-34) 05/17/18 06:32
[2018-05-26] MEDS: (Novolog) Insulin Aspart, Recombinant 100 u/ml 10 ml vial SC SCH ×4 (08:10→22:10)
[2018-05-26 08:13] LABS: BASO % 0.4 % (0.0-2.0); EOS # 0.1 K/uL (0.0-0.7); EOS % 0.4 % (0.0-4.0); HEMOGLOBIN 9.8 g/dL (11.0-16.0); LYMPH # 1.2 K/uL (1.0-4.3); LYMPH % 10.5 % (20.0-40.0); MEAN CELL VOLUME 81.8 fL (81.0-99.0); MEAN CORPUSCULAR HEMOGLOBIN 26.3 pg (27.0-31.0); MEAN CORPUSCULAR HGB CONC 32.1 g/dL (33.0-37.0); MONO # 0.8 K/uL (0.0-0.8); MONO % 7.2 % (0.0-10.0); NEUT # 9.4 K/uL (1.8-7.0); NEUT % 81.5 % (50.0-75.0); RBC 3.74 Mil/uL (3.80-5.20); RED CELL DISTRIBUTION WIDTH 17.2 % (11.5-14.5); WHITE BLOOD COUNT 11.5 K/uL (4.8-10.8)
[2018-05-26 08:23] LABS: ALT/SGPT 22 U/L (9-52); AST/SGOT 12 U/L (14-36); BLOOD UREA NITROGEN 23 mg/dL (7-17); CALCIUM 8.1 mg/dl (8.6-10.4); GFR NON-AFRICAN AMERICAN > 60
[2018-05-26] MEDS: Potassium Chloride 20 mEq ER Tab PO SCH ×2 (09:15→17:37)
[2018-05-26] MEDS: Magnesium Oxide 400 mg Tab UD PO SCH ×2 (09:15→17:41)
[2018-05-26] MEDS: Dorzolamide 2% Opht Sol 10ml OU SCH ×2 (09:16→17:40)
[2018-05-26] MEDS: TIMOLOL MALEATE 0.5% OU SCH ×2 (09:16→17:40)
--- NOTE | 2018-05-26 09:17 | CP.PCM.PN ---
Subjective - Date & Time of Evaluation Date of Evaluation: 05/26/18 Time of Evaluation: 09:15 - Subjective Subjective: General Surgery Progress Note for Dr. Dobbs This 77F was seen and examined this AM at bedside no acute events overnight. Pt is tolerating regular diet passing flatus moving her bowels. She denies chest pain or SOB. She is reluctant to get out of bed and is complaining of back pain. Objective - Vital Signs/Intake and Output Vital Signs (last 24 hours): Temp Pulse Resp BP Pulse Ox 98.2 F 68 20 119/78 96 05/26/18 08:00 05/26/18 08:00 05/26/18 08:00 05/26/18 08:00 05/26/18 08:00 Intake and Output: 05/26/18 05/26/18 06:59 18:59 Intake Total 400 150 Output Total 300 Balance 400 -150 - Medications Medications: Current Medications Amlodipine Besylate (Norvasc) 5 mg PO DAILY [facility] Last Admin: 05/25/18 09:12 Dose: 5 mg Carvedilol (Coreg) 25 mg PO BID [facility] Last Admin: 05/25/18 18:03 Dose: 25 mg Ciprofloxacin (Cipro) 500 mg PO BID [facility]; Protocol Last Admin: 05/25/18 17:20 Dose: 500 mg Clopidogrel Bisulfate (Plavix) 75 mg PO DAILY [facility] Last Admin: 05/25/18 09:12 Dose: 75 mg Dorzolamide HCl (Trusopt) 0.05 ml OU BID [facility] Last Admin: 05/25/18 17:30 Dose: 1 drop Famotidine (Pepcid) 20 mg PO BID [facility] Last Admin: 05/25/18 17:21 Dose: 20 mg Furosemide (Lasix) 20 mg PO DAILY [facility] Last Admin: 05/25/18 09:12 Dose: 20 mg Heparin Sodium (Porcine) (Heparin) 5,000 units SC Q8 [facility] Last Admin: 05/26/18 05:37 Dose: 5,000 units Insulin Aspart (Novolog) 0 unit SC ACHS [facility]; Protocol Last Admin: 05/26/18 08:10 Dose: 1 unit Losartan Potassium (Cozaar) 50 mg PO DAILY [facility] Last Admin: 05/25/18 09:12 Dose: 50 mg Magnesium Oxide (Mag-Ox) 400 mg PO BID [facility] Last Admin: 05/25/18 17:20 Dose: 400 mg Metronidazole (Flagyl) 500 mg PO TID [facility]; Protocol Last Admin: 05/25/18 17:21 Dose: 500 mg Morphine Sulfate (Morphine) 2 mg IVP Q4 PRN PRN Reason: Pain, moderate (4-7) Last Admin: 05/26/18 08:18 Dose: 2 mg Ondansetron HCl (Zofran Inj) 4 mg IVP Q4H PRN PRN Reason: Nausea/Vomiting Last Admin: 05/23/18 17:45 Dose: 4 mg Potassium Chloride (K-Dur 20 Meq Er Tab) 20 meq PO BID [facility] Stop: 05/29/18 18:01 Last Admin: 05/25/18 17:20 Dose: 20 meq Timolol Maleate (Timoptic 0.5% Ophth Soln) 1 drop OU BID [facility] Last Admin: 05/25/18 17:22 Dose: 1 drp - Labs Labs: 05/26/18 07:49 05/26/18 07:49 PT 14.8 SECONDS (9.7-12.2) H 05/17/18 06:32 INR 1.4 05/17/18 06:32 APTT 28 SECONDS (21-34) 05/17/18 06:32 - Constitutional Appears: Well, No Acute Distress - Head Exam Head Exam: ATRAUMATIC, NORMOCEPHALIC - Eye Exam Eye Exam: Normal appearance - ENT Exam ENT Exam: Mucous Membranes Moist - Respiratory Exam Respiratory Exam: NORMAL BREATHING PATTERN - Cardiovascular Exam Cardiovascular Exam: Tachycardia, RRR - GI/Abdominal Exam GI & Abdominal Exam: Soft. absent: Distended, Rebound, Tenderness Wound well approximated non draining non erythematous with iam in place. - Neurological Exam Neurological Exam: Alert, Awake, Oriented x3 - Skin Skin Exam: Dry, Warm Assessment and Plan - Assessment and Plan (Free Text) Assessment: 77F s/p LAR with primary anastomosis & appendectomy for necrotic sigmoid mass; POD#9 Plan: - regular diet - Ambulation - pain management - f/u path which was sent out - Clear for discharge at the discretion of primary care provider - d/w Dr. Dilia Walsh PGY3
--- NOTE | 2018-05-26 13:03 | CP.PCM.PN ---
Subjective - Date & Time of Evaluation Date of Evaluation: 05/26/18 Time of Evaluation: 12:58 - Subjective Subjective: Pulmonary Follow up, Covering Dr Alston The patient was Seen/interviewed and examined by me at the bedside, Medical records reviewed and Management issues were discussed and formulated with the house staff. Events reviewed POD#9 s/p open LAR with colorectal anastomosis and incidental appendectomy. Comfortable, pain controlled Afebrile Denies SOB, chest pain, cough or fever/chills AM Labs with stable H/H, BUN up to 23, will encourage PO fluids Patient encouraged to OOB to chair Incentive spirometry Objective - Vital Signs/Intake and Output Vital Signs (last 24 hours): Temp Pulse Resp BP Pulse Ox 98.2 F 68 20 119/78 96 05/26/18 08:00 05/26/18 08:00 05/26/18 08:00 05/26/18 09:14 05/26/18 08:00 Intake and Output: 05/26/18 05/26/18 06:59 18:59 Intake Total 400 150 Output Total 300 Balance 400 -150 - Medications Medications: Current Medications Amlodipine Besylate (Norvasc) 5 mg PO DAILY [facility] Last Admin: 05/26/18 09:15 Dose: 5 mg Carvedilol (Coreg) 25 mg PO BID [facility] Last Admin: 05/26/18 09:14 Dose: 25 mg Ciprofloxacin (Cipro) 500 mg PO BID [facility]; Protocol Last Admin: 05/26/18 09:15 Dose: 500 mg Clopidogrel Bisulfate (Plavix) 75 mg PO DAILY [facility] Last Admin: 05/26/18 09:14 Dose: 75 mg Dorzolamide HCl (Trusopt) 0.05 ml OU BID [facility] Last Admin: 05/26/18 09:16 Dose: 1 drop Famotidine (Pepcid) 20 mg PO BID [facility] Last Admin: 05/26/18 09:14 Dose: 20 mg Furosemide (Lasix) 20 mg PO DAILY [facility] Last Admin: 05/26/18 09:14 Dose: 20 mg Heparin Sodium (Porcine) (Heparin) 5,000 units SC Q8 [facility] Last Admin: 05/26/18 05:37 Dose: 5,000 units Insulin Aspart (Novolog) 0 unit SC ACHS [facility]; Protocol Last Admin: 05/26/18 12:00 Dose: Not Given Losartan Potassium (Cozaar) 50 mg PO DAILY [facility] Last Admin: 05/26/18 09:14 Dose: 50 mg Magnesium Oxide (Mag-Ox) 400 mg PO BID [facility] Last Admin: 05/26/18 09:15 Dose: 400 mg Metronidazole (Flagyl) 500 mg PO TID [facility]; Protocol Last Admin: 05/26/18 09:14 Dose: 500 mg Morphine Sulfate (Morphine) 2 mg IVP Q4 PRN PRN Reason: Pain, moderate (4-7) Last Admin: 05/26/18 08:18 Dose: 2 mg Ondansetron HCl (Zofran Inj) 4 mg IVP Q4H PRN PRN Reason: Nausea/Vomiting Last Admin: 05/23/18 17:45 Dose: 4 mg Potassium Chloride (K-Dur 20 Meq Er Tab) 20 meq PO BID [facility] Stop: 05/29/18 18:01 Last Admin: 05/26/18 09:15 Dose: 20 meq Timolol Maleate (Timoptic 0.5% Oph Soln) 1 drop OU BID [facility] Last Admin: 05/26/18 09:16 Dose: 1 drp - Labs Labs: 05/26/18 07:49 05/26/18 07:49 PT 14.8 SECONDS (9.7-12.2) H 05/17/18 06:32 INR 1.4 05/17/18 06:32 APTT 28 SECONDS (21-34) 05/17/18 06:32
[2018-05-27] MEDS: (Novolog) Insulin Aspart, Recombinant 100 u/ml 10 ml vial SC SCH ×3 (08:17→17:30)
[2018-05-27] MEDS: Magnesium Oxide 400 mg Tab UD PO SCH ×2 (09:32→18:08)
[2018-05-27] MEDS: Potassium Chloride 20 mEq ER Tab PO SCH ×2 (09:33→18:08)
[2018-05-27] MEDS: Dorzolamide 2% Opht Sol 10ml OU SCH ×2 (12:47→18:07)
[2018-05-27] MEDS: TIMOLOL MALEATE 0.5% OU SCH ×2 (12:47→18:07)
[2018-05-27 13:56] LABS: BASO # 0.1 K/uL (0.0-0.2); BASO % 0.4 % (0.0-2.0); EOS % 0.2 % (0.0-4.0); HEMOGLOBIN 9.7 g/dL (11.0-16.0); LYMPH # 1.1 K/uL (1.0-4.3); LYMPH % 6.4 % (20.0-40.0); MEAN CELL VOLUME 81.8 fL (81.0-99.0); MEAN CORPUSCULAR HEMOGLOBIN 26.1 pg (27.0-31.0); MONO # 1.4 K/uL (0.0-0.8); MONO % 7.8 % (0.0-10.0); NEUT # 14.9 K/uL (1.8-7.0); NEUT % 85.2 % (50.0-75.0); NRBC % 0.1 % (0.0-2.0); PLATELET COUNT 248 K/uL (130-400); RED CELL DISTRIBUTION WIDTH 18.4 % (11.5-14.5); WHITE BLOOD COUNT 17.4 K/uL (4.8-10.8)
[2018-05-27 14:13] LABS: BLOOD UREA NITROGEN 28 mg/dL (7-17); CALCIUM 8.3 mg/dl (8.6-10.4); GFR NON-AFRICAN AMERICAN > 60
--- NOTE | 2018-05-27 14:47 | CP.PCM.PN ---
Subjective - Date & Time of Evaluation Date of Evaluation: 05/27/18 Time of Evaluation: 14:47 - Subjective Subjective: RENAL Note: seen and examined feels better pain reasonably controlled denies SOB. no chest pain pe: vs as below gen: nad sclera: anicteric op: clear neck: supple no thyromegaly cv: +S1+s2 no rub abd: soft no appreciable organomegaly lungs: reduced bs at bases clearer ext: no edema neuro: a+ox3 no focal defecit psych: flat skin no rash labs and imaging reviewed imp: ARF/ Colon mass/ ANemia / hypokalemia/ hypomagnesemia/hyponatremia ? SIADH with elevated urine osmol and Na plan: cr improved supplement lytes as ordered f/u path on colon mass transfusions per primary team added losartan 50 mg/day started lasix 20 mg/day stable from renal perspective. pt for d/c to rehab soon Please call if any Qs Objective - Vital Signs/Intake and Output Vital Signs (last 24 hours): Temp Pulse Resp BP Pulse Ox 98.5 F 74 20 112/75 96 05/27/18 07:37 05/27/18 07:37 05/27/18 07:37 05/27/18 09:33 05/27/18 07:37 Intake and Output: 05/27/18 05/27/18 06:59 18:59 Intake Total 300 200 Output Total 451 300 Balance -151 -100 - Medications Medications: Current Medications Amlodipine Besylate (Norvasc) 5 mg PO DAILY [facility] Last Admin: 05/27/18 09:32 Dose: 5 mg Carvedilol (Coreg) 25 mg PO BID [facility] Last Admin: 05/27/18 09:33 Dose: 25 mg Ciprofloxacin (Cipro) 500 mg PO BID [facility]; Protocol Last Admin: 05/27/18 09:32 Dose: 500 mg Clopidogrel Bisulfate (Plavix) 75 mg PO DAILY [facility] Last Admin: 05/27/18 09:32 Dose: 75 mg Dorzolamide HCl (Trusopt) 0.05 ml OU BID [facility] Last Admin: 05/27/18 12:47 Dose: 1 drop Famotidine (Pepcid) 20 mg PO BID [facility] Last Admin: 05/27/18 09:32 Dose: 20 mg Furosemide (Lasix) 20 mg PO DAILY [facility] Last Admin: 05/27/18 09:33 Dose: 20 mg Insulin Aspart (Novolog) 0 unit SC ACHS [facility]; Protocol Last Admin: 05/27/18 12:41 Dose: 1 unit Losartan Potassium (Cozaar) 50 mg PO DAILY [facility] Last Admin: 05/27/18 09:32 Dose: 50 mg Magnesium Oxide (Mag-Ox) 400 mg PO BID [facility] Last Admin: 05/27/18 09:32 Dose: 400 mg Metronidazole (Flagyl) 500 mg PO TID [facility]; Protocol Last Admin: 05/27/18 09:32 Dose: 500 mg Morphine Sulfate (Morphine) 2 mg IVP Q4 PRN PRN Reason: Pain, moderate (4-7) Last Admin: 05/27/18 12:46 Dose: 2 mg Ondansetron HCl (Zofran Inj) 4 mg IVP Q4H PRN PRN Reason: Nausea/Vomiting Last Admin: 05/26/18 17:31 Dose: 4 mg Potassium Chloride (K-Dur 20 Meq Er Tab) 20 meq PO BID [facility] Stop: 05/29/18 18:01 Last Admin: 05/27/18 09:33 Dose: 20 meq Timolol Maleate ([facility]) 1 drop OU BID [facility] Last Admin: 05/27/18 12:47 Dose: 1 drp - Labs Labs: 05/27/18 13:43 05/27/18 13:38 PT 14.8 SECONDS (9.7-12.2) H 05/17/18 06:32 INR 1.4 05/17/18 06:32 APTT 28 SECONDS (21-34) 05/17/18 06:32
[2018-05-27 15:11] LABS: LYMPHOCYTE 5 % (20-40); MONOCYTE 4 % (0-10); NEUTROPHIL 91 % (50-75); PLATELET ESTIMATE NORMAL (NORMAL); TOTAL CELLS COUNTED 100
[2018-05-27 15:12] LABS: ANISOCYTOSIS SLIGHT; HYPOCHROMIC SLIGHT; POLYCHROMIC SLIGHT
[2018-05-27 16:11] VITALS: PULSE 84; TEMP 98.2; O2SAT 94
[2018-05-27 18:32] VITALS: BP 110/75
--- NOTE | 2018-05-28 08:55 | DS ---
HISTORY OF PRESENT ILLNESS: A 77-year-old female was brought in with small bowel obstruction. Workup had shown that she has possible volvulus. The patient was seen by [facility] workflow consultant, Dr. Abdi; surgical endoscopist, Dr. Dobbs; infectious [facility] workflow consultant, Dr. Whitfield; pulmonary [facility] workflow consultant with Dr. Alston. 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 The awaited pathology report is still not available. Presumably, it is carcinoma. Oncology consultation was requested, Dr. Pandey, but has not been seen yet. The patient moved her bowel yesterday. She is stable now. She is afebrile. Care of plan was explained to the patient and/or family who was at the bedside. She will be transferred today to rehab and will be followed by Dr. Samson. I will follow her as an outpatient. She will continue with her blood pressure medication and metformin. Also, she will be on Percocet, iron pill, vitamins, and Colace. I will see her back after discharge from the rehab. 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 Leander Acuna MD
== END 2018-05-27 19:03 | DRG 332 ==
LOC: C.ER 18:36 → C.3T 22:37 → C.9I 05-17 15:50 → C.3T 05-24 05:38
PROVIDERS: ADMIT Internal Medicine Cardiovascular Disease; ATTEND Internal Medicine Cardiovascular Disease
PROC: 0DTJ0ZZ Resection of Appendix, Open Approach (ICD-10-PCS; principal; 2018-05-17 12:45)
PROC: 0DTP0ZZ Resection of Rectum, Open Approach (ICD-10-PCS; 2018-05-17 12:45)
DX: C18.7 Malignant neoplasm of sigmoid colon (principal); K56.2 Volvulus; J18.9 Pneumonia, unspecified organism; N17.0 Acute kidney failure with tubular necrosis; E87.3 Alkalosis; E22.2 Syndrome of inappropriate secretion of antidiuretic hormone; I11.0 Hypertensive heart disease with heart failure; I50.9 Heart failure, unspecified; E11.9 Type 2 diabetes mellitus without complications; K80.20 Calculus of gallbladder without cholecystitis without obstruction; J44.0 Chronic obstructive pulmonary disease with (acute) lower respiratory infection; D64.9 Anemia, unspecified; E83.42 Hypomagnesemia; E87.6 Hypokalemia; I27.20 Pulmonary hypertension, unspecified; H40.9 Unspecified glaucoma; Z87.891 Personal history of nicotine dependence; Z88.0 Allergy status to penicillin; Z88.1 Allergy status to other antibiotic agents; Z88.2 Allergy status to sulfonamides; Z88.6 Allergy status to analgesic agent; Z80.0 Family history of malignant neoplasm of digestive organs